=== PATIENT | female | born 1965 | race African-American/Black ===

== ENCOUNTER 2016-07-13 19:09 | Emergency (ER) | payer MEDICAID ==
[~2016-07-13 19:09] MED LIST: ARIP10TA14 PO; BENADRYL; DILANTIN; PHEN100C4 PO; PREVACID; QUET100T PO; SOMA; TYLENOL #3; VICODIN
== END 2016-07-14 02:16 | disposition left against medical advice (07) ==
LOC: ER 07-14 01:10
DX: R45.851 Suicidal ideations (principal); Z53.21 Procedure and treatment not carried out due to patient leaving prior to being seen by health care provider

== ENCOUNTER 2016-07-14 01:54 | Emergency (ER) | payer MEDICAID ==
[~2016-07-14] VITALS: Ht 162.6 cm; Wt 62.0 kg
[2016-07-14 06:30] LABS: BASOPHILS % 0.6 % (0.0-2.0); DIFFERENTIAL COMMENT 0; EOSINOPHILS % 2.8 % (0.0-5.0); HEMATOCRIT. 33.3 % (36.0-48.0); HEMOGLOBIN. 10.6 g/dL (12.0-16.0); LYMPHOCYTES % 45.4 % (20.0-50.0); MEAN CORPUSCULAR HEMOGLOBIN 25.6 pg (28.0-32.0); MEAN CORPUSCULAR VOLUME 79.9 fL (81.0-99.0); MEAN PLATELET VOLUME 7.3 fl (7.4-10.4); MONOCYTES % 8.1 % (2.0-8.0); NEUTROPHILS % 43.1 % (40.0-76.0); PLATELET 264 x1000/uL (130-400); RED BLOOD CELL COUNT 4.16 mill/uL (4.2-5.4); RED CELL DISTRIBUTION WIDTH 20.4 % (11.6-14.6); WHITE BLOOD COUNT 4.3 x1000/uL (4.5-11.0)
[2016-07-14] MEDS ORDERED: OLANZAPINE 5MG TABLET ODT PO ONE (06:30)
[2016-07-14 06:36] LABS: CHLORIDE 102 mEq/L (98-107)
[2016-07-14 06:44] LABS: ACETAMINOPHEN < 2 ug/mL (10-30); ALANINE AMINOTRANSFERASE 28 IU/L (13-61); ALBUMIN 4.2 g/dL (3.4-5.0); ANION GAP 10; CALCIUM 9.5 mg/dL (8.5-10.1); CARBON DIOXIDE 34 mEq/L (21-32); ETHANOL BLOOD < 10 mg/dL; INDEX HEMOLYSI 1 (1-3); INDEX ICTERIC 1 (1-4); INDEX LIPEMIC 1 (1-3); UREA NITROGEN BLOOD 10 mg/dL (7-21); eGFR > 60 mL/min (>60)
[2016-07-14 06:47] LABS: CLARITY URINE CLEAR (CLEAR); COLOR URINE YELLOW (YELLOW); GLUCOSE URINE NEGATIVE (NEGATIVE); KETONES URINE NEGATIVE (NEGATIVE); LEUKOCYTE ESTERASE URINE 3+ (NEGATIVE); NITRITE URINE NEGATIVE (NEGATIVE); OCCULT BLOOD URINE TRACE (NEGATIVE); PH URINE 6.5 (4.5-8.0); PROTEIN URINE NEGATIVE (NEGATIVE); SPECIFIC GRAVITY URINE 1.015 (1.005-1.030); UROBILINOGEN URINE 0.2 E.U./dL (0.2-1.0)
[2016-07-14] MEDS ORDERED: IBUPROFEN 600MG TABLET PO ONE (07:00)
[2016-07-14] MEDS ORDERED: PHENYTOIN SODIUM EXTENDED 100MG CAPSULE PO ONE (07:00)
[2016-07-14 07:09] LABS: SQUAMOUS EPITHELIAL CELL URINE FEW /lpf (RARE/1+)
[2016-07-14 07:11] LABS: BACTERIA URINE NONE SEEN
[2016-07-14 07:13] LABS: *AMPHETAMINES SCREEN URINE NEGATIVE (NEGATIVE); *BARBITURATES SCREEN URINE NEGATIVE (NEGATIVE); *BENZODIAZEPINES SCREEN URINE NEGATIVE (NEGATIVE); *COCAINE SCREEN URINE NEGATIVE (NEGATIVE); CANNABINOID URINE SCREEN NEGATIVE (NEGATIVE); ECSTASY MDMA SCREEN URINE NEGATIVE (NEGATIVE); METHADONE URINE SCREEN NEGATIVE (NEGATIVE); OPIATES URINE SCREEN PRESUMTIVE POSITIVE (NEGATIVE); PHENCYCLIDINE URINE SCREEN NEGATIVE (NEGATIVE)
[2016-07-15] MEDS ORDERED: PHENYTOIN SODIUM EXTENDED 100MG CAPSULE PO ONE (08:15)
[2016-07-15] MEDS ORDERED: LORAZEPAM 1MG TABLET PO ONE (13:30)
[2016-07-15] MEDS: LORAZEPAM 0.5MG TABLET PO PRN ×2 (22:00→22:01)
[2016-07-16 09:30] VITALS: BP 114/92
[2016-07-16] MEDS ORDERED: ACETAMINOPHEN 325MG TABLET PO ONE (10:30)
[2016-07-16] MEDS ORDERED: PHENYTOIN SODIUM EXTENDED 100MG CAPSULE PO ONE (11:15)
== END 2016-07-16 12:34 | disposition home or self-care (01) ==
LOC: ER 02:40
DX: F25.9 Schizoaffective disorder, unspecified (principal); R45.851 Suicidal ideations; K85.90 Acute pancreatitis without necrosis or infection, unspecified; K21.9 Gastro-esophageal reflux disease without esophagitis; F31.9 Bipolar disorder, unspecified; F17.200 Nicotine dependence, unspecified, uncomplicated; M79.89 Other specified soft tissue disorders; R56.9 Unspecified convulsions; I25.2 Old myocardial infarction; F14.10 Cocaine abuse, uncomplicated; I10 Essential (primary) hypertension; Z85.42 Personal history of malignant neoplasm of other parts of uterus; Z86.73 Personal history of transient ischemic attack (TIA), and cerebral infarction without residual deficits; Z98.890 Other specified postprocedural states; Z98.51 Tubal ligation status; Z86.718 Personal history of other venous thrombosis and embolism
CPT/HCPCS: 36415; 73630; 80053; 80185; 80305; 80307; 80329; 81001; 85025; 99285; G0482; Z7610

== ENCOUNTER 2016-08-30 19:28 | Inpatient (IN) | payer MEDICAID ==
[~2016-08-30] VITALS: Ht 162.6 cm; Wt 66.2 kg
[2016-08-31] MEDS ORDERED: MORPHINE SULFATE 4 MG/ML CPJ (NOT FOR IM USE) IV STA (02:32)
[2016-08-31] MEDS ORDERED: ONDANSETRON HCL 4MG/2ML VIAL IV STA (02:32)
[2016-08-31 02:58] LABS: BASOPHILS % 0.5 % (0.0-2.0); EOSINOPHILS % 2.7 % (0.0-5.0); HEMATOCRIT. 31.3 % (36.0-48.0); HEMOGLOBIN. 10.1 g/dL (12.0-16.0); LYMPHOCYTES % 42.4 % (20.0-50.0); MEAN CORPUSCULAR HEMOGLOBIN 26.1 pg (28.0-32.0); MEAN CORPUSCULAR HGB CONC 32.2 g/dL (31.0-37.0); MEAN CORPUSCULAR VOLUME 81.1 fL (81.0-99.0); MEAN PLATELET VOLUME 7.7 fl (7.4-10.4); MONOCYTES % 12.7 % (2.0-8.0); NEUTROPHILS % 41.7 % (40.0-76.0); PLATELET 219 x1000/uL (130-400); RED BLOOD CELL COUNT 3.86 mill/uL (4.2-5.4); RED CELL DISTRIBUTION WIDTH 20.9 % (11.6-14.6); WHITE BLOOD COUNT 4.9 x1000/uL (4.5-11.0)
[2016-08-31 03:06] LABS: HCG SCREEN NEGATIVE; INR 1.1; PROTHROMBIN TIME 11.6 sec
[2016-08-31 03:12] LABS: ALANINE AMINOTRANSFERASE 21 IU/L (13-61); ALBUMIN 3.4 g/dL (3.4-5.0); CALCIUM 8.6 mg/dL (8.5-10.1); CARBON DIOXIDE 28 mEq/L (21-32); INDEX HEMOLYSI 1 (1-3); INDEX ICTERIC 1 (1-4); INDEX LIPEMIC 1 (1-3); LIPASE 278 IU/L (73-393); UREA NITROGEN BLOOD 13 mg/dL (7-21); eGFR > 60 mL/min (>60)
[2016-08-31 03:32] LABS: ANION GAP 14; CHLORIDE 105 mEq/L (98-107)
[2016-08-31 08:54] LABS: CLARITY URINE CLEAR (CLEAR); COLOR URINE DARK YELLOW (YELLOW); GLUCOSE URINE 1+ (NEGATIVE); KETONES URINE TRACE (NEGATIVE); LEUKOCYTE ESTERASE URINE NEGATIVE (NEGATIVE); NITRITE URINE NEGATIVE (NEGATIVE); OCCULT BLOOD URINE NEGATIVE (NEGATIVE); PROTEIN URINE NEGATIVE (NEGATIVE); SPECIFIC GRAVITY URINE 1.033 (1.005-1.030)
[2016-08-31] MEDS ORDERED: ASPIRIN 81MG TABLET PO STA (09:09)
[2016-08-31 09:11] LABS: BACTERIA URINE TRACE; MUCUS URINE 2+ /lpf (< = 2+); RBC URINE NONE SEEN /hpf (0-2); SQUAMOUS EPITHELIAL CELL URINE FEW /lpf (RARE/1+); WBC URINE 0-2 /hpf (0-2)
[2016-08-31] MEDS ORDERED: NITROGLYCERIN 0.4MG TABLET SL SL PRN (09:15)
[2016-08-31 09:44] LABS: D-DIMER 0.27 mg/L FEU (<0.50); INR 1.1; PROTHROMBIN TIME 11.5 sec
[2016-08-31] MEDS ORDERED: IOHEXOL-350 100 ML BOTTLE ONE (12:34)
[2016-08-31] MEDS ORDERED: SODIUM CHLORIDE 0.9% 10ML VIAL ONE (12:34)
[2016-08-31] MEDS ORDERED: MORPHINE SULFATE 2 MG/ML CPJ (NOT FOR IM USE) IV SCH (17:15)
[2016-08-31] MEDS ORDERED: ACETAMINOPHEN 650MG/20.3ML UDC GT PRN (18:15)
[2016-08-31] MEDS ORDERED: LORAZEPAM 2MG/ML CPJ IV PRN (18:15)
[2016-08-31] MEDS ORDERED: ONDANSETRON HCL 4MG/2ML VIAL IV PRN (18:15)
[2016-08-31] MEDS ORDERED: HYDROMORPHONE HCL/PF 2MG/ML CPJ IV PRN (18:15)
[2016-08-31] MEDS ORDERED: ENOXAPARIN 40MG/0.4ML SYR SUBCUT SCH (18:15)
[2016-08-31 19:38] LABS: NT PRO B-TYPE NATRIURETIC PEP 91 pg/mL (5-125); TROPONIN I < 0.02 ng/mL (0.00-0.04)
[2016-08-31 19:39] LABS: CREATINE KINASE MB FRACTION 2.3 ng/mL (0.5-3.6)
[2016-08-31] MEDS: MORPHINE SULFATE 2 MG/ML CPJ (NOT FOR IM USE) IV PRN (20:01)
[2016-08-31 23:42] LABS: *AMPHETAMINES SCREEN URINE NEGATIVE (NEGATIVE); *BARBITURATES SCREEN URINE NEGATIVE (NEGATIVE); *BENZODIAZEPINES SCREEN URINE NEGATIVE (NEGATIVE); *COCAINE SCREEN URINE PRESUMTIVE POSITIVE (NEGATIVE); CANNABINOID URINE SCREEN NEGATIVE (NEGATIVE); ECSTASY MDMA SCREEN URINE NEGATIVE (NEGATIVE); METHADONE URINE SCREEN NEGATIVE (NEGATIVE); OPIATES URINE SCREEN PRESUMTIVE POSITIVE (NEGATIVE); PHENCYCLIDINE URINE SCREEN NEGATIVE (NEGATIVE)
[2016-09-01] MEDS: MORPHINE SULFATE 2 MG/ML CPJ (NOT FOR IM USE) IV PRN ×4 (01:30→14:46)
[2016-09-01 06:51] LABS: BASOPHILS % 0.5 % (0.0-2.0); EOSINOPHILS % 2.2 % (0.0-5.0); HEMATOCRIT. 33.1 % (36.0-48.0); HEMOGLOBIN. 10.7 g/dL (12.0-16.0); LYMPHOCYTES % 59.6 % (20.0-50.0); MEAN CORPUSCULAR HEMOGLOBIN 25.8 pg (28.0-32.0); MEAN CORPUSCULAR HGB CONC 32.2 g/dL (31.0-37.0); MEAN CORPUSCULAR VOLUME 80.2 fL (81.0-99.0); MEAN PLATELET VOLUME 7.9 fl (7.4-10.4); MONOCYTES % 9.3 % (2.0-8.0); NEUTROPHILS % 28.4 % (40.0-76.0); PLATELET 237 x1000/uL (130-400); RED BLOOD CELL COUNT 4.13 mill/uL (4.2-5.4); WHITE BLOOD COUNT 4.2 x1000/uL (4.5-11.0)
[2016-09-01 07:48] LABS: ANION GAP 11; CALCIUM 8.6 mg/dL (8.5-10.1); CARBON DIOXIDE 31 mEq/L (21-32); CHLORIDE 103 mEq/L (98-107); CREATINE KINASE MB FRACTION 1.8 ng/mL (0.5-3.6); INDEX HEMOLYSI 1 (1-3); INDEX ICTERIC 1 (1-4); INDEX LIPEMIC 1 (1-3); UREA NITROGEN BLOOD 12 mg/dL (7-21); eGFR > 60 mL/min (>60)
[2016-09-01] MEDS: PHENYTOIN SODIUM EXTENDED 100MG CAPSULE PO SCH (12:52)
[2016-09-01] MEDS: ARIPIPRAZOLE 10MG TABLET PO SCH (12:52)
[2016-09-01] MEDS ORDERED: QUETIAPINE FUMARATE 100MG TABLET PO SCH (17:00)
[2016-09-01] MEDS: ENOXAPARIN 40MG/0.4ML SYR SUBCUT SCH ×2 (17:29→17:33)
[2016-09-02] MEDS: PHENYTOIN SODIUM EXTENDED 100MG CAPSULE PO SCH ×2 (00:19→06:06)
[2016-09-02] MEDS: MORPHINE SULFATE 2 MG/ML CPJ (NOT FOR IM USE) IV PRN ×2 (03:18→08:57)
[2016-09-02] MEDS: ARIPIPRAZOLE 10MG TABLET PO SCH (08:56)
[2016-09-02 10:08] VITALS: BP 141/80
== END 2016-09-02 12:00 | disposition home or self-care (01) | DRG 198 ==
LOC: ER 19:28 → 8WST 08-31 10:58
PROVIDERS: ADMIT Internal Medicine Nephrology; ATTEND Internal Medicine Nephrology
DX: R07.89 Other chest pain (principal); I25.2 Old myocardial infarction; I27.2 Other secondary pulmonary hypertension; I11.9 Hypertensive heart disease without heart failure; J44.9 Chronic obstructive pulmonary disease, unspecified; K21.9 Gastro-esophageal reflux disease without esophagitis; F19.10 Other psychoactive substance abuse, uncomplicated; F17.200 Nicotine dependence, unspecified, uncomplicated; Z59.0 Homelessness; Z79.01 Long term (current) use of anticoagulants; Z86.73 Personal history of transient ischemic attack (TIA), and cerebral infarction without residual deficits; Z86.718 Personal history of other venous thrombosis and embolism; Z91.19 Patient's noncompliance with other medical treatment and regimen; Z87.11 Personal history of peptic ulcer disease
CPT/HCPCS: 36415; 71010; 71275; 76705; 80048; 80053; 80305; 81001; 82553; 83690; 83880; 84484; 84703; 85025; 85379; 85610; 85730; 93005; 93970; 99285; A4216; J1650; J2270; Q9967

== ENCOUNTER 2016-10-02 16:43 | Emergency (ER) | payer MEDICAID ==
[~2016-10-02] VITALS: Ht 162.6 cm; Wt 66.0 kg
[~2016-10-02 16:43] MED LIST changes: +ABIL10 PO; -ARIP10TA14 PO
[2016-10-02] MEDS ORDERED: FAMOTIDINE 20MG/2ML VIAL IV STA (18:33)
[2016-10-02] MEDS ORDERED: SODIUM CHLORIDE 0.9% 500 ML IV ONE (18:33)
[2016-10-02] MEDS ORDERED: MORPHINE SULFATE 4 MG/ML CPJ (NOT FOR IM USE) IV STA (18:33)
[2016-10-02] MEDS ORDERED: ONDANSETRON HCL 4MG/2ML VIAL IV STA (18:33)
[2016-10-02 19:02] LABS: BASOPHILS % 0.6 % (0.0-2.0); EOSINOPHILS % 2.4 % (0.0-5.0); HEMATOCRIT. 33.3 % (36.0-48.0); HEMOGLOBIN. 10.9 g/dL (12.0-16.0); LYMPHOCYTES % 58.3 % (20.0-50.0); MEAN CORPUSCULAR HEMOGLOBIN 26.9 pg (28.0-32.0); MEAN CORPUSCULAR VOLUME 82.3 fL (81.0-99.0); MEAN PLATELET VOLUME 7.4 fl (7.4-10.4); MONOCYTES % 9.8 % (2.0-8.0); NEUTROPHILS % 28.9 % (40.0-76.0); PLATELET 201 x1000/uL (130-400); RED BLOOD CELL COUNT 4.04 mill/uL (4.2-5.4); RED CELL DISTRIBUTION WIDTH 20.4 % (11.6-14.6)
[2016-10-02 19:08] LABS: PARTIAL THROMBOPLASTIN TIME 24.3 sec (24.0-34.0); PROTHROMBIN TIME 10.7 sec
[2016-10-02 19:15] LABS: CARBON DIOXIDE 30 mEq/L (21-32); CHLORIDE 106 mEq/L (98-107); CREATINE KINASE 204 IU/L (26-192); CREATINE KINASE MB FRACTION 2.8 ng/mL (0.5-3.6); PHENYTOIN 5.2 ug/mL (10-20); TROPONIN I < 0.02 ng/mL (0.00-0.04)
[2016-10-02] MEDS ORDERED: PHENYTOIN SODIUM 500 MG in SODIUM CHLORIDE 0.9% 50 ML IV ONE (20:00)
[2016-10-02 21:13] LABS: GLUCOSE URINE NEGATIVE (NEGATIVE); KETONES URINE TRACE (NEGATIVE); LEUKOCYTE ESTERASE URINE NEGATIVE (NEGATIVE); NITRITE URINE NEGATIVE (NEGATIVE); OCCULT BLOOD URINE NEGATIVE (NEGATIVE); PROTEIN URINE 1+ (NEGATIVE); SPECIFIC GRAVITY URINE 1.042 (1.005-1.030)
[2016-10-02 21:14] LABS: CLARITY URINE CLEAR (CLEAR); COLOR URINE YELLOW (YELLOW)
[2016-10-02 21:27] LABS: *AMPHETAMINES SCREEN URINE PRESUMTIVE POSITIVE (NEGATIVE); *BARBITURATES SCREEN URINE NEGATIVE (NEGATIVE); *BENZODIAZEPINES SCREEN URINE NEGATIVE (NEGATIVE); *COCAINE SCREEN URINE PRESUMTIVE POSITIVE (NEGATIVE); CANNABINOID URINE SCREEN NEGATIVE (NEGATIVE); METHADONE URINE SCREEN NEGATIVE (NEGATIVE); OPIATES URINE SCREEN NEGATIVE (NEGATIVE); PHENCYCLIDINE URINE SCREEN NEGATIVE (NEGATIVE)
[2016-10-03 00:15] VITALS: BP 132/72
== END 2016-10-03 00:46 | disposition home or self-care (01) ==
LOC: ER 22:19
DX: R10.13 Epigastric pain (principal); F14.129 Cocaine abuse with intoxication, unspecified; F15.129 Other stimulant abuse with intoxication, unspecified; M19.90 Unspecified osteoarthritis, unspecified site; I25.10 Atherosclerotic heart disease of native coronary artery without angina pectoris
CPT/HCPCS: 36415; 74022; 80053; 80185; 80305; 81001; 82550; 82553; 83690; 84484; 85025; 85610; 85730; 93005; 96361; 96365; 99285; J1165; J7040

== ENCOUNTER 2016-10-04 22:15 | Emergency (ER) | payer MEDICAID ==
[~2016-10-04] VITALS: Ht 162.6 cm; Wt 63.0 kg
[2016-10-05 05:25] VITALS: BP 150/90
[2016-10-05 06:43] LABS: BASOPHILS % 0.9 % (0.0-2.0); EOSINOPHILS % 2.6 % (0.0-5.0); HEMATOCRIT. 35.8 % (36.0-48.0); HEMOGLOBIN. 11.7 g/dL (12.0-16.0); LYMPHOCYTES % 52.1 % (20.0-50.0); MEAN CORPUSCULAR HEMOGLOBIN 26.7 pg (28.0-32.0); MEAN CORPUSCULAR VOLUME 81.8 fL (81.0-99.0); MEAN PLATELET VOLUME 7.3 fl (7.4-10.4); MONOCYTES % 7.9 % (2.0-8.0); NEUTROPHILS % 36.5 % (40.0-76.0); PLATELET 170 x1000/uL (130-400); RED BLOOD CELL COUNT 4.38 mill/uL (4.2-5.4); RED CELL DISTRIBUTION WIDTH 20.2 % (11.6-14.6)
[2016-10-05 06:47] LABS: CHLORIDE 103 mEq/L (98-107)
[2016-10-05 06:55] LABS: CARBON DIOXIDE 30 mEq/L (21-32)
== END 2016-10-05 07:15 | disposition home or self-care (01) ==
LOC: ER 10-05 05:43
DX: R10.13 Epigastric pain (principal); F14.10 Cocaine abuse, uncomplicated; Z98.51 Tubal ligation status
CPT/HCPCS: 36415; 80053; 83690; 85025; 99284

== ENCOUNTER 2016-12-02 16:35 | Emergency (ER) | payer MEDICAID ==
[~2016-12-02] VITALS: Ht 162.6 cm; Wt 62.5 kg
[2016-12-02] MEDS ORDERED: NITROGLYCERIN (16:38)
[2016-12-02] MEDS ORDERED: ASPIRIN (16:38)
[2016-12-02 18:41] LABS: CHLORIDE 106 mEq/L (98-107)
[2016-12-02 18:42] LABS: PROTHROMBIN TIME 10.7 sec
[2016-12-02 18:48] LABS: CARBON DIOXIDE 27 mEq/L (21-32)
[2016-12-02 18:49] LABS: BASOPHILS % 0.9 % (0.0-2.0); EOSINOPHILS % 4.2 % (0.0-5.0); HEMATOCRIT. 33.9 % (36.0-48.0); HEMOGLOBIN. 11.2 g/dL (12.0-16.0); LYMPHOCYTES % 54.4 % (20.0-50.0); MEAN CORPUSCULAR HEMOGLOBIN 27.5 pg (28.0-32.0); MEAN CORPUSCULAR VOLUME 83.6 fL (81.0-99.0); MEAN PLATELET VOLUME 7.8 fl (7.4-10.4); MONOCYTES % 8.5 % (2.0-8.0); PLATELET 216 x1000/uL (130-400); RED BLOOD CELL COUNT 4.05 mill/uL (4.2-5.4); RED CELL DISTRIBUTION WIDTH 19.1 % (11.6-14.6)
[2016-12-02 19:30] VITALS: BP 104/60
== END 2016-12-02 19:58 | disposition home or self-care (01) ==
LOC: ER 16:35
DX: R10.84 Generalized abdominal pain (principal); F17.200 Nicotine dependence, unspecified, uncomplicated; F11.10 Opioid abuse, uncomplicated; J45.909 Unspecified asthma, uncomplicated; E11.9 Type 2 diabetes mellitus without complications; I11.9 Hypertensive heart disease without heart failure; I51.9 Heart disease, unspecified; Z86.73 Personal history of transient ischemic attack (TIA), and cerebral infarction without residual deficits; Z59.0 Homelessness
CPT/HCPCS: 36415; 80048; 85025; 85610; 99284; Z7610

== ENCOUNTER 2016-12-18 23:52 | Emergency (ER) | payer MEDICAID ==
[~2016-12-18] VITALS: Ht 167.6 cm; Wt 73.0 kg
[~2016-12-18 23:52] MED LIST changes: +ASPIRIN; +NITROGLYCERIN
[2016-12-19 03:29] LABS: BASOPHILS % 0.6 % (0.0-2.0); EOSINOPHILS % 2.7 % (0.0-5.0); HEMATOCRIT. 30.6 % (36.0-48.0); HEMOGLOBIN. 10.2 g/dL (12.0-16.0); LYMPHOCYTES % 52.8 % (20.0-50.0); MEAN CORPUSCULAR HEMOGLOBIN 27.7 pg (28.0-32.0); MEAN CORPUSCULAR VOLUME 83.4 fL (81.0-99.0); MEAN PLATELET VOLUME 7.6 fl (7.4-10.4); NEUTROPHILS % 31.9 % (40.0-76.0); PLATELET 200 x1000/uL (130-400); RED BLOOD CELL COUNT 3.67 mill/uL (4.2-5.4)
[2016-12-19 03:43] LABS: CARBON DIOXIDE 30 mEq/L (21-32); CHLORIDE 107 mEq/L (98-107)
[2016-12-19 05:00] VITALS: BP 110/63
== END 2016-12-19 05:45 | disposition home or self-care (01) ==
LOC: ER 23:52
DX: R07.89 Other chest pain (principal); R10.84 Generalized abdominal pain; Z87.19 Personal history of other diseases of the digestive system; Z90.710 Acquired absence of both cervix and uterus; Z79.899 Other long term (current) drug therapy
CPT/HCPCS: 36415; 71010; 80053; 85025; 93005; 99285

== ENCOUNTER 2017-01-06 09:51 | Emergency (ER) | payer MEDICAID ==
[~2017-01-06] VITALS: Ht 157.5 cm; Wt 67.0 kg
[2017-01-06 11:16] LABS: BASOPHILS % 0.5 % (0.0-2.0); EOSINOPHILS % 2.6 % (0.0-5.0); HEMATOCRIT. 35.3 % (36.0-48.0); HEMOGLOBIN. 11.6 g/dL (12.0-16.0); LYMPHOCYTES % 32.5 % (20.0-50.0); MEAN CORPUSCULAR HEMOGLOBIN 27.5 pg (28.0-32.0); MEAN CORPUSCULAR VOLUME 84.1 fL (81.0-99.0); MEAN PLATELET VOLUME 7.6 fl (7.4-10.4); NEUTROPHILS % 55.4 % (40.0-76.0); PLATELET 215 x1000/uL (130-400); RED CELL DISTRIBUTION WIDTH 18.5 % (11.6-14.6)
[2017-01-06 11:24] LABS: PROTHROMBIN TIME 10.8 sec (9.4-11.6)
[2017-01-06 11:28] LABS: CARBON DIOXIDE 31 mEq/L (21-32); CHLORIDE 102 mEq/L (98-107)
[2017-01-06 11:34] LABS: TROPONIN I < 0.02 ng/mL (0.00-0.04)
[2017-01-06] MEDS ORDERED: KETOROLAC 30MG/ML VIAL IV ONE (13:00)
[2017-01-06 13:36] VITALS: BP 126/71
[2017-03-10] MEDS ORDERED: PHEN100C4 PO (02:46)
[2017-03-10] MEDS ORDERED: CARI350T27 PO (02:46)
[2017-03-10] MEDS ORDERED: HYDR-519 PO (02:46)
[2017-03-10] MEDS ORDERED: IBUP-2030 PO (02:46)
== END 2017-01-06 13:36 | disposition home or self-care (01) ==
LOC: ER 11:01
DX: S09.8XXA Other specified injuries of head, initial encounter (principal); M54.9 Dorsalgia, unspecified; F17.200 Nicotine dependence, unspecified, uncomplicated; F14.10 Cocaine abuse, uncomplicated; W22.8XXA Striking against or struck by other objects, initial encounter; Y93.89 Activity, other specified; Y92.89 Other specified places as the place of occurrence of the external cause; Y99.8 Other external cause status
CPT/HCPCS: 36415; 70450; 71010; 80053; 83880; 84484; 85025; 85610; 93005; 96374; 99285; J1885; Z7610

== ENCOUNTER 2017-02-08 16:52 | Emergency (ER) | payer MEDICAID ==
[~2017-02-08] VITALS: Ht 162.6 cm; Wt 67.0 kg
[2017-02-09 07:14] LABS: HEMATOCRIT. 32.5 % (36.0-48.0); HEMOGLOBIN. 10.7 g/dL (12.0-16.0); MEAN CORPUSCULAR HEMOGLOBIN 27.9 pg (28.0-32.0); MEAN CORPUSCULAR VOLUME 84.7 fL (81.0-99.0); MEAN PLATELET VOLUME 7.7 fl (7.4-10.4); PLATELET 184 x1000/uL (130-400); RED BLOOD CELL COUNT 3.84 mill/uL (4.2-5.4)
[2017-02-09 07:26] LABS: CARBON DIOXIDE 26 mEq/L (21-32); CHLORIDE 109 mEq/L (98-107); ETHANOL BLOOD < 10 mg/dL
[2017-02-09 07:53] LABS: *AMPHETAMINES SCREEN URINE NEGATIVE (NEGATIVE); *BARBITURATES SCREEN URINE NEGATIVE (NEGATIVE); *BENZODIAZEPINES SCREEN URINE NEGATIVE (NEGATIVE); *COCAINE SCREEN URINE PRESUMTIVE POSITIVE (NEGATIVE); CANNABINOID URINE SCREEN NEGATIVE (NEGATIVE); METHADONE URINE SCREEN NEGATIVE (NEGATIVE); OPIATES URINE SCREEN NEGATIVE (NEGATIVE); PHENCYCLIDINE URINE SCREEN NEGATIVE (NEGATIVE)
[2017-02-09 09:26] LABS: PLATELET ESTIMATE NORMAL
[2017-02-09] MEDS ORDERED: TRAMADOL 50MG TABLET PO ONE (10:00)
[2017-02-09] MEDS ORDERED: IBUPROFEN 600MG TABLET PO ONE (10:00)
[2017-02-09 10:12] VITALS: BP 127/69
[2017-03-10] MEDS ORDERED: IBUP-2030 PO (02:46)
[2017-03-10] MEDS ORDERED: PHEN100C4 PO (02:46)
[2017-03-10] MEDS ORDERED: CARI350T27 PO (02:46)
[2017-03-10] MEDS ORDERED: HYDR-519 PO (02:46)
== END 2017-02-09 10:23 | disposition home or self-care (01) ==
LOC: ER 16:52
DX: K02.9 Dental caries, unspecified (principal); F32.9 Major depressive disorder, single episode, unspecified; R51 Headache; H92.02 Otalgia, left ear; M79.604 Pain in right leg; M79.605 Pain in left leg; F14.10 Cocaine abuse, uncomplicated; F17.200 Nicotine dependence, unspecified, uncomplicated; I25.2 Old myocardial infarction; Z86.73 Personal history of transient ischemic attack (TIA), and cerebral infarction without residual deficits; Z86.718 Personal history of other venous thrombosis and embolism; Z90.710 Acquired absence of both cervix and uterus
CPT/HCPCS: 36415; 80048; 80305; 80307; 80329; 85025; 99284; G0482

== ENCOUNTER 2017-05-03 06:33 | Emergency (ER) | payer MEDICAID ==
[~2017-05-03] VITALS: Ht 170.2 cm; Wt 59.0 kg
[~2017-05-03 06:33] MED LIST changes: +CARI350T27 PO; +HYDR-519 PO; +IBUP-2030 PO
[2017-05-03 06:43] VITALS: BP 122/80
== END 2017-05-03 16:52 | disposition left against medical advice (07) ==
LOC: ER 07:14
DX: R51 Headache (principal); Z53.21 Procedure and treatment not carried out due to patient leaving prior to being seen by health care provider

== ENCOUNTER 2017-05-03 17:18 | Emergency (ER) | payer MEDICAID ==
[~2017-05-03] VITALS: Ht 162.6 cm; Wt 67.0 kg
[2017-05-04 03:30] LABS: BASOPHILS % 0.4 % (0.0-2.0); EOSINOPHILS % 2.7 % (0.0-5.0); HEMATOCRIT. 35.3 % (36.0-48.0); HEMOGLOBIN. 11.5 g/dL (12.0-16.0); LYMPHOCYTES % 49.1 % (20.0-50.0); MEAN CORPUSCULAR HEMOGLOBIN 27.6 pg (28.0-32.0); MEAN CORPUSCULAR VOLUME 84.4 fL (81.0-99.0); MEAN PLATELET VOLUME 7.5 fl (7.4-10.4); MONOCYTES % 13.9 % (2.0-8.0); NEUTROPHILS % 33.9 % (40.0-76.0); PLATELET 199 x1000/uL (130-400); RED BLOOD CELL COUNT 4.18 mill/uL (4.2-5.4)
[2017-05-04 03:43] LABS: CARBON DIOXIDE 29 mEq/L (21-32); CHLORIDE 107 mEq/L (98-107); TROPONIN I < 0.02 ng/mL (0.00-0.04)
[2017-05-04 06:11] VITALS: BP 96/60
[2017-05-04] MEDS ORDERED: PHENYTOIN SODIUM EXTENDED 100MG CAPSULE PO SCH (06:15)
== END 2017-05-04 06:40 | disposition home or self-care (01) ==
LOC: ER 18:32
DX: R07.89 Other chest pain (principal); I50.9 Heart failure, unspecified; J45.909 Unspecified asthma, uncomplicated; F12.10 Cannabis abuse, uncomplicated; D64.9 Anemia, unspecified; F17.200 Nicotine dependence, unspecified, uncomplicated; Z98.51 Tubal ligation status; Z79.82 Long term (current) use of aspirin; Z98.890 Other specified postprocedural states
CPT/HCPCS: 36415; 71045; 80053; 80185; 84484; 85025; 93005; 99285; Z7610

== ENCOUNTER 2017-06-03 13:25 | Emergency (ER) | payer MEDICAID ==
[~2017-06-03] VITALS: Ht 162.6 cm; Wt 67.0 kg
[2017-06-03] MEDS ORDERED: PHENYTOIN SODIUM EXTENDED 100MG CAPSULE PO ONE (17:45)
[2017-06-03 17:57] LABS: BASOPHILS % 0.5 % (0.0-2.0); EOSINOPHILS % 2.4 % (0.0-5.0); HEMATOCRIT. 32.1 % (36.0-48.0); HEMOGLOBIN. 10.9 g/dL (12.0-16.0); LYMPHOCYTES % 52.2 % (20.0-50.0); MEAN CORPUSCULAR HEMOGLOBIN 28.5 pg (28.0-32.0); MEAN CORPUSCULAR VOLUME 83.8 fL (81.0-99.0); MEAN PLATELET VOLUME 7.3 fl (7.4-10.4); MONOCYTES % 8.6 % (2.0-8.0); NEUTROPHILS % 36.3 % (40.0-76.0); PLATELET 252 x1000/uL (130-400); RED BLOOD CELL COUNT 3.83 mill/uL (4.2-5.4); RED CELL DISTRIBUTION WIDTH 17.9 % (11.6-14.6)
[2017-06-03 18:09] LABS: CHLORIDE 104 mEq/L (98-107)
[2017-06-03 18:10] LABS: PARTIAL THROMBOPLASTIN TIME 25.3 sec (23.4-31.0); PROTHROMBIN TIME 10.9 sec (9.4-11.6)
[2017-06-03 18:16] LABS: TROPONIN I < 0.02 ng/mL (0.00-0.04)
[2017-06-03 20:38] LABS: CLARITY URINE CLEAR (CLEAR); COLOR URINE YELLOW (YELLOW); KETONES URINE NEGATIVE (NEGATIVE); LEUKOCYTE ESTERASE URINE NEGATIVE (NEGATIVE); NITRITE URINE NEGATIVE (NEGATIVE); OCCULT BLOOD URINE NEGATIVE (NEGATIVE); PH URINE 6.5 (4.5-8.0); PROTEIN URINE NEGATIVE (NEGATIVE); SPECIFIC GRAVITY URINE 1.011 (1.005-1.030); UROBILINOGEN URINE 0.2 E.U./dL (0.2-1.0)
[2017-06-03 21:14] LABS: *AMPHETAMINES SCREEN URINE NEGATIVE (NEGATIVE); *BARBITURATES SCREEN URINE NEGATIVE (NEGATIVE); *BENZODIAZEPINES SCREEN URINE NEGATIVE (NEGATIVE); *COCAINE SCREEN URINE PRESUMTIVE POSITIVE (NEGATIVE); CANNABINOID URINE SCREEN NEGATIVE (NEGATIVE); METHADONE URINE SCREEN NEGATIVE (NEGATIVE); OPIATES URINE SCREEN NEGATIVE (NEGATIVE); PHENCYCLIDINE URINE SCREEN NEGATIVE (NEGATIVE)
[2017-06-03 22:27] VITALS: BP 110/64
== END 2017-06-03 22:27 | disposition home or self-care (01) ==
LOC: ER 14:56
DX: T40.5X1A Poisoning by cocaine, accidental (unintentional), initial encounter (principal); R07.89 Other chest pain; F14.188 Cocaine abuse with other cocaine-induced disorder; Y92.89 Other specified places as the place of occurrence of the external cause; G40.909 Epilepsy, unspecified, not intractable, without status epilepticus; I51.7 Cardiomegaly
CPT/HCPCS: 36415; 71045; 80053; 80305; 81003; 83690; 83880; 84484; 85025; 85610; 85730; 93005; 99285

== ENCOUNTER 2017-06-14 00:56 | Emergency (ER) | payer MEDICAID ==
[~2017-06-14] VITALS: Ht 160 cm; Wt 72.0 kg
[2017-06-14] MEDS ORDERED: ACETAMINOPHEN 325MG TABLET PO STA (05:30)
[2017-06-14 05:56] LABS: BASOPHILS % 0.6 % (0.0-2.0); EOSINOPHILS % 3.1 % (0.0-5.0); HEMATOCRIT. 39.4 % (36.0-48.0); HEMOGLOBIN. 12.8 g/dL (12.0-16.0); MEAN CORPUSCULAR HEMOGLOBIN 27.7 pg (28.0-32.0); MEAN CORPUSCULAR VOLUME 84.8 fL (81.0-99.0); MONOCYTES % 12.4 % (2.0-8.0); NEUTROPHILS % 43.9 % (40.0-76.0); PLATELET 222 x1000/uL (130-400); RED BLOOD CELL COUNT 4.64 mill/uL (4.2-5.4); RED CELL DISTRIBUTION WIDTH 18.1 % (11.6-14.6)
[2017-06-14 05:59] LABS: CHLORIDE 101 mEq/L (98-107)
[2017-06-14 06:07] LABS: ETHANOL BLOOD < 10 mg/dL
[2017-06-14 06:30] LABS: PROTHROMBIN TIME 10.8 sec (9.4-11.6)
[2017-06-14] MEDS ORDERED: ACETAMINOPHEN WITH CODEINE 300/30MG TABLET PO NR (09:30)
[2017-06-14 09:57] LABS: CLARITY URINE CLEAR (CLEAR); COLOR URINE YELLOW (YELLOW); KETONES URINE NEGATIVE (NEGATIVE); LEUKOCYTE ESTERASE URINE NEGATIVE (NEGATIVE); NITRITE URINE NEGATIVE (NEGATIVE); OCCULT BLOOD URINE NEGATIVE (NEGATIVE); PH URINE 5.5 (4.5-8.0); PROTEIN URINE NEGATIVE (NEGATIVE); SPECIFIC GRAVITY URINE 1.029 (1.005-1.030); UROBILINOGEN URINE 0.2 E.U./dL (0.2-1.0)
[2017-06-14 10:11] LABS: *AMPHETAMINES SCREEN URINE NEGATIVE (NEGATIVE); *BARBITURATES SCREEN URINE NEGATIVE (NEGATIVE); *BENZODIAZEPINES SCREEN URINE NEGATIVE (NEGATIVE); *COCAINE SCREEN URINE PRESUMTIVE POSITIVE (NEGATIVE); CANNABINOID URINE SCREEN NEGATIVE (NEGATIVE); METHADONE URINE SCREEN NEGATIVE (NEGATIVE); OPIATES URINE SCREEN NEGATIVE (NEGATIVE); PHENCYCLIDINE URINE SCREEN NEGATIVE (NEGATIVE)
[2017-06-14 10:24] VITALS: BP 122/78
== END 2017-06-14 10:50 | disposition home or self-care (01) ==
LOC: ER 00:56
DX: R07.89 Other chest pain (principal); R10.30 Lower abdominal pain, unspecified; R11.0 Nausea; F19.10 Other psychoactive substance abuse, uncomplicated; E11.9 Type 2 diabetes mellitus without complications; I10 Essential (primary) hypertension; Z79.82 Long term (current) use of aspirin
CPT/HCPCS: 36415; 71045; 80053; 80305; 81003; 83690; 83880; 85025; 85610; 93005; 99285; G0482

== ENCOUNTER 2017-08-27 19:59 | Emergency (ER) | payer MEDICAID ==
[~2017-08-27] VITALS: Ht 154.9 cm; Wt 69.0 kg
[~2017-08-27 19:59] MED LIST changes: -ABIL10 PO; +ASPI-1159 PO; -ASPIRIN; -BENADRYL; -CARI350T27 PO; -DILANTIN; -IBUP-2030 PO; +NITR0.4T49 SL; -NITROGLYCERIN; -PREVACID; -SOMA; -TYLENOL #3; -VICODIN
[2017-08-27 20:29] LABS: EOSINOPHILS % 3.5 % (0.0-5.0); HEMATOCRIT. 34.5 % (36.0-48.0); HEMOGLOBIN. 11.8 g/dL (12.0-16.0); LYMPHOCYTES % 61.9 % (20.0-50.0); MEAN CORPUSCULAR HEMOGLOBIN 28.5 pg (28.0-32.0); MEAN CORPUSCULAR VOLUME 83.8 fL (81.0-99.0); MEAN PLATELET VOLUME 7.5 fl (7.4-10.4); MONOCYTES % 10.9 % (2.0-8.0); NEUTROPHILS % 22.7 % (40.0-76.0); PLATELET 250 x1000/uL (130-400); RED BLOOD CELL COUNT 4.12 mill/uL (4.2-5.4); RED CELL DISTRIBUTION WIDTH 18.2 % (11.6-14.6)
[2017-08-27 20:32] LABS: CHLORIDE 103 mEq/L (98-107)
[2017-08-27 20:34] LABS: INR 1.1; PARTIAL THROMBOPLASTIN TIME 25.2 sec (23.4-31.0)
[2017-08-27] MEDS ORDERED: PHENYTOIN SODIUM 100MG/2ML VIAL IV ONE (21:30)
[2017-08-27] MEDS ORDERED: PHENYTOIN SODIUM 1000MG in SODIUM CHLORIDE 0.9% 100ML IV NR (22:00)
[2017-08-27] MEDS ORDERED: PHENYTOIN SODIUM EXTENDED 100MG CAPSULE PO ONE (22:15)
[2017-08-28 00:57] VITALS: BP 114/70
== END 2017-08-28 01:02 | disposition home or self-care (01) ==
LOC: ER 21:51
DX: G40.909 Epilepsy, unspecified, not intractable, without status epilepticus (principal); J45.909 Unspecified asthma, uncomplicated; I50.9 Heart failure, unspecified; F17.200 Nicotine dependence, unspecified, uncomplicated; Z79.82 Long term (current) use of aspirin; Z85.42 Personal history of malignant neoplasm of other parts of uterus; Z86.73 Personal history of transient ischemic attack (TIA), and cerebral infarction without residual deficits; Z98.51 Tubal ligation status; Z91.19 Patient's noncompliance with other medical treatment and regimen; Z86.718 Personal history of other venous thrombosis and embolism
CPT/HCPCS: 36415; 71045; 80053; 80185; 83690; 83880; 84484; 85025; 85610; 85730; 93005; 99285; G0482; J1165; J7030; J7050

== ENCOUNTER 2017-08-30 00:20 | Emergency (ER) | payer MEDICAID ==
[~2017-08-30] VITALS: Ht 167.6 cm; Wt 73.0 kg
[2017-08-30 00:29] VITALS: BP 138/68
== END 2017-08-30 02:02 | disposition left against medical advice (07) ==
LOC: ER 00:20
DX: R53.1 Weakness (principal); Z53.21 Procedure and treatment not carried out due to patient leaving prior to being seen by health care provider

== ENCOUNTER 2017-08-30 05:35 | Emergency (ER) | payer MEDICAID ==
[~2017-08-30] VITALS: Ht 162.6 cm; Wt 69.0 kg
[2017-08-30] MEDS ORDERED: SODIUM CHLORIDE 0.9% 1,000 ML IV ONE (08:19)
[2017-08-30] MEDS ORDERED: LORAZEPAM 2MG/ML CPJ IV STA (08:19)
[2017-08-30 08:52] LABS: EOSINOPHILS % 3.2 % (0.0-5.0); HEMATOCRIT. 31.8 % (36.0-48.0); HEMOGLOBIN. 10.7 g/dL (12.0-16.0); LYMPHOCYTES % 37.4 % (20.0-50.0); MEAN CORPUSCULAR HEMOGLOBIN 28.1 pg (28.0-32.0); MEAN CORPUSCULAR VOLUME 83.8 fL (81.0-99.0); MEAN PLATELET VOLUME 7.8 fl (7.4-10.4); MONOCYTES % 10.7 % (2.0-8.0); NEUTROPHILS % 47.7 % (40.0-76.0); PLATELET 189 x1000/uL (130-400); RED CELL DISTRIBUTION WIDTH 18.1 % (11.6-14.6)
[2017-08-30 08:56] LABS: CLARITY URINE CLEAR (CLEAR); COLOR URINE YELLOW (YELLOW); KETONES URINE NEGATIVE (NEGATIVE); LEUKOCYTE ESTERASE URINE NEGATIVE (NEGATIVE); NITRITE URINE NEGATIVE (NEGATIVE); OCCULT BLOOD URINE NEGATIVE (NEGATIVE); PROTEIN URINE NEGATIVE (NEGATIVE); SPECIFIC GRAVITY URINE 1.013 (1.005-1.030); UROBILINOGEN URINE 0.2 E.U./dL (0.2-1.0)
[2017-08-30 08:57] LABS: CHLORIDE 108 mEq/L (98-107)
[2017-08-30 09:01] LABS: ETHANOL BLOOD < 10 mg/dL
[2017-08-30 09:20] LABS: *BARBITURATES SCREEN URINE NEGATIVE (NEGATIVE)
[2017-08-30 09:21] LABS: *AMPHETAMINES SCREEN URINE NEGATIVE (NEGATIVE); *BENZODIAZEPINES SCREEN URINE NEGATIVE (NEGATIVE); *COCAINE SCREEN URINE NEGATIVE (NEGATIVE); METHADONE URINE SCREEN NEGATIVE (NEGATIVE); OPIATES URINE SCREEN NEGATIVE (NEGATIVE); PHENCYCLIDINE URINE SCREEN NEGATIVE (NEGATIVE)
[2017-08-30 09:22] LABS: CANNABINOID URINE SCREEN NEGATIVE (NEGATIVE)
[2017-08-30] MEDS ORDERED: PHENYTOIN SODIUM EXTENDED 100MG CAPSULE PO ONE (09:45)
[2017-08-30] MEDS ORDERED: LORAZEPAM 1MG TABLET PO ONE (10:45)
[2017-08-30] MEDS ORDERED: IBUPROFEN 600MG TABLET PO ONE (11:00)
[2017-08-30 15:08] VITALS: BP 18/87
== END 2017-08-30 15:17 | disposition home or self-care (01) ==
LOC: ER 06:13
DX: R56.9 Unspecified convulsions (principal); R45.851 Suicidal ideations; F20.9 Schizophrenia, unspecified; K21.9 Gastro-esophageal reflux disease without esophagitis; F14.10 Cocaine abuse, uncomplicated; Z79.82 Long term (current) use of aspirin; Z85.42 Personal history of malignant neoplasm of other parts of uterus; Z98.890 Other specified postprocedural states
CPT/HCPCS: 36415; 80053; 80185; 80305; 80307; 80329; 81003; 81025; 85025; 99284; G0482; J7030; Z7610

== ENCOUNTER 2017-10-15 21:28 | Emergency (ER) | payer MEDICAID ==
[~2017-10-15] VITALS: Ht 170.2 cm; Wt 61.0 kg
[~2017-10-15 21:28] MED LIST changes: -HYDR-519 PO; +LACT10SO7 PO; -NITR0.4T49 SL
[2017-10-15 22:45] VITALS: BP 128/80
[2017-10-15 23:08] LABS: BASOPHILS % 0.9 % (0.0-2.0); EOSINOPHILS % 3.1 % (0.0-5.0); HEMATOCRIT. 31.5 % (36.0-48.0); HEMOGLOBIN. 10.5 g/dL (12.0-16.0); LYMPHOCYTES % 55.9 % (20.0-50.0); MEAN CORPUSCULAR HEMOGLOBIN 27.6 pg (28.0-32.0); MEAN CORPUSCULAR VOLUME 83.1 fL (81.0-99.0); MEAN PLATELET VOLUME 7.5 fl (7.4-10.4); NEUTROPHILS % 31.1 % (40.0-76.0); PLATELET 229 x1000/uL (130-400); RED BLOOD CELL COUNT 3.79 mill/uL (4.2-5.4)
[2017-10-15 23:13] LABS: CHLORIDE 104 mEq/L (98-107)
[2017-10-15 23:17] LABS: ETHANOL BLOOD < 10 mg/dL
[2017-10-15 23:18] LABS: INR 1.1; PARTIAL THROMBOPLASTIN TIME 25.1 sec (23.4-31.0); PROTHROMBIN TIME 11.2 sec (9.4-11.6)
== END 2017-10-16 05:27 | disposition home or self-care (01) ==
LOC: ER 21:28
DX: R07.9 Chest pain, unspecified (principal); D64.9 Anemia, unspecified; I50.9 Heart failure, unspecified; I10 Essential (primary) hypertension; R56.9 Unspecified convulsions; E11.8 Type 2 diabetes mellitus with unspecified complications; Z98.51 Tubal ligation status
CPT/HCPCS: 36415; 71045; 80053; 83690; 84484; 85025; 85610; 85730; 93005; 99285; G0482; Z7610

== ENCOUNTER 2018-04-07 06:03 | Inpatient (IN) | payer MEDICAID ==
[~2018-04-07] VITALS: Ht 160 cm; Wt 79.0 kg
[2018-04-07] MEDS ORDERED: ONDANSETRON HCL 4MG/2ML INJ IV STA (06:46)
[2018-04-07] MEDS ORDERED: MORPHINE SULFATE 4 MG/ML CPJ (NOT FOR IM USE) IV STA (06:46)
[2018-04-07] MEDS ORDERED: ASPIRIN 81MG TABLET PO ONE (07:00)
[2018-04-07 09:41] LABS: BASOPHILS % 0.6 % (0.0-2.0); EOSINOPHILS % 1.7 % (0.0-5.0); HEMATOCRIT. 40.5 % (36.0-48.0); HEMOGLOBIN. 13.3 g/dL (12.0-16.0); LYMPHOCYTES % 48.9 % (20.0-50.0); MEAN CORPUSCULAR VOLUME 85.1 fL (81.0-99.0); MEAN PLATELET VOLUME 7.8 fl (7.4-10.4); MONOCYTES % 8.3 % (2.0-8.0); NEUTROPHILS % 40.5 % (40.0-76.0); PLATELET 242 x1000/uL (130-400); RED BLOOD CELL COUNT 4.75 mill/uL (4.2-5.4); RED CELL DISTRIBUTION WIDTH 18.8 % (11.6-14.6)
[2018-04-07 09:45] LABS: CHLORIDE 102 mEq/L (98-107)
[2018-04-07] MEDS ORDERED: ONDANSETRON HCL 4MG/2ML INJ IV PRN (14:45)
[2018-04-07] MEDS ORDERED: LORAZEPAM 2MG/ML CPJ IV PRN (14:45)
[2018-04-07] MEDS ORDERED: DIPHENHYDRAMINE 50MG/ML VIAL IV PRN (14:45)
[2018-04-07] MEDS ORDERED: ACETAMINOPHEN 325MG TABLET PO PRN (14:45)
[2018-04-07] MEDS: PHENYTOIN SODIUM EXTENDED 100MG CAPSULE PO SCH (17:00)
[2018-04-07] MEDS ORDERED: QUETIAPINE FUMARATE 100MG TABLET PO SCH (17:00)
[2018-04-07 18:10] VITALS: BP 133/84
[2018-04-07] MEDS ORDERED: DEXT 5%/0.45% NACL 1000ML 1,000 ML IV SCH (18:30)
[2018-04-07] MEDS ORDERED: LORA-250 PO (18:52)
[2018-04-07] MEDS ORDERED: HYDR-4001 PO (18:54)
[2018-04-07] MEDS ORDERED: INFLUENZA VIRUS VACCINE(AFLURIA) 0.5ML SYR IM ONE (19:45)
[2018-04-07 20:00] VITALS: BP 120/78
[2018-04-07] MEDS ORDERED: ENOXAPARIN 40MG/0.4ML SYR SUBCUT SCH (20:00)
[2018-04-07 23:53] LABS: CREATINE KINASE MB FRACTION 7.1 ng/mL (0.5-3.6)
[2018-04-07 23:58] LABS: CREATINE KINASE 824 IU/L (26-192)
[2018-04-08] VITALS: BP 93/46
[2018-04-08] MEDS: IPRATROPIUM/ALBUTEROL 0.5-3(2.5)MG/3ML NEB HHN SCH ×4 (01:47→12:30)
[2018-04-08 04:00] VITALS: BP 114/54
[2018-04-08 07:42] LABS: COLOR URINE YELLOW (YELLOW); KETONES URINE NEGATIVE (NEGATIVE); LEUKOCYTE ESTERASE URINE TRACE (NEGATIVE); NITRITE URINE NEGATIVE (NEGATIVE); OCCULT BLOOD URINE NEGATIVE (NEGATIVE); PH URINE 6.5 (4.5-8.0); PROTEIN URINE NEGATIVE (NEGATIVE); SPECIFIC GRAVITY URINE 1.008 (1.005-1.030)
[2018-04-08 08:00] VITALS: BP 122/50
[2018-04-08 08:39] LABS: CLARITY URINE CLEAR (CLEAR)
[2018-04-08 09:29] LABS: *AMPHETAMINES SCREEN URINE NEGATIVE (NEGATIVE); *BARBITURATES SCREEN URINE NEGATIVE (NEGATIVE); *BENZODIAZEPINES SCREEN URINE NEGATIVE (NEGATIVE); *COCAINE SCREEN URINE PRESUMTIVE POSITIVE (NEGATIVE); METHADONE URINE SCREEN NEGATIVE (NEGATIVE); OPIATES URINE SCREEN NEGATIVE (NEGATIVE)
[2018-04-08 09:30] LABS: CANNABINOID URINE SCREEN NEGATIVE (NEGATIVE); PHENCYCLIDINE URINE SCREEN NEGATIVE (NEGATIVE)
[2018-04-08] MEDS: PHENYTOIN SODIUM EXTENDED 100MG CAPSULE PO SCH ×2 (09:48→13:09)
[2018-04-08 12:30] VITALS: BP 135/69
== END 2018-04-08 13:50 | disposition home or self-care (01) | DRG 203 ==
LOC: ER 06:03 → 8WST 13:04 → ENRESERV 16:59
PROVIDERS: ADMIT Internal Medicine Nephrology; ATTEND Internal Medicine Nephrology
DX: M94.0 Chondrocostal junction syndrome [Tietze] (principal); I11.0 Hypertensive heart disease with heart failure; I50.9 Heart failure, unspecified; I25.2 Old myocardial infarction; R10.9 Unspecified abdominal pain; E11.9 Type 2 diabetes mellitus without complications; J45.909 Unspecified asthma, uncomplicated; F14.10 Cocaine abuse, uncomplicated; F17.200 Nicotine dependence, unspecified, uncomplicated; Z91.19 Patient's noncompliance with other medical treatment and regimen; Z98.891 History of uterine scar from previous surgery; Z79.82 Long term (current) use of aspirin; Z79.899 Other long term (current) drug therapy; K29.70 Gastritis, unspecified, without bleeding
CPT/HCPCS: 36415; 71045; 80185; 80305; 82550; 82553; 83880; 84484; 85379; 90686; 93005; 94640; 99285; C1893; J1650; J7620

== ENCOUNTER 2018-05-10 14:09 | Inpatient (IN) | payer MEDICAID ==
[~2018-05-10] VITALS: Ht 162.6 cm; Wt 69.9 kg
[~2018-05-10 14:09] MED LIST changes: +HYDR-4001 PO; +LORA-250 PO
[2018-05-10] MEDS ORDERED: COUMADIN (14:32)
[2018-05-10] MEDS ORDERED: XARELTO (14:32)
[2018-05-10 17:23] LABS: BASOPHILS % 0.8 % (0.0-2.0); EOSINOPHILS % 2.2 % (0.0-5.0); HEMATOCRIT. 38.5 % (36.0-48.0); HEMOGLOBIN. 12.3 g/dL (12.0-16.0); LYMPHOCYTES % 46.2 % (20.0-50.0); MEAN CORPUSCULAR HEMOGLOBIN 27.1 pg (28.0-32.0); MEAN CORPUSCULAR VOLUME 84.6 fL (81.0-99.0); MEAN PLATELET VOLUME 8.1 fl (7.4-10.4); MONOCYTES % 8.2 % (2.0-8.0); NEUTROPHILS % 42.6 % (40.0-76.0); PLATELET 290 x1000/uL (130-400); RED BLOOD CELL COUNT 4.55 mill/uL (4.2-5.4)
[2018-05-10 17:29] LABS: CHLORIDE 102 mEq/L (98-107)
[2018-05-10 17:36] LABS: ETHANOL BLOOD < 10 mg/dL; INR 1.1; PARTIAL THROMBOPLASTIN TIME 21.5 sec (23.4-31.0)
[2018-05-10 17:56] LABS: CLARITY URINE CLEAR (CLEAR); COLOR URINE DARK YELLOW (YELLOW); KETONES URINE 1+ (NEGATIVE); LEUKOCYTE ESTERASE URINE NEGATIVE (NEGATIVE); NITRITE URINE NEGATIVE (NEGATIVE); OCCULT BLOOD URINE NEGATIVE (NEGATIVE); PH URINE 5.5 (4.5-8.0); PROTEIN URINE 1+ (NEGATIVE); SPECIFIC GRAVITY URINE 1.043 (1.005-1.030)
[2018-05-10 18:13] LABS: OPIATES URINE SCREEN NEGATIVE (NEGATIVE)
[2018-05-10 18:14] LABS: *AMPHETAMINES SCREEN URINE PRESUMTIVE POSITIVE (NEGATIVE); *BARBITURATES SCREEN URINE NEGATIVE (NEGATIVE); *BENZODIAZEPINES SCREEN URINE NEGATIVE (NEGATIVE); *COCAINE SCREEN URINE PRESUMTIVE POSITIVE (NEGATIVE); CANNABINOID URINE SCREEN NEGATIVE (NEGATIVE); METHADONE URINE SCREEN NEGATIVE (NEGATIVE); PHENCYCLIDINE URINE SCREEN NEGATIVE (NEGATIVE)
[2018-05-10] MEDS ORDERED: ASPIRIN 325MG TABLET PO ONE (19:30)
[2018-05-10] MEDS ORDERED: PHENYTOIN SODIUM EXTENDED 100MG CAPSULE PO NR (20:15)
[2018-05-10 22:05] VITALS: BP 105/79
[2018-05-10 22:30] VITALS: BP 105/79
[2018-05-10] MEDS ORDERED: DIPHENHYDRAMINE 50MG/ML VIAL IV PRN (23:15)
[2018-05-10] MEDS ORDERED: DEXTROSE 50% WATER 50ML SYRINGE IV PRN (23:15)
[2018-05-10] MEDS ORDERED: CLONIDINE 0.1MG TABLET PO PRN (23:15)
[2018-05-10] MEDS ORDERED: ACETAMINOPHEN 325MG TABLET PO PRN (23:15)
[2018-05-11] VITALS: BP 108/75
[2018-05-11 04:00] VITALS: BP 133/64
[2018-05-11] MEDS: KETOROLAC 15MG/ML VIAL IV PRN ×2 (05:29→16:56)
[2018-05-11] MEDS: BLOOD SUGAR DIAGNOSTIC STRIP TEST SCH ×4 (06:27→21:27)
[2018-05-11] MEDS: PHENYTOIN SODIUM EXTENDED 100MG CAPSULE PO SCH ×3 (06:33→21:28)
[2018-05-11] MEDS: SODIUM CHLORIDE 0.9% INJ 3ML FLUSH IVF SCH ×3 (06:34→21:28)
[2018-05-11] MEDS: INSULIN LISPRO 100 UNITS/ML SUBCUT SCH ×4 (07:15→21:00)
[2018-05-11 08:00] VITALS: BP 113/73
[2018-05-11] MEDS: ONDANSETRON HCL 4MG/2ML INJ IV PRN ×2 (10:02→17:53)
[2018-05-11] MEDS: QUETIAPINE FUMARATE 100MG TABLET PO SCH (10:02)
[2018-05-11 12:00] VITALS: BP 102/67
[2018-05-11] MEDS: IPRATROPIUM/ALBUTEROL 0.5-3(2.5)MG/3ML NEB HHN PRN ×2 (13:12→17:19)
[2018-05-11] MEDS ORDERED: POTASSIUM CHLORIDE 20MEQ TABLET SR PO SCH (15:30)
[2018-05-11 16:00] VITALS: BP 102/61
[2018-05-11] MEDS ORDERED: MAGNESIUM 1 G PREMIX 100 ML IV NR (16:30)
[2018-05-11 20:00] VITALS: BP 115/69
[2018-05-11] MEDS ORDERED: POTASSIUM CHLORIDE 20MEQ TABLET SR PO NR ×2 (20:30)
[2018-05-12] VITALS: BP 112/65
[2018-05-12] MEDS: KETOROLAC 15MG/ML VIAL IV PRN ×2 (00:03→08:42)
[2018-05-12] MEDS: ONDANSETRON HCL 4MG/2ML INJ IV PRN ×2 (00:03→04:58)
[2018-05-12] MEDS: IPRATROPIUM/ALBUTEROL 0.5-3(2.5)MG/3ML NEB HHN PRN ×3 (01:05→15:05)
[2018-05-12 04:00] VITALS: BP 112/81
[2018-05-12] MEDS: SODIUM CHLORIDE 0.9% INJ 3ML FLUSH IVF SCH ×2 (06:16→13:25)
[2018-05-12] MEDS: BLOOD SUGAR DIAGNOSTIC STRIP TEST SCH ×2 (06:16→11:59)
[2018-05-12] MEDS: PHENYTOIN SODIUM EXTENDED 100MG CAPSULE PO SCH ×2 (06:16→13:24)
[2018-05-12] MEDS: INSULIN LISPRO 100 UNITS/ML SUBCUT SCH ×2 (06:21→12:28)
[2018-05-12 07:26] LABS: CHLORIDE 104 mEq/L (98-107)
[2018-05-12 07:34] LABS: PHOSPHORUS 3.6 mg/dL (2.5-4.9)
[2018-05-12 08:00] VITALS: BP 142/77
[2018-05-12] MEDS: QUETIAPINE FUMARATE 100MG TABLET PO SCH (08:41)
[2018-05-12 12:00] VITALS: BP 118/75
[2018-05-12] MEDS ORDERED: MAGNESIUM 2 G PREMIX 50 ML IV SCH (13:00)
[2018-05-12 16:04] VITALS: BP 118/75
== END 2018-05-12 16:30 | disposition home or self-care (01) | DRG 53 ==
LOC: ER 14:09 → 5WST 20:14 → EDBEDREQTM 20:36 → EDBEDREQ 20:36 → ENRESERV 21:19
PROVIDERS: ADMIT Internal Medicine; ATTEND Internal Medicine
DX: G40.909 Epilepsy, unspecified, not intractable, without status epilepticus (principal); G92 Toxic encephalopathy; E11.9 Type 2 diabetes mellitus without complications; E87.6 Hypokalemia; F14.10 Cocaine abuse, uncomplicated; F17.200 Nicotine dependence, unspecified, uncomplicated; I11.0 Hypertensive heart disease with heart failure; F15.10 Other stimulant abuse, uncomplicated; I50.9 Heart failure, unspecified; J44.9 Chronic obstructive pulmonary disease, unspecified; F32.9 Major depressive disorder, single episode, unspecified; Z79.1 Long term (current) use of non-steroidal anti-inflammatories (NSAID); Z79.899 Other long term (current) drug therapy; Z91.19 Patient's noncompliance with other medical treatment and regimen; Z79.82 Long term (current) use of aspirin; Z71.6 Tobacco abuse counseling; Z98.891 History of uterine scar from previous surgery; Z98.51 Tubal ligation status
CPT/HCPCS: 36415; 71045; 80048; 80185; 80305; 82962; 83036; 83735; 83880; 84100; 84484; 93005; 93970; 94640; 99285; G0482; J1815; J1885; J2405; J3475; J7050; J7620

== ENCOUNTER 2018-05-30 16:20 | Emergency (ER) | payer MEDICAID ==
[~2018-05-30] VITALS: Ht 165.1 cm; Wt 70.0 kg
[~2018-05-30 16:20] MED LIST changes: +COUMADIN; +XARELTO
[2018-05-30] MEDS ORDERED: QUETIAPINE FUMARATE 100MG TABLET PO STA (18:23)
[2018-05-30 19:24] LABS: BASOPHILS % 0.5 % (0.0-2.0); EOSINOPHILS % 2.6 % (0.0-5.0); HEMATOCRIT. 36.1 % (36.0-48.0); HEMOGLOBIN. 11.7 g/dL (12.0-16.0); LYMPHOCYTES % 44.7 % (20.0-50.0); MEAN CORPUSCULAR HEMOGLOBIN 27.7 pg (28.0-32.0); MEAN CORPUSCULAR VOLUME 85.4 fL (81.0-99.0); MEAN PLATELET VOLUME 7.9 fl (7.4-10.4); MONOCYTES % 8.8 % (2.0-8.0); NEUTROPHILS % 43.4 % (40.0-76.0); PLATELET 236 x1000/uL (130-400); RED BLOOD CELL COUNT 4.23 mill/uL (4.2-5.4); RED CELL DISTRIBUTION WIDTH 18.6 % (11.6-14.6)
[2018-05-30 19:27] LABS: CHLORIDE 104 mEq/L (98-107)
[2018-05-30 19:33] LABS: ETHANOL BLOOD < 10 mg/dL
[2018-05-30 20:46] LABS: CLARITY URINE CLEAR (CLEAR); COLOR URINE YELLOW (YELLOW); KETONES URINE TRACE (NEGATIVE); LEUKOCYTE ESTERASE URINE NEGATIVE (NEGATIVE); NITRITE URINE NEGATIVE (NEGATIVE); OCCULT BLOOD URINE NEGATIVE (NEGATIVE); PH URINE 5.5 (4.5-8.0); PROTEIN URINE NEGATIVE (NEGATIVE); SPECIFIC GRAVITY URINE 1.045 (1.005-1.030)
[2018-05-30 20:56] LABS: *AMPHETAMINES SCREEN URINE NEGATIVE (NEGATIVE); *BARBITURATES SCREEN URINE NEGATIVE (NEGATIVE); CANNABINOID URINE SCREEN NEGATIVE (NEGATIVE); METHADONE URINE SCREEN NEGATIVE (NEGATIVE); OPIATES URINE SCREEN NEGATIVE (NEGATIVE); PHENCYCLIDINE URINE SCREEN NEGATIVE (NEGATIVE)
[2018-05-30 20:57] LABS: *BENZODIAZEPINES SCREEN URINE NEGATIVE (NEGATIVE); *COCAINE SCREEN URINE PRESUMTIVE POSITIVE (NEGATIVE)
[2018-05-31 11:52] VITALS: BP 129/68
== END 2018-05-31 11:57 | disposition home or self-care (01) ==
LOC: ER 16:20
DX: R45.851 Suicidal ideations (principal); I11.0 Hypertensive heart disease with heart failure; I50.9 Heart failure, unspecified; F31.9 Bipolar disorder, unspecified; E11.9 Type 2 diabetes mellitus without complications; F20.9 Schizophrenia, unspecified; F14.10 Cocaine abuse, uncomplicated; Z98.890 Other specified postprocedural states; Z79.82 Long term (current) use of aspirin; Z79.899 Other long term (current) drug therapy
CPT/HCPCS: 36415; 80053; 80185; 80305; 80307; 80329; 81003; 85025; 99284; G0482; Z7610

== ENCOUNTER 2018-06-11 18:11 | Emergency (ER) | payer MEDICAID | END 2018-06-11 18:39 | disposition left against medical advice (07) | LOC: ER 18:11 | DX: R07.9 Chest pain, unspecified (principal); Z53.21 Procedure and treatment not carried out due to patient leaving prior to being seen by health care provider ==

== ENCOUNTER 2018-06-12 03:18 | Emergency (ER) | payer MEDICAID ==
[~2018-06-12] VITALS: Ht 162.6 cm; Wt 65.0 kg
== END 2018-06-12 11:25 | disposition left against medical advice (07) ==
LOC: ER 03:18
DX: Z53.21 Procedure and treatment not carried out due to patient leaving prior to being seen by health care provider (principal); R07.89 Other chest pain
CPT/HCPCS: 93005

== ENCOUNTER 2018-08-07 19:12 | Inpatient (IN) | payer MEDICAID ==
[~2018-08-07] VITALS: Ht 162.6 cm; Wt 74.0 kg
[2018-08-07] MEDS ORDERED: NITROGLYCERIN 0.4MG TABLET SL SL PRN (20:45)
[2018-08-07] MEDS ORDERED: SODIUM CHLORIDE 0.9% 1,000 ML IV ONE (20:45)
[2018-08-07] MEDS ORDERED: ASPIRIN 81MG TABLET PO ONE (20:45)
[2018-08-07 21:10] LABS: BASOPHILS % 1.2 % (0.0-2.0); EOSINOPHILS % 1.6 % (0.0-5.0); HEMATOCRIT. 37.3 % (36.0-48.0); HEMOGLOBIN. 12.4 g/dL (12.0-16.0); LYMPHOCYTES % 33.6 % (20.0-50.0); MEAN CORPUSCULAR HEMOGLOBIN 27.9 pg (28.0-32.0); MEAN CORPUSCULAR VOLUME 84.1 fL (81.0-99.0); MEAN PLATELET VOLUME 7.8 fl (7.4-10.4); MONOCYTES % 6.7 % (2.0-8.0); NEUTROPHILS % 56.9 % (40.0-76.0); PLATELET 296 x1000/uL (130-400); RED BLOOD CELL COUNT 4.44 mill/uL (4.2-5.4); RED CELL DISTRIBUTION WIDTH 18.4 % (11.6-14.6)
[2018-08-07 21:11] LABS: *AMPHETAMINES SCREEN URINE NEGATIVE (NEGATIVE); *BARBITURATES SCREEN URINE NEGATIVE (NEGATIVE); *BENZODIAZEPINES SCREEN URINE NEGATIVE (NEGATIVE); *COCAINE SCREEN URINE NEGATIVE (NEGATIVE); METHADONE URINE SCREEN NEGATIVE (NEGATIVE); OPIATES URINE SCREEN NEGATIVE (NEGATIVE); PHENCYCLIDINE URINE SCREEN NEGATIVE (NEGATIVE)
[2018-08-07 21:12] LABS: CANNABINOID URINE SCREEN NEGATIVE (NEGATIVE)
[2018-08-07 21:14] LABS: CHLORIDE 100 mEq/L (98-107)
[2018-08-07 21:18] LABS: ETHANOL BLOOD < 10 mg/dL
[2018-08-07 21:20] LABS: D-DIMER 0.48 mg/L FEU (<0.50); PARTIAL THROMBOPLASTIN TIME 21.3 sec (23.4-31.0); PROTHROMBIN TIME 9.8 sec (9.6-11.0)
[2018-08-08 03:03] VITALS: BP 136/80
[2018-08-08] MEDS ORDERED: FAMO-135 MT (04:25)
[2018-08-08] MEDS ORDERED: DIPHENHYDRAMINE 50MG/ML VIAL IV PRN (05:15)
[2018-08-08] MEDS ORDERED: MAGNESIUM/ALUMINUM HYDROXIDE/SIMETHICONE 30ML UDC PO PRN (05:15)
[2018-08-08] MEDS ORDERED: DOCUSATE SODIUM 100MG CAPSULE PO PRN (05:15)
[2018-08-08] MEDS ORDERED: MORPHINE SULFATE 4 MG/ML CPJ (NOT FOR IM USE) IV PRN (05:15)
[2018-08-08] MEDS ORDERED: ONDANSETRON HCL 4MG/2ML INJ IV PRN (05:15)
[2018-08-08] MEDS ORDERED: LORAZEPAM 2MG/ML CPJ IV PRN (05:15)
[2018-08-08] MEDS ORDERED: IPRATROPIUM/ALBUTEROL 0.5-3(2.5)MG/3ML NEB INH PRN (05:15)
[2018-08-08] MEDS ORDERED: CLONIDINE 0.1MG TABLET PO PRN (05:15)
[2018-08-08] MEDS ORDERED: NA PHOS,M-B/NA PHOS,DI-BA ENEMA 118ML PR PRN (05:15)
[2018-08-08] MEDS ORDERED: ACETAMINOPHEN 325MG TABLET PO PRN (05:15)
[2018-08-08] MEDS: PHENYTOIN SODIUM EXTENDED 100MG CAPSULE PO SCH ×3 (06:08→20:11)
[2018-08-08 07:30] LABS: CHLORIDE 103 mEq/L (98-107)
[2018-08-08 08:00] VITALS: BP 137/77
[2018-08-08] MEDS ORDERED: ENOXAPARIN 40MG/0.4ML SYR SUBCUT SCH (09:00)
[2018-08-08] MEDS: NICOTINE 14MG PATCH TD SCH (10:28)
[2018-08-08] MEDS: ASPIRIN 81MG EC TABLET PO SCH (10:28)
[2018-08-08 12:00] VITALS: BP 126/67
[2018-08-08] MEDS: IPRATROPIUM/ALBUTEROL 0.5-3(2.5)MG/3ML NEB HHN SCH ×2 (12:00→21:28)
[2018-08-08] MEDS: GUAIFENESIN 200MG/10ML SUGAR FREE UDC PO PRN ×2 (12:26→22:31)
[2018-08-08] MEDS: HYDROCODONE/ACETAMINOPHEN 5/325MG TABLET PO PRN ×2 (12:28→17:33)
[2018-08-08 15:32] LABS: CREATINE KINASE 163 IU/L (26-192)
[2018-08-08 15:35] LABS: CREATINE KINASE MB FRACTION 2.3 ng/mL (0.5-3.6)
[2018-08-08 16:08] VITALS: BP 127/79
[2018-08-08] MEDS ORDERED: QUETIAPINE FUMARATE 100MG TABLET PO SCH (17:00)
[2018-08-08] MEDS ORDERED: RIVAROXABAN 20 MG TABLET PO SCH (17:00)
[2018-08-08 20:00] VITALS: BP 115/64
[2018-08-08] MEDS: GUAIFENESIN 600MG ER TABLET PO SCH (20:11)
[2018-08-08] MEDS: FLUTICASONE PROPIONATE 50MCG/SPRAY BOTTLE BOTHNSTRLS SCH (20:11)
[2018-08-08 23:49] LABS: CREATINE KINASE MB FRACTION 1.8 ng/mL (0.5-3.6)
[2018-08-09] VITALS: BP 116/65
[2018-08-09] MEDS: HYDROCODONE/ACETAMINOPHEN 5/325MG TABLET PO PRN ×3 (00:19→10:33)
[2018-08-09 00:33] VITALS: BP 116/65
[2018-08-09] MEDS: IPRATROPIUM/ALBUTEROL 0.5-3(2.5)MG/3ML NEB HHN SCH ×4 (01:17→14:40)
[2018-08-09 04:00] VITALS: BP 112/69
[2018-08-09] MEDS: PHENYTOIN SODIUM EXTENDED 100MG CAPSULE PO SCH ×2 (04:21→13:43)
[2018-08-09 06:41] LABS: BASOPHILS % 0.7 % (0.0-2.0); EOSINOPHILS % 1.6 % (0.0-5.0); HEMATOCRIT. 36.2 % (36.0-48.0); HEMOGLOBIN. 12.2 g/dL (12.0-16.0); MEAN CORPUSCULAR VOLUME 83.1 fL (81.0-99.0); MEAN PLATELET VOLUME 7.8 fl (7.4-10.4); NEUTROPHILS % 42.7 % (40.0-76.0); PLATELET 253 x1000/uL (130-400); RED BLOOD CELL COUNT 4.36 mill/uL (4.2-5.4); RED CELL DISTRIBUTION WIDTH 18.4 % (11.6-14.6)
[2018-08-09] MEDS ORDERED: REGADENOSON 0.4 MG/5 ML IV ONE ×2 (06:45→08:27)
[2018-08-09 08:00] VITALS: BP 109/68
[2018-08-09 08:08] LABS: CHLORIDE 98 mEq/L (98-107)
[2018-08-09 08:21] LABS: CREATINE KINASE 112 IU/L (26-192); LDL CHOLESTEROL 64 mg/dL (5-100)
[2018-08-09 08:22] LABS: HDL CHOLESTEROL 61 mg/dL (40-59)
[2018-08-09 08:24] LABS: CREATINE KINASE MB FRACTION 1.5 ng/mL (0.5-3.6); T4 FREE 0.85 ng/dL (0.76-1.46)
[2018-08-09] MEDS ORDERED: SODIUM CHLORIDE 0.45% 1,000 ML IV SCH (08:45)
[2018-08-09] MEDS: ASPIRIN 81MG EC TABLET PO SCH (10:04)
[2018-08-09] MEDS: GUAIFENESIN 600MG ER TABLET PO SCH (10:04)
[2018-08-09] MEDS: NICOTINE 14MG PATCH TD SCH (10:05)
[2018-08-09] MEDS: FLUTICASONE PROPIONATE 50MCG/SPRAY BOTTLE BOTHNSTRLS SCH (10:10)
[2018-08-09] MEDS: GUAIFENESIN 200MG/10ML SUGAR FREE UDC PO PRN ×2 (10:29→15:13)
[2018-08-09 12:00] VITALS: BP 139/77
[2018-08-09 14:35] VITALS: BP 139/77
== END 2018-08-09 15:40 | disposition home or self-care (01) | DRG 133 ==
LOC: ER 19:12 → 8WST 08-08 00:24 → EDBEDREQTM 08-08 00:26 → EDBEDREQ 08-08 00:26 → EDBEDREQDT 08-08 00:26 → ENRESERV 08-08 02:24
PROVIDERS: ADMIT Internal Medicine; ATTEND Internal Medicine
DX: J96.00 Acute respiratory failure, unspecified whether with hypoxia or hypercapnia (principal); J18.9 Pneumonia, unspecified organism; I11.0 Hypertensive heart disease with heart failure; I50.32 Chronic diastolic (congestive) heart failure; J44.0 Chronic obstructive pulmonary disease with (acute) lower respiratory infection; M94.0 Chondrocostal junction syndrome [Tietze]; E11.9 Type 2 diabetes mellitus without complications; E78.5 Hyperlipidemia, unspecified; F14.10 Cocaine abuse, uncomplicated; F99 Mental disorder, not otherwise specified; F17.210 Nicotine dependence, cigarettes, uncomplicated; G40.909 Epilepsy, unspecified, not intractable, without status epilepticus; G89.29 Other chronic pain; I25.10 Atherosclerotic heart disease of native coronary artery without angina pectoris; K21.9 Gastro-esophageal reflux disease without esophagitis; M48.00 Spinal stenosis, site unspecified; Z86.718 Personal history of other venous thrombosis and embolism; Z86.73 Personal history of transient ischemic attack (TIA), and cerebral infarction without residual deficits; Z98.891 History of uterine scar from previous surgery; Z79.82 Long term (current) use of aspirin; Z79.899 Other long term (current) drug therapy; Z79.1 Long term (current) use of non-steroidal anti-inflammatories (NSAID)
CPT/HCPCS: 36415; 71045; 71275; 78452; 80048; 80061; 80185; 80305; 80320; 82550; 82553; 83036; 83880; 84439; 84443; 84484; 85379; 93005; 93017; 93306; 93970; 99285; A9500; J2785; J7030; J7620; G0480

== ENCOUNTER 2018-09-13 17:14 | Emergency (ER) | payer MEDICAID ==
[~2018-09-13] VITALS: Ht 160 cm; Wt 74.0 kg
[~2018-09-13 17:14] MED LIST changes: -COUMADIN; +FAMO-135 MT; -XARELTO
[2018-09-13] MEDS ORDERED: ASPIRIN 81MG TABLET PO ONE (18:15)
[2018-09-13] MEDS ORDERED: HYDROCODONE/ACETAMINOPHEN 10/325MG TABLET PO ONE (18:15)
[2018-09-13 20:29] LABS: CHLORIDE 108 mEq/L (98-107)
[2018-09-13 20:32] LABS: BASOPHILS % 0.6 % (0.0-2.0); EOSINOPHILS % 1.8 % (0.0-5.0); HEMATOCRIT. 36.4 % (36.0-48.0); HEMOGLOBIN. 11.8 g/dL (12.0-16.0); LYMPHOCYTES % 51.1 % (20.0-50.0); MEAN CORPUSCULAR HEMOGLOBIN 27.1 pg (28.0-32.0); MEAN CORPUSCULAR VOLUME 83.7 fL (81.0-99.0); MEAN PLATELET VOLUME 7.6 fl (7.4-10.4); MONOCYTES % 10.3 % (2.0-8.0); NEUTROPHILS % 36.2 % (40.0-76.0); PLATELET 212 x1000/uL (130-400); PROTHROMBIN TIME 10.1 sec (9.6-11.0); RED BLOOD CELL COUNT 4.35 mill/uL (4.2-5.4); RED CELL DISTRIBUTION WIDTH 18.2 % (11.6-14.6)
[2018-09-13] MEDS ORDERED: IOHEXOL-350 100 ML BOTTLE ONE (22:27)
[2018-09-14 12:00] VITALS: BP 124/84
== END 2018-09-14 13:00 | disposition home or self-care (01) ==
LOC: ER 17:14
DX: R07.89 Other chest pain (principal); M54.2 Cervicalgia; R03.0 Elevated blood-pressure reading, without diagnosis of hypertension; F17.210 Nicotine dependence, cigarettes, uncomplicated; Z71.6 Tobacco abuse counseling; I25.2 Old myocardial infarction; Z59.0 Homelessness
CPT/HCPCS: 36415; 70498; 71045; 71275; 80053; 83880; 84484; 85025; 85610; 93005; 99284; 99406; Q9967

== ENCOUNTER 2018-10-23 01:30 | Emergency (ER) | payer MEDICAID ==
[~2018-10-23] VITALS: Ht 162.6 cm; Wt 64.0 kg
[~2018-10-23 01:30] MED LIST changes: -ASPI-1159 PO; +ASPI-1393 PO
[2018-10-23] MEDS ORDERED: ASPIRIN 81MG TABLET PO ONE (03:45)
[2018-10-23 04:08] LABS: BASOPHILS % 1.1 % (0.0-2.0); EOSINOPHILS % 2.8 % (0.0-5.0); HEMATOCRIT. 34.8 % (36.0-48.0); HEMOGLOBIN. 11.4 g/dL (12.0-16.0); LYMPHOCYTES % 44.3 % (20.0-50.0); MEAN PLATELET VOLUME 8.1 fl (7.4-10.4); MONOCYTES % 13.1 % (2.0-8.0); NEUTROPHILS % 38.7 % (40.0-76.0); PLATELET 190 x1000/uL (130-400); RED BLOOD CELL COUNT 4.09 mill/uL (4.2-5.4); RED CELL DISTRIBUTION WIDTH 19.5 % (11.6-14.6)
[2018-10-23 04:09] LABS: *AMPHETAMINES SCREEN URINE NEGATIVE (NEGATIVE); *BARBITURATES SCREEN URINE NEGATIVE (NEGATIVE); *BENZODIAZEPINES SCREEN URINE NEGATIVE (NEGATIVE); *COCAINE SCREEN URINE PRESUMTIVE POSITIVE (NEGATIVE); METHADONE URINE SCREEN NEGATIVE (NEGATIVE)
[2018-10-23 04:10] LABS: CANNABINOID URINE SCREEN NEGATIVE (NEGATIVE); OPIATES URINE SCREEN NEGATIVE (NEGATIVE); PHENCYCLIDINE URINE SCREEN NEGATIVE (NEGATIVE)
[2018-10-23 04:12] LABS: CHLORIDE 108 mEq/L (98-107)
[2018-10-23] MEDS ORDERED: SODIUM CHLORIDE 0.9% 250 ML IV ONE (04:19)
[2018-10-23] MEDS ORDERED: PHENYTOIN SODIUM 1,000 MG in SODIUM CHLORIDE 0.9% 100 ML IV ONE (05:00)
[2018-10-23 06:00] VITALS: BP 146/92
== END 2018-10-23 06:57 | disposition home or self-care (01) ==
LOC: ER 01:30
DX: R07.89 Other chest pain (principal); R89.2 Abnormal level of other drugs, medicaments and biological substances in specimens from other organs, systems and tissues; F14.10 Cocaine abuse, uncomplicated; I11.0 Hypertensive heart disease with heart failure; I50.9 Heart failure, unspecified; M79.605 Pain in left leg; M79.604 Pain in right leg
CPT/HCPCS: 36415; 71045; 80053; 80185; 80305; 83880; 84484; 85025; 93005; 93970; 96365; 99284; J1165; J7030; J7050

== ENCOUNTER 2018-10-23 08:59 | Emergency (ER) | payer MEDICAID ==
[~2018-10-23] VITALS: Ht 170.2 cm; Wt 71.0 kg
[2018-10-23 11:22] VITALS: BP 149/88
[2018-10-23] MEDS ORDERED: ALBUTEROL (0.5%) 2.5MG/0.5ML NEB HHN ONE (11:45)
[2018-10-23] MEDS ORDERED: PHENYTOIN SODIUM EXTENDED 100MG CAPSULE PO ONE (12:15)
== END 2018-10-23 12:31 | disposition left against medical advice (07) ==
LOC: ER 08:59
DX: J98.01 Acute bronchospasm (principal); J02.9 Acute pharyngitis, unspecified; G40.909 Epilepsy, unspecified, not intractable, without status epilepticus; Z86.718 Personal history of other venous thrombosis and embolism; Z79.01 Long term (current) use of anticoagulants
CPT/HCPCS: 36415; 83690; 84484; 87070; 87430; 93005; 94640; 99284; J7611

== ENCOUNTER 2018-10-28 06:02 | Emergency (ER) | payer MEDICAID ==
[~2018-10-28] VITALS: Ht 162.6 cm; Wt 70.0 kg
[2018-10-28] MEDS ORDERED: IBUPROFEN 600MG TABLET PO STA (06:53)
[2018-10-28] MEDS ORDERED: ONDANSETRON 4MG ODT PO STA (06:53)
[2018-10-28 07:22] LABS: CLARITY URINE CLOUDY (CLEAR); COLOR URINE YELLOW (YELLOW); KETONES URINE TRACE (NEGATIVE); LEUKOCYTE ESTERASE URINE NEGATIVE (NEGATIVE); NITRITE URINE NEGATIVE (NEGATIVE); OCCULT BLOOD URINE NEGATIVE (NEGATIVE); PH URINE 5.5 (4.5-8.0); PROTEIN URINE TRACE (NEGATIVE); SPECIFIC GRAVITY URINE 1.037 (1.005-1.030)
[2018-10-28] MEDS ORDERED: ALBUTEROL (0.083%) 2.5MG/3ML NEB HHN STA (07:26)
[2018-10-28] MEDS ORDERED: ACETAMINOPHEN 325MG TABLET PO ONE (07:30)
[2018-10-28 07:33] LABS: BASOPHILS % 0.8 % (0.0-2.0); EOSINOPHILS % 3.9 % (0.0-5.0); HEMATOCRIT. 36.5 % (36.0-48.0); LYMPHOCYTES % 47.6 % (20.0-50.0); MEAN CORPUSCULAR HEMOGLOBIN 28.3 pg (28.0-32.0); MEAN CORPUSCULAR VOLUME 85.9 fL (81.0-99.0); MEAN PLATELET VOLUME 8.6 fl (7.4-10.4); MONOCYTES % 9.9 % (2.0-8.0); NEUTROPHILS % 37.8 % (40.0-76.0); PLATELET 157 x1000/uL (130-400); RED BLOOD CELL COUNT 4.25 mill/uL (4.2-5.4); RED CELL DISTRIBUTION WIDTH 19.2 % (11.6-14.6)
[2018-10-28 07:37] LABS: CHLORIDE 110 mEq/L (98-107); PROTHROMBIN TIME 10.2 sec (9.6-11.0)
[2018-10-28] MEDS ORDERED: KETOROLAC 60MG/2ML VIAL IM ONE (07:45)
[2018-10-28] MEDS ORDERED: PHENYTOIN SODIUM EXTENDED 100MG CAPSULE PO ONE ×2 (08:30→08:45)
[2018-10-28 09:04] VITALS: BP 125/85
== END 2018-10-28 09:10 | disposition home or self-care (01) ==
LOC: ER 06:02
DX: R10.84 Generalized abdominal pain (principal); G89.29 Other chronic pain; M54.89 Other dorsalgia; F17.210 Nicotine dependence, cigarettes, uncomplicated; Z71.6 Tobacco abuse counseling
CPT/HCPCS: 36415; 80053; 80185; 81003; 83690; 85025; 85610; 94640; 96372; 99284; 99406; J1885; J7611; Q0162; Z7610

== ENCOUNTER 2018-11-07 04:41 | Emergency (ER) | payer MEDICAID ==
[~2018-11-07] VITALS: Ht 167.6 cm; Wt 63.0 kg
[2018-11-07 09:25] VITALS: BP 160/89
== END 2018-11-07 09:35 | disposition home or self-care (01) ==
LOC: ER 04:56
DX: R07.89 Other chest pain (principal); J45.909 Unspecified asthma, uncomplicated; I50.9 Heart failure, unspecified; Z87.19 Personal history of other diseases of the digestive system; Z98.890 Other specified postprocedural states; Z13.89 Encounter for screening for other disorder; Z98.51 Tubal ligation status; Z79.899 Other long term (current) drug therapy
CPT/HCPCS: 99283

== ENCOUNTER 2018-11-23 12:13 | Emergency (ER) | payer MEDICAID ==
[~2018-11-23] VITALS: Ht 162.6 cm; Wt 71.0 kg
[2018-11-23] MEDS ORDERED: SODIUM CHLORIDE 0.9% 1,000 ML IV ONE (15:47)
[2018-11-23 15:56] LABS: CLARITY URINE CLEAR (CLEAR); COLOR URINE YELLOW (YELLOW); KETONES URINE NEGATIVE (NEGATIVE); LEUKOCYTE ESTERASE URINE 2+ (NEGATIVE); NITRITE URINE NEGATIVE (NEGATIVE); OCCULT BLOOD URINE NEGATIVE (NEGATIVE); PH URINE 7.5 (4.5-8.0); PROTEIN URINE NEGATIVE (NEGATIVE); SPECIFIC GRAVITY URINE 1.013 (1.005-1.030)
[2018-11-23 16:33] LABS: *AMPHETAMINES SCREEN URINE NEGATIVE (NEGATIVE); *BARBITURATES SCREEN URINE NEGATIVE (NEGATIVE); *BENZODIAZEPINES SCREEN URINE NEGATIVE (NEGATIVE)
[2018-11-23 16:34] LABS: *COCAINE SCREEN URINE PRESUMTIVE POSITIVE (NEGATIVE); CANNABINOID URINE SCREEN NEGATIVE (NEGATIVE); METHADONE URINE SCREEN NEGATIVE (NEGATIVE); OPIATES URINE SCREEN NEGATIVE (NEGATIVE); PHENCYCLIDINE URINE SCREEN NEGATIVE (NEGATIVE)
[2018-11-23 17:51] LABS: BASOPHILS % 0.7 % (0.0-2.0); EOSINOPHILS % 2.5 % (0.0-5.0); HEMATOCRIT. 34.1 % (36.0-48.0); HEMOGLOBIN. 11.3 g/dL (12.0-16.0); MEAN CORPUSCULAR HEMOGLOBIN 28.6 pg (28.0-32.0); MEAN CORPUSCULAR VOLUME 85.8 fL (81.0-99.0); MEAN PLATELET VOLUME 8.1 fl (7.4-10.4); MONOCYTES % 8.9 % (2.0-8.0); NEUTROPHILS % 43.9 % (40.0-76.0); PLATELET 190 x1000/uL (130-400); RED BLOOD CELL COUNT 3.97 mill/uL (4.2-5.4); RED CELL DISTRIBUTION WIDTH 18.3 % (11.6-14.6)
[2018-11-23 17:56] LABS: CHLORIDE 106 mEq/L (98-107)
[2018-11-23 18:00] LABS: ETHANOL BLOOD < 10 mg/dL
[2018-11-23 18:04] LABS: CREATINE KINASE 387 IU/L (26-192)
[2018-11-23] MEDS ORDERED: PHENYTOIN SODIUM EXTENDED 100MG CAPSULE PO ONE (18:30)
[2018-11-23 21:37] VITALS: BP 121/75
== END 2018-11-23 21:40 | disposition home or self-care (01) ==
LOC: ER 12:13
DX: G40.909 Epilepsy, unspecified, not intractable, without status epilepticus (principal); F14.129 Cocaine abuse with intoxication, unspecified; N39.0 Urinary tract infection, site not specified; E87.8 Other disorders of electrolyte and fluid balance, not elsewhere classified; R73.9 Hyperglycemia, unspecified; D64.9 Anemia, unspecified; R03.0 Elevated blood-pressure reading, without diagnosis of hypertension; F17.210 Nicotine dependence, cigarettes, uncomplicated
CPT/HCPCS: 36415; 70450; 80053; 80185; 80305; 80320; 81003; 82550; 82962; 85025; 99284; J7030; G0480

== ENCOUNTER 2019-03-10 12:03 | Emergency (ER) | payer MEDICAID ==
[~2019-03-10] VITALS: Ht 162.6 cm; Wt 70.0 kg
[2019-03-10] MEDS ORDERED: FAMOTIDINE 20MG/2ML VIAL IV STA (13:23)
[2019-03-10] MEDS ORDERED: ONDANSETRON HCL 4MG/2ML INJ IV STA (13:23)
[2019-03-10 14:02] LABS: BASOPHILS % 0.5 % (0.0-2.0); EOSINOPHILS % 2.7 % (0.0-5.0); HEMATOCRIT. 36.6 % (36.0-48.0); HEMOGLOBIN. 12.1 g/dL (12.0-16.0); LYMPHOCYTES % 31.9 % (20.0-50.0); MEAN CORPUSCULAR HEMOGLOBIN 28.2 pg (28.0-32.0); MEAN CORPUSCULAR VOLUME 85.4 fL (81.0-99.0); MEAN PLATELET VOLUME 7.8 fl (7.4-10.4); MONOCYTES % 9.9 % (2.0-8.0); PLATELET 215 x1000/uL (130-400); RED BLOOD CELL COUNT 4.28 mill/uL (4.2-5.4); RED CELL DISTRIBUTION WIDTH 17.9 % (11.6-14.6)
[2019-03-10 14:10] LABS: CHLORIDE 104 mEq/L (98-107); PROTHROMBIN TIME 10.2 sec (9.6-11.0)
[2019-03-10 14:16] LABS: ETHANOL BLOOD < 10 mg/dL
[2019-03-10 16:32] VITALS: BP 112/70
== END 2019-03-10 17:06 | disposition home or self-care (01) ==
LOC: ER 12:03
DX: R10.13 Epigastric pain (principal); R11.10 Vomiting, unspecified; R19.7 Diarrhea, unspecified; F14.10 Cocaine abuse, uncomplicated; I10 Essential (primary) hypertension; F17.210 Nicotine dependence, cigarettes, uncomplicated; Z71.6 Tobacco abuse counseling
CPT/HCPCS: 36415; 71045; 80053; 80320; 83690; 83880; 85025; 85610; 93005; 96374; 96375; 99284; 99406; J2405; J3490; G0480

== ENCOUNTER 2019-03-10 19:09 | Emergency (ER) | payer MEDICAID ==
[~2019-03-10] VITALS: Ht 162.6 cm; Wt 65.0 kg
[2019-03-11 02:08] LABS: BASOPHILS % 0.6 % (0.0-2.0); EOSINOPHILS % 2.4 % (0.0-5.0); HEMATOCRIT. 37.7 % (36.0-48.0); HEMOGLOBIN. 12.1 g/dL (12.0-16.0); LYMPHOCYTES % 52.5 % (20.0-50.0); MEAN CORPUSCULAR HEMOGLOBIN 28.1 pg (28.0-32.0); MEAN CORPUSCULAR VOLUME 87.5 fL (81.0-99.0); MEAN PLATELET VOLUME 8.1 fl (7.4-10.4); MONOCYTES % 13.1 % (2.0-8.0); NEUTROPHILS % 31.4 % (40.0-76.0); PLATELET 180 x1000/uL (130-400); RED BLOOD CELL COUNT 4.31 mill/uL (4.2-5.4); RED CELL DISTRIBUTION WIDTH 18.2 % (11.6-14.6)
[2019-03-11 02:13] LABS: CHLORIDE 105 mEq/L (98-107)
[2019-03-11 02:19] LABS: ETHANOL BLOOD < 10 mg/dL
[2019-03-11 08:03] LABS: CLARITY URINE CLEAR (CLEAR); COLOR URINE YELLOW (YELLOW); KETONES URINE NEGATIVE (NEGATIVE); LEUKOCYTE ESTERASE URINE NEGATIVE (NEGATIVE); NITRITE URINE NEGATIVE (NEGATIVE); OCCULT BLOOD URINE NEGATIVE (NEGATIVE); PROTEIN URINE NEGATIVE (NEGATIVE); SPECIFIC GRAVITY URINE 1.015 (1.005-1.030); UROBILINOGEN URINE 0.2 E.U./dL (0.2-1.0)
[2019-03-11 08:07] LABS: *AMPHETAMINES SCREEN URINE NEGATIVE (NEGATIVE); *BARBITURATES SCREEN URINE NEGATIVE (NEGATIVE)
[2019-03-11 08:08] LABS: *BENZODIAZEPINES SCREEN URINE NEGATIVE (NEGATIVE); *COCAINE SCREEN URINE PRESUMTIVE POSITIVE (NEGATIVE); CANNABINOID URINE SCREEN NEGATIVE (NEGATIVE); METHADONE URINE SCREEN NEGATIVE (NEGATIVE); OPIATES URINE SCREEN NEGATIVE (NEGATIVE); PHENCYCLIDINE URINE SCREEN NEGATIVE (NEGATIVE)
[2019-03-11] MEDS ORDERED: PHENYTOIN SODIUM EXTENDED 100MG CAPSULE PO ONE (10:15)
[2019-03-11 11:21] VITALS: BP 114/68
== END 2019-03-11 11:20 | disposition home or self-care (01) ==
LOC: ER 19:09
DX: R45.851 Suicidal ideations (principal); I50.9 Heart failure, unspecified; F14.10 Cocaine abuse, uncomplicated; Z86.73 Personal history of transient ischemic attack (TIA), and cerebral infarction without residual deficits; Z98.890 Other specified postprocedural states; Z79.899 Other long term (current) drug therapy
CPT/HCPCS: 36415; 80305; 80307; 80320; 80329; 81003; 93005; 99284; G0480

== ENCOUNTER 2019-03-26 23:29 | Emergency (ER) | payer MEDICAID ==
[~2019-03-26] VITALS: Ht 162.6 cm; Wt 71.0 kg
[2019-03-26 23:38] VITALS: BP 114/74
== END 2019-03-27 00:30 | disposition left against medical advice (07) ==
LOC: ER 23:29
DX: Z53.21 Procedure and treatment not carried out due to patient leaving prior to being seen by health care provider (principal)

== ENCOUNTER 2019-03-27 08:42 | Emergency (ER) | payer MEDICAID ==
[~2019-03-27] VITALS: Ht 162.6 cm; Wt 70.0 kg
[2019-03-27] MEDS ORDERED: KETOROLAC 30MG/ML VIAL IV STA (09:27)
[2019-03-27 10:03] LABS: CHLORIDE 109 mEq/L (98-107)
[2019-03-27 10:04] LABS: PROTHROMBIN TIME 10.5 sec (9.6-11.0)
[2019-03-27 10:06] LABS: BASOPHILS % 0.5 % (0.0-2.0); EOSINOPHILS % 3.1 % (0.0-5.0); HEMATOCRIT. 32.7 % (36.0-48.0); HEMOGLOBIN. 10.9 g/dL (12.0-16.0); LYMPHOCYTES % 32.3 % (20.0-50.0); MEAN CORPUSCULAR HEMOGLOBIN 28.6 pg (28.0-32.0); MEAN CORPUSCULAR VOLUME 85.9 fL (81.0-99.0); MEAN PLATELET VOLUME 8.1 fl (7.4-10.4); MONOCYTES % 9.7 % (2.0-8.0); NEUTROPHILS % 54.4 % (40.0-76.0); PLATELET 210 x1000/uL (130-400); RED BLOOD CELL COUNT 3.81 mill/uL (4.2-5.4); RED CELL DISTRIBUTION WIDTH 17.9 % (11.6-14.6)
[2019-03-27 10:39] LABS: CLARITY URINE CLEAR (CLEAR); COLOR URINE YELLOW (YELLOW); KETONES URINE TRACE (NEGATIVE); LEUKOCYTE ESTERASE URINE NEGATIVE (NEGATIVE); NITRITE URINE NEGATIVE (NEGATIVE); OCCULT BLOOD URINE NEGATIVE (NEGATIVE); PROTEIN URINE NEGATIVE (NEGATIVE); SPECIFIC GRAVITY URINE 1.041 (1.005-1.030)
[2019-03-27] MEDS ORDERED: PHENYTOIN SODIUM EXTENDED 100MG CAPSULE PO ONE (10:45)
[2019-03-27 12:52] VITALS: BP 148/73
== END 2019-03-27 12:52 | disposition home or self-care (01) ==
LOC: ER 08:42
DX: R07.2 Precordial pain (principal); R50.9 Fever, unspecified; R05 Cough; R09.89 Other specified symptoms and signs involving the circulatory and respiratory systems; D64.9 Anemia, unspecified; M79.605 Pain in left leg; M79.604 Pain in right leg; Z87.828 Personal history of other (healed) physical injury and trauma
CPT/HCPCS: 36415; 71045; 80053; 80185; 81003; 81025; 83690; 83880; 84484; 85025; 85610; 93005; 96374; 99284; J1885; Z7610

== ENCOUNTER 2019-04-02 11:38 | Emergency (ER) | payer MEDICAID ==
[~2019-04-02] VITALS: Ht 165.1 cm; Wt 65.0 kg
[2019-04-02 13:18] LABS: BASOPHILS % 0.9 % (0.0-2.0); EOSINOPHILS % 3.6 % (0.0-5.0); HEMATOCRIT. 39.8 % (36.0-48.0); HEMOGLOBIN. 13.1 g/dL (12.0-16.0); MEAN CORPUSCULAR HEMOGLOBIN 28.3 pg (28.0-32.0); MEAN CORPUSCULAR VOLUME 86.4 fL (81.0-99.0); MEAN PLATELET VOLUME 8.1 fl (7.4-10.4); MONOCYTES % 9.8 % (2.0-8.0); NEUTROPHILS % 36.7 % (40.0-76.0); PLATELET 216 x1000/uL (130-400); RED BLOOD CELL COUNT 4.61 mill/uL (4.2-5.4)
[2019-04-02 13:25] LABS: CHLORIDE 104 mEq/L (98-107)
[2019-04-02 13:29] LABS: ETHANOL BLOOD < 10 mg/dL
[2019-04-02 13:57] LABS: CLARITY URINE CLEAR (CLEAR); COLOR URINE YELLOW (YELLOW); KETONES URINE NEGATIVE (NEGATIVE); LEUKOCYTE ESTERASE URINE NEGATIVE (NEGATIVE); NITRITE URINE NEGATIVE (NEGATIVE); OCCULT BLOOD URINE NEGATIVE (NEGATIVE); PROTEIN URINE NEGATIVE (NEGATIVE); SPECIFIC GRAVITY URINE 1.026 (1.005-1.030)
[2019-04-02 14:16] LABS: *BARBITURATES SCREEN URINE NEGATIVE (NEGATIVE); CANNABINOID URINE SCREEN NEGATIVE (NEGATIVE); OPIATES URINE SCREEN NEGATIVE (NEGATIVE); PHENCYCLIDINE URINE SCREEN NEGATIVE (NEGATIVE)
[2019-04-02 14:17] LABS: *AMPHETAMINES SCREEN URINE NEGATIVE (NEGATIVE); *BENZODIAZEPINES SCREEN URINE PRESUMTIVE POSITIVE (NEGATIVE); *COCAINE SCREEN URINE PRESUMTIVE POSITIVE (NEGATIVE); METHADONE URINE SCREEN NEGATIVE (NEGATIVE)
[2019-04-03] MEDS ORDERED: ONDANSETRON HCL 4MG/2ML INJ IV ONE (02:00)
[2019-04-03] MEDS ORDERED: PHENYTOIN SODIUM EXTENDED 100MG CAPSULE PO NR (08:00)
[2019-04-03 10:13] VITALS: BP 114/75
[2019-04-08] MEDS ORDERED: HYDR-4001 MT (13:38)
== END 2019-04-03 10:31 | disposition home or self-care (01) ==
LOC: ER 11:38
DX: T42.4X1A Poisoning by benzodiazepines, accidental (unintentional), initial encounter (principal); R53.83 Other fatigue; F14.10 Cocaine abuse, uncomplicated; Y92.89 Other specified places as the place of occurrence of the external cause
CPT/HCPCS: 36415; 80053; 80305; 80307; 80320; 80329; 81003; 85025; 96374; 99283; J2405; Z7610; G0480

== ENCOUNTER 2019-04-11 20:25 | Emergency (ER) | payer MEDICAID ==
[~2019-04-11] VITALS: Ht 165.1 cm; Wt 64.0 kg
[~2019-04-11 20:25] MED LIST changes: +HYDR-4001 MT
[2019-04-12] MEDS ORDERED: TETRACAINE 0.5% OPHTH DROPS 4ML LEFTEYE ONE (00:15)
[2019-04-12 00:43] LABS: BASOPHILS % 0.4 % (0.0-2.0); HEMATOCRIT. 37.9 % (36.0-48.0); HEMOGLOBIN. 12.6 g/dL (12.0-16.0); MEAN CORPUSCULAR HEMOGLOBIN 28.5 pg (28.0-32.0); MEAN CORPUSCULAR VOLUME 85.9 fL (81.0-99.0); MEAN PLATELET VOLUME 7.8 fl (7.4-10.4); NEUTROPHILS % 39.6 % (40.0-76.0); PLATELET 235 x1000/uL (130-400); RED BLOOD CELL COUNT 4.41 mill/uL (4.2-5.4); RED CELL DISTRIBUTION WIDTH 18.2 % (11.6-14.6)
[2019-04-12 00:48] LABS: CHLORIDE 101 mEq/L (98-107)
[2019-04-12 00:49] LABS: PROTHROMBIN TIME 10.7 sec (9.6-11.0)
[2019-04-12 00:52] LABS: ETHANOL BLOOD < 10 mg/dL
[2019-04-12] MEDS ORDERED: FLUORESCEIN SODIUM 1MG/STRIP LEFTEYE ONE (01:00)
[2019-04-12 01:25] VITALS: BP 129/74
== END 2019-04-12 01:45 | disposition home or self-care (01) ==
LOC: ER 20:43 → CANBEDREQ 04-12 05:47
DX: H10.32 Unspecified acute conjunctivitis, left eye (principal); F15.10 Other stimulant abuse, uncomplicated; H40.9 Unspecified glaucoma
CPT/HCPCS: 36415; 71045; 80320; 82140; 83880; 84484; 93005; 99284; G0480

== ENCOUNTER 2019-04-12 09:12 | Emergency (ER) | payer MEDICAID ==
[~2019-04-12] VITALS: Ht 162.6 cm; Wt 69.0 kg
[2019-04-12 11:10] LABS: BASOPHILS % 1.2 % (0.0-2.0); EOSINOPHILS % 2.9 % (0.0-5.0); HEMATOCRIT. 38.8 % (36.0-48.0); HEMOGLOBIN. 12.7 g/dL (12.0-16.0); MEAN CORPUSCULAR HEMOGLOBIN 28.4 pg (28.0-32.0); MEAN CORPUSCULAR VOLUME 86.7 fL (81.0-99.0); MEAN PLATELET VOLUME 8.2 fl (7.4-10.4); MONOCYTES % 14.3 % (2.0-8.0); NEUTROPHILS % 41.6 % (40.0-76.0); PLATELET 228 x1000/uL (130-400); RED BLOOD CELL COUNT 4.47 mill/uL (4.2-5.4)
[2019-04-12 11:16] LABS: CHLORIDE 103 mEq/L (98-107)
[2019-04-12] MEDS ORDERED: PHENYTOIN SODIUM EXTENDED 100MG CAPSULE PO ONE (11:45)
[2019-04-12 13:54] VITALS: BP 100/55
== END 2019-04-12 14:11 | disposition home or self-care (01) ==
LOC: ER 09:12
DX: R51 Headache (principal); R07.89 Other chest pain; F14.10 Cocaine abuse, uncomplicated; G40.909 Epilepsy, unspecified, not intractable, without status epilepticus
CPT/HCPCS: 36415; 71045; 80185; 84484; 93005; 99284

== ENCOUNTER 2019-06-05 07:00 | Emergency (ER) | payer MEDICAID ==
[~2019-06-05] VITALS: Ht 167.6 cm; Wt 75.0 kg
[~2019-06-05 07:00] MED LIST changes: -ASPI-1393 PO; +ASPI-1497 PO
[2019-06-05] MEDS ORDERED: KETOROLAC 60MG/2ML VIAL IM ONE (08:45)
[2019-06-05 08:46] VITALS: BP 119/86
== END 2019-06-05 08:47 | disposition home or self-care (01) ==
LOC: ER 07:00
DX: R52 Pain, unspecified (principal); J02.9 Acute pharyngitis, unspecified; F16.10 Hallucinogen abuse, uncomplicated; F15.10 Other stimulant abuse, uncomplicated
CPT/HCPCS: 96372; 99283; J1885

== ENCOUNTER 2019-06-13 22:58 | Emergency (ER) | payer MEDICAID ==
[~2019-06-13] VITALS: Ht 154.9 cm; Wt 71.0 kg
[2019-06-14 08:56] LABS: *BARBITURATES SCREEN URINE NEGATIVE (NEGATIVE); *BENZODIAZEPINES SCREEN URINE NEGATIVE (NEGATIVE); *COCAINE SCREEN URINE PRESUMTIVE POSITIVE (NEGATIVE); METHADONE URINE SCREEN NEGATIVE (NEGATIVE); OPIATES URINE SCREEN PRESUMTIVE POSITIVE (NEGATIVE)
[2019-06-14 08:57] LABS: *AMPHETAMINES SCREEN URINE NEGATIVE (NEGATIVE); CANNABINOID URINE SCREEN NEGATIVE (NEGATIVE); PHENCYCLIDINE URINE SCREEN NEGATIVE (NEGATIVE)
[2019-06-14 09:47] LABS: BASOPHILS % 0.7 % (0.0-2.0); EOSINOPHILS % 2.6 % (0.0-5.0); HEMATOCRIT. 37.9 % (36.0-48.0); HEMOGLOBIN. 12.6 g/dL (12.0-16.0); LYMPHOCYTES % 38.1 % (20.0-50.0); MEAN CORPUSCULAR HEMOGLOBIN 28.9 pg (28.0-32.0); MEAN CORPUSCULAR VOLUME 86.6 fL (81.0-99.0); MEAN PLATELET VOLUME 8.1 fl (7.4-10.4); MONOCYTES % 8.4 % (2.0-8.0); NEUTROPHILS % 50.2 % (40.0-76.0); PLATELET 220 x1000/uL (130-400); RED BLOOD CELL COUNT 4.38 mill/uL (4.2-5.4)
[2019-06-14 09:54] LABS: CHLORIDE 101 mEq/L (98-107)
[2019-06-14 09:58] LABS: ETHANOL BLOOD < 10 mg/dL
[2019-06-14] MEDS: NITROFURANTOIN 100MG M/M CAPSULE PO SCH ×2 (10:01→17:08)
[2019-06-14] MEDS ORDERED: SODIUM CHLORIDE 0.9% 1,000 ML IV ONE (10:14)
[2019-06-14] MEDS ORDERED: ACETAMINOPHEN 325MG TABLET PO ONE (16:45)
[2019-06-14 17:23] VITALS: BP 133/85
== END 2019-06-14 17:39 | disposition home or self-care (01) ==
LOC: ER 22:58 → CANBEDREQ 06-14 19:42
DX: R45.851 Suicidal ideations (principal); F14.10 Cocaine abuse, uncomplicated; T42.0X5A Adverse effect of hydantoin derivatives, initial encounter; Y92.89 Other specified places as the place of occurrence of the external cause; N39.0 Urinary tract infection, site not specified; Z98.51 Tubal ligation status; F31.9 Bipolar disorder, unspecified; F20.9 Schizophrenia, unspecified; F15.10 Other stimulant abuse, uncomplicated; Z79.82 Long term (current) use of aspirin; Z79.899 Other long term (current) drug therapy
CPT/HCPCS: 36415; 80053; 80185; 80305; 80307; 80320; 80329; 85025; 99284; J7030; G0480

== ENCOUNTER 2019-07-08 20:38 | Emergency (ER) | payer MEDICAID | END 2019-07-08 21:02 | disposition left against medical advice (07) | LOC: ER 20:38 | DX: R07.9 Chest pain, unspecified (principal); R11.10 Vomiting, unspecified; Z53.21 Procedure and treatment not carried out due to patient leaving prior to being seen by health care provider ==

== ENCOUNTER 2019-07-09 01:59 | Emergency (ER) | payer MEDICAID ==
[~2019-07-09] VITALS: Ht 160 cm; Wt 75.0 kg
[2019-07-09] MEDS ORDERED: METOCLOPRAMIDE HCL 10MG TABLET PO ONE (06:45)
[2019-07-09] MEDS ORDERED: ACETAMINOPHEN 325MG TABLET PO ONE (06:45)
[2019-07-09 07:09] VITALS: BP 132/67
== END 2019-07-09 07:09 | disposition home or self-care (01) ==
LOC: ER 01:59
DX: R51 Headache (principal); R07.89 Other chest pain; I10 Essential (primary) hypertension; F15.10 Other stimulant abuse, uncomplicated
CPT/HCPCS: 93005; 99283; J8597

== ENCOUNTER 2019-07-15 22:55 | Emergency (ER) | payer MEDICAID ==
[~2019-07-15] VITALS: Ht 162.6 cm; Wt 85.0 kg
[2019-07-16 03:00] VITALS: BP 110/87
== END 2019-07-16 03:56 | disposition home or self-care (01) ==
LOC: ER 22:55
DX: R07.89 Other chest pain (principal)
CPT/HCPCS: 71045; 93005; 99283

== ENCOUNTER 2019-07-16 07:29 | Emergency (ER) | payer MEDICAID ==
[~2019-07-16] VITALS: Ht 162.6 cm; Wt 72.0 kg
[2019-07-16] MEDS ORDERED: SODIUM CHLORIDE 0.9% 1,000 ML IV ONE (08:05)
[2019-07-16 08:30] LABS: BASOPHILS % 0.7 % (0.0-2.0); EOSINOPHILS % 2.2 % (0.0-5.0); HEMATOCRIT. 32.2 % (36.0-48.0); HEMOGLOBIN. 10.6 g/dL (12.0-16.0); LYMPHOCYTES % 46.9 % (20.0-50.0); MEAN CORPUSCULAR HEMOGLOBIN 27.7 pg (28.0-32.0); MEAN CORPUSCULAR VOLUME 84.3 fL (81.0-99.0); MEAN PLATELET VOLUME 7.5 fl (7.4-10.4); MONOCYTES % 14.2 % (2.0-8.0); PLATELET 214 x1000/uL (130-400); RED BLOOD CELL COUNT 3.81 mill/uL (4.2-5.4)
[2019-07-16 08:35] LABS: CHLORIDE 105 mEq/L (98-107)
[2019-07-16 08:39] LABS: ETHANOL BLOOD < 10 mg/dL
[2019-07-16] MEDS ORDERED: PHENYTOIN SODIUM 1,000 MG in SODIUM CHLORIDE 0.9% 100 ML IV ONE (09:00)
[2019-07-16 11:26] LABS: CLARITY URINE CLEAR (CLEAR); COLOR URINE YELLOW (YELLOW); KETONES URINE NEGATIVE (NEGATIVE); LEUKOCYTE ESTERASE URINE NEGATIVE (NEGATIVE); NITRITE URINE NEGATIVE (NEGATIVE); OCCULT BLOOD URINE NEGATIVE (NEGATIVE); PH URINE 6.5 (4.5-8.0); PROTEIN URINE NEGATIVE (NEGATIVE); SPECIFIC GRAVITY URINE 1.019 (1.005-1.030)
[2019-07-16 11:44] LABS: *AMPHETAMINES SCREEN URINE PRESUMTIVE POSITIVE (NEGATIVE); *BARBITURATES SCREEN URINE NEGATIVE (NEGATIVE); *BENZODIAZEPINES SCREEN URINE NEGATIVE (NEGATIVE); *COCAINE SCREEN URINE PRESUMTIVE POSITIVE (NEGATIVE)
[2019-07-16 11:45] LABS: CANNABINOID URINE SCREEN NEGATIVE (NEGATIVE); METHADONE URINE SCREEN NEGATIVE (NEGATIVE); OPIATES URINE SCREEN NEGATIVE (NEGATIVE); PHENCYCLIDINE URINE SCREEN NEGATIVE (NEGATIVE)
[2019-07-16] MEDS ORDERED: PHENYTOIN SODIUM EXTENDED 100MG CAPSULE PO ONE (11:45)
[2019-07-16 12:00] VITALS: BP 135/70
== END 2019-07-16 12:09 | disposition home or self-care (01) ==
LOC: ER 07:29
DX: G40.909 Epilepsy, unspecified, not intractable, without status epilepticus (principal); R51 Headache; N39.0 Urinary tract infection, site not specified; I11.0 Hypertensive heart disease with heart failure; I50.9 Heart failure, unspecified; Z87.19 Personal history of other diseases of the digestive system; Z91.14 Patient's other noncompliance with medication regimen; Z85.9 Personal history of malignant neoplasm, unspecified; Z79.899 Other long term (current) drug therapy
CPT/HCPCS: 36415; 71045; 80053; 80185; 80305; 80320; 81003; 85025; 87086; 96365; 96366; 99291; J1165; J7030; J7050; 99284; G0480

== ENCOUNTER 2019-08-05 03:49 | Emergency (ER) | payer MEDICAID ==
[~2019-08-05] VITALS: Ht 162.6 cm; Wt 70.0 kg
[2019-08-05] MEDS ORDERED: ASPIRIN 325MG EC TABLET PO ONE (04:45)
[2019-08-05 05:15] LABS: CHLORIDE 105 mEq/L (98-107)
[2019-08-05 05:19] LABS: ETHANOL BLOOD < 10 mg/dL
[2019-08-05 05:31] LABS: BASOPHILS % 0.7 % (0.0-2.0); EOSINOPHILS % 2.4 % (0.0-5.0); HEMATOCRIT. 33.6 % (36.0-48.0); HEMOGLOBIN. 11.1 g/dL (12.0-16.0); LYMPHOCYTES % 44.6 % (20.0-50.0); MEAN CORPUSCULAR HEMOGLOBIN 28.1 pg (28.0-32.0); MEAN CORPUSCULAR VOLUME 84.8 fL (81.0-99.0); MEAN PLATELET VOLUME 7.9 fl (7.4-10.4); MONOCYTES % 9.3 % (2.0-8.0); PLATELET 242 x1000/uL (130-400); RED BLOOD CELL COUNT 3.96 mill/uL (4.2-5.4); RED CELL DISTRIBUTION WIDTH 17.9 % (11.6-14.6)
[2019-08-05 20:57] VITALS: BP 140/78
== END 2019-08-05 20:58 | disposition home or self-care (01) ==
LOC: ER 03:49
DX: R07.89 Other chest pain (principal); R45.851 Suicidal ideations; J44.9 Chronic obstructive pulmonary disease, unspecified; I50.9 Heart failure, unspecified; I25.2 Old myocardial infarction; F15.10 Other stimulant abuse, uncomplicated; Z79.899 Other long term (current) drug therapy; Z79.82 Long term (current) use of aspirin
CPT/HCPCS: 36415; 71045; 80053; 80307; 80320; 80329; 84484; 85025; 93005; 99285; G0480

== ENCOUNTER 2019-08-31 13:30 | Emergency (ER) | payer MEDICAID ==
[~2019-08-31] VITALS: Ht 165.1 cm; Wt 79.0 kg
[2019-08-31] MEDS ORDERED: HYDROCODONE/ACETAMINOPHEN 5/325MG TABLET PO ONE (15:15)
[2019-08-31] MEDS ORDERED: ONDANSETRON 4MG ODT PO ONE (15:15)
[2019-08-31 15:55] LABS: CHLORIDE 107 mEq/L (98-107)
[2019-08-31 15:59] LABS: BASOPHILS % 0.5 % (0.0-2.0); EOSINOPHILS % 2.1 % (0.0-5.0); ETHANOL BLOOD < 10 mg/dL; HEMATOCRIT. 37.5 % (36.0-48.0); HEMOGLOBIN. 12.2 g/dL (12.0-16.0); LYMPHOCYTES % 41.7 % (20.0-50.0); MEAN CORPUSCULAR HEMOGLOBIN 27.9 pg (28.0-32.0); MEAN CORPUSCULAR VOLUME 85.5 fL (81.0-99.0); MONOCYTES % 7.1 % (2.0-8.0); NEUTROPHILS % 48.6 % (40.0-76.0); RED BLOOD CELL COUNT 4.38 mill/uL (4.2-5.4); RED CELL DISTRIBUTION WIDTH 18.7 % (11.6-14.6)
[2019-08-31 16:39] LABS: MEAN PLATELET VOLUME 8.4 fl (7.4-10.4); PLATELET 211 x1000/uL (130-400)
[2019-08-31 16:40] LABS: PLATELET ESTIMATE NORMAL
[2019-08-31 19:07] VITALS: BP 120/65
== END 2019-08-31 19:14 | disposition home or self-care (01) ==
LOC: ER 13:30
DX: R07.89 Other chest pain (principal); R10.9 Unspecified abdominal pain; J45.909 Unspecified asthma, uncomplicated; I50.9 Heart failure, unspecified; J44.9 Chronic obstructive pulmonary disease, unspecified; I25.2 Old myocardial infarction; F20.9 Schizophrenia, unspecified; Z86.73 Personal history of transient ischemic attack (TIA), and cerebral infarction without residual deficits; Z98.51 Tubal ligation status; F15.10 Other stimulant abuse, uncomplicated; Z79.899 Other long term (current) drug therapy
CPT/HCPCS: 36415; 71045; 80053; 80307; 80320; 80329; 84484; 85025; 93005; 99285; Q0162; G0480

== ENCOUNTER 2019-09-08 16:24 | Emergency (ER) | payer MEDICAID ==
[~2019-09-08] VITALS: Ht 170.2 cm; Wt 64.0 kg
[2019-09-08] MEDS ORDERED: IBUPROFEN 600MG TABLET PO STA (16:37)
[2019-09-08 17:51] LABS: BASOPHILS % 0.7 % (0.0-2.0); EOSINOPHILS % 4.4 % (0.0-5.0); HEMATOCRIT. 37.4 % (36.0-48.0); HEMOGLOBIN. 12.3 g/dL (12.0-16.0); LYMPHOCYTES % 47.3 % (20.0-50.0); MEAN CORPUSCULAR HEMOGLOBIN 27.8 pg (28.0-32.0); MEAN CORPUSCULAR VOLUME 84.6 fL (81.0-99.0); MEAN PLATELET VOLUME 8.1 fl (7.4-10.4); MONOCYTES % 14.6 % (2.0-8.0); PLATELET 180 x1000/uL (130-400); RED BLOOD CELL COUNT 4.42 mill/uL (4.2-5.4); RED CELL DISTRIBUTION WIDTH 19.1 % (11.6-14.6)
[2019-09-08 17:58] LABS: CHLORIDE 107 mEq/L (98-107)
[2019-09-08 18:03] LABS: ETHANOL BLOOD < 10 mg/dL
[2019-09-08 18:05] LABS: INR 1.1; PROTHROMBIN TIME 11.5 sec (9.6-11.0)
[2019-09-08 20:18] LABS: CLARITY URINE CLEAR (CLEAR); COLOR URINE DARK YELLOW (YELLOW); KETONES URINE TRACE (NEGATIVE); LEUKOCYTE ESTERASE URINE 1+ (NEGATIVE); NITRITE URINE NEGATIVE (NEGATIVE); OCCULT BLOOD URINE NEGATIVE (NEGATIVE); PROTEIN URINE 1+ (NEGATIVE); SPECIFIC GRAVITY URINE 1.033 (1.005-1.030)
[2019-09-08] MEDS ORDERED: NITROFURANTOIN 100MG M/M CAPSULE PO ONE (20:30)
[2019-09-08 20:39] LABS: *AMPHETAMINES SCREEN URINE NEGATIVE (NEGATIVE); *BARBITURATES SCREEN URINE NEGATIVE (NEGATIVE); *BENZODIAZEPINES SCREEN URINE NEGATIVE (NEGATIVE)
[2019-09-08 20:40] LABS: *COCAINE SCREEN URINE PRESUMTIVE POSITIVE (NEGATIVE); METHADONE URINE SCREEN NEGATIVE (NEGATIVE); OPIATES URINE SCREEN NEGATIVE (NEGATIVE); PHENCYCLIDINE URINE SCREEN NEGATIVE (NEGATIVE)
[2019-09-08 20:41] LABS: CANNABINOID URINE SCREEN NEGATIVE (NEGATIVE)
[2019-09-09 10:15] VITALS: BP 112/64
== END 2019-09-09 12:13 | disposition home or self-care (01) ==
LOC: ER 16:24
DX: R53.1 Weakness (principal); T40.5X1A Poisoning by cocaine, accidental (unintentional), initial encounter; Y92.89 Other specified places as the place of occurrence of the external cause; Z59.0 Homelessness; I11.0 Hypertensive heart disease with heart failure; I50.9 Heart failure, unspecified; I25.2 Old myocardial infarction; F20.9 Schizophrenia, unspecified; J45.909 Unspecified asthma, uncomplicated; J44.9 Chronic obstructive pulmonary disease, unspecified; Z86.73 Personal history of transient ischemic attack (TIA), and cerebral infarction without residual deficits; Z98.51 Tubal ligation status; F15.10 Other stimulant abuse, uncomplicated; Z79.899 Other long term (current) drug therapy
CPT/HCPCS: 36415; 71045; 80053; 80305; 80320; 81003; 84484; 85025; 93005; 99285; G0480

== ENCOUNTER 2019-09-24 18:31 | Emergency (ER) | payer MEDICAID ==
[~2019-09-24] VITALS: Ht 165.1 cm; Wt 64.0 kg
[2019-09-24] MEDS ORDERED: KETOROLAC 30MG/ML VIAL IV STA (18:45)
[2019-09-24] MEDS ORDERED: SODIUM CHLORIDE 0.9% 1,000 ML IV ONE (18:45)
[2019-09-24 19:31] LABS: BASOPHILS % 0.3 % (0.0-2.0); EOSINOPHILS % 1.6 % (0.0-5.0); HEMATOCRIT. 36.8 % (36.0-48.0); HEMOGLOBIN. 12.1 g/dL (12.0-16.0); LYMPHOCYTES % 26.9 % (20.0-50.0); MEAN CORPUSCULAR HEMOGLOBIN 27.6 pg (28.0-32.0); MEAN CORPUSCULAR VOLUME 83.8 fL (81.0-99.0); MEAN PLATELET VOLUME 7.9 fl (7.4-10.4); MONOCYTES % 8.2 % (2.0-8.0); PLATELET 244 x1000/uL (130-400); RED BLOOD CELL COUNT 4.39 mill/uL (4.2-5.4); RED CELL DISTRIBUTION WIDTH 19.1 % (11.6-14.6)
[2019-09-24 19:36] VITALS: BP 183/91
[2019-09-24 19:37] LABS: CHLORIDE 100 mEq/L (98-107)
[2019-09-24 19:41] LABS: ETHANOL BLOOD < 10 mg/dL
[2019-09-24 19:45] LABS: *AMPHETAMINES SCREEN URINE NEGATIVE (NEGATIVE); *BARBITURATES SCREEN URINE NEGATIVE (NEGATIVE); *BENZODIAZEPINES SCREEN URINE NEGATIVE (NEGATIVE); *COCAINE SCREEN URINE PRESUMTIVE POSITIVE (NEGATIVE); METHADONE URINE SCREEN NEGATIVE (NEGATIVE); OPIATES URINE SCREEN NEGATIVE (NEGATIVE)
[2019-09-24 19:46] LABS: CANNABINOID URINE SCREEN NEGATIVE (NEGATIVE); PHENCYCLIDINE URINE SCREEN NEGATIVE (NEGATIVE)
== END 2019-09-24 21:41 | disposition home or self-care (01) ==
LOC: ER 18:31
DX: T40.5X1A Poisoning by cocaine, accidental (unintentional), initial encounter (principal); R07.89 Other chest pain; F14.129 Cocaine abuse with intoxication, unspecified; Z71.51 Drug abuse counseling and surveillance of drug abuser; I10 Essential (primary) hypertension; Y92.89 Other specified places as the place of occurrence of the external cause
CPT/HCPCS: 36415; 71045; 80053; 80305; 80320; 83880; 84484; 85025; 93005; 96374; 99285; J1885; J7030; G0480

== ENCOUNTER 2019-12-08 22:55 | Emergency (ER) | payer MEDICAID ==
[~2019-12-08] VITALS: Ht 162.6 cm; Wt 67.0 kg
[2019-12-09 02:24] LABS: EOSINOPHILS % 3.1 % (0.0-5.0); HEMATOCRIT. 34.7 % (36.0-48.0); HEMOGLOBIN. 11.1 g/dL (12.0-16.0); MEAN CORPUSCULAR HEMOGLOBIN 27.1 pg (28.0-32.0); MEAN CORPUSCULAR VOLUME 84.5 fL (81.0-99.0); MEAN PLATELET VOLUME 7.7 fl (7.4-10.4); MONOCYTES % 9.4 % (2.0-8.0); NEUTROPHILS % 34.5 % (40.0-76.0); PLATELET 219 x1000/uL (130-400); RED BLOOD CELL COUNT 4.11 mill/uL (4.2-5.4); RED CELL DISTRIBUTION WIDTH 18.8 % (11.6-14.6)
[2019-12-09 02:44] LABS: CHLORIDE 105 mEq/L (98-107)
[2019-12-09 02:48] LABS: ETHANOL BLOOD < 10 mg/dL
[2019-12-09 03:16] LABS: CLARITY URINE CLOUDY (CLEAR); COLOR URINE DARK YELLOW (YELLOW); KETONES URINE TRACE (NEGATIVE); LEUKOCYTE ESTERASE URINE 2+ (NEGATIVE); NITRITE URINE NEGATIVE (NEGATIVE); OCCULT BLOOD URINE NEGATIVE (NEGATIVE); PROTEIN URINE 1+ (NEGATIVE); SPECIFIC GRAVITY URINE 1.036 (1.005-1.030)
[2019-12-09 03:26] LABS: *AMPHETAMINES SCREEN URINE NEGATIVE (NEGATIVE); *BARBITURATES SCREEN URINE NEGATIVE (NEGATIVE); *COCAINE SCREEN URINE PRESUMTIVE POSITIVE (NEGATIVE); METHADONE URINE SCREEN NEGATIVE (NEGATIVE); OPIATES URINE SCREEN NEGATIVE (NEGATIVE); PHENCYCLIDINE URINE SCREEN NEGATIVE (NEGATIVE)
[2019-12-09 03:27] LABS: *BENZODIAZEPINES SCREEN URINE NEGATIVE (NEGATIVE); CANNABINOID URINE SCREEN NEGATIVE (NEGATIVE)
[2019-12-09 10:05] VITALS: BP 144/90
== END 2019-12-09 10:54 | disposition home or self-care (01) ==
LOC: ER 22:55
DX: R45.851 Suicidal ideations (principal); I10 Essential (primary) hypertension; F15.10 Other stimulant abuse, uncomplicated; F31.9 Bipolar disorder, unspecified; F20.9 Schizophrenia, unspecified; F14.10 Cocaine abuse, uncomplicated; Z79.82 Long term (current) use of aspirin; Z79.899 Other long term (current) drug therapy
CPT/HCPCS: 36415; 71045; 80053; 80305; 80307; 80320; 80329; 81003; 84484; 85025; 93005; 99285; G0480

== ENCOUNTER 2020-01-27 15:22 | Emergency (ER) | payer MEDICAID, OTHER ==
[~2020-01-27] VITALS: Ht 162.6 cm; Wt 64.0 kg
[2020-01-27] MEDS ORDERED: SODIUM CHLORIDE 0.9% 1,000 ML IV ONE (18:13)
[2020-01-27] MEDS ORDERED: NITROGLYCERIN 0.4MG TABLET SL SL PRN (18:15)
[2020-01-27] MEDS ORDERED: ASPIRIN 81MG TABLET PO ONE (18:15)
[2020-01-27 19:22] LABS: BASOPHILS % 0.3 % (0.0-2.0); EOSINOPHILS % 3.8 % (0.0-5.0); HEMATOCRIT. 28.9 % (36.0-48.0); HEMOGLOBIN. 9.5 g/dL (12.0-16.0); MEAN CORPUSCULAR HEMOGLOBIN 27.3 pg (28.0-32.0); MEAN CORPUSCULAR VOLUME 82.8 fL (81.0-99.0); MEAN PLATELET VOLUME 7.8 fl (7.4-10.4); MONOCYTES % 10.5 % (2.0-8.0); NEUTROPHILS % 33.4 % (40.0-76.0); PLATELET 222 x1000/uL (130-400); RED BLOOD CELL COUNT 3.49 mill/uL (4.2-5.4); RED CELL DISTRIBUTION WIDTH 17.9 % (11.6-14.6)
[2020-01-27 19:28] LABS: CHLORIDE 106 mEq/L (98-107)
[2020-01-27 19:30] LABS: D-DIMER 0.34 mg/L FEU (<0.50); INR 1.3; PARTIAL THROMBOPLASTIN TIME 21.9 sec (23.4-31.0); PROTHROMBIN TIME 13.3 sec (9.6-11.0)
[2020-01-27 19:35] LABS: ETHANOL BLOOD < 10 mg/dL
[2020-01-27 22:54] LABS: CLARITY URINE CLEAR (CLEAR); COLOR URINE YELLOW (YELLOW); KETONES URINE NEGATIVE (NEGATIVE); LEUKOCYTE ESTERASE URINE NEGATIVE (NEGATIVE); NITRITE URINE NEGATIVE (NEGATIVE); OCCULT BLOOD URINE NEGATIVE (NEGATIVE); PH URINE 7.5 (4.5-8.0); PROTEIN URINE NEGATIVE (NEGATIVE); SPECIFIC GRAVITY URINE 1.023 (1.005-1.030)
[2020-01-27 23:03] LABS: *AMPHETAMINES SCREEN URINE NEGATIVE (NEGATIVE); *BARBITURATES SCREEN URINE NEGATIVE (NEGATIVE); *BENZODIAZEPINES SCREEN URINE NEGATIVE (NEGATIVE)
[2020-01-27 23:04] LABS: *COCAINE SCREEN URINE PRESUMTIVE POSITIVE (NEGATIVE); CANNABINOID URINE SCREEN NEGATIVE (NEGATIVE); METHADONE URINE SCREEN NEGATIVE (NEGATIVE); OPIATES URINE SCREEN NEGATIVE (NEGATIVE); PHENCYCLIDINE URINE SCREEN NEGATIVE (NEGATIVE)
[2020-01-28 08:00] VITALS: BP 148/101
[2020-01-28] MEDS ORDERED: PHENYTOIN SODIUM EXTENDED 100MG CAPSULE PO ONE (11:30)
== END 2020-01-28 11:33 | disposition home or self-care (01) ==
LOC: ER 15:22
DX: F32.3 Major depressive disorder, single episode, severe with psychotic features (principal); R45.851 Suicidal ideations; R07.89 Other chest pain; F14.10 Cocaine abuse, uncomplicated; I50.9 Heart failure, unspecified; J45.909 Unspecified asthma, uncomplicated; Z76.5 Malingerer [conscious simulation]; F17.210 Nicotine dependence, cigarettes, uncomplicated; Z71.6 Tobacco abuse counseling; Z86.718 Personal history of other venous thrombosis and embolism; Z79.82 Long term (current) use of aspirin; Z79.899 Other long term (current) drug therapy
CPT/HCPCS: 36415; 71045; 80053; 80305; 80307; 80320; 80329; 81003; 83690; 83880; 84484; 85025; 85379; 85610; 85730; 93005; 93970; 99285; 99406; J7030; G0480

== ENCOUNTER 2020-02-18 21:23 | Emergency (ER) | payer OTHER ==
[~2020-02-18] VITALS: Ht 162.6 cm; Wt 65.0 kg
[2020-02-18 21:25] VITALS: BP 116/71
[2020-02-18] MEDS ORDERED: PHENYTOIN SODIUM EXTENDED 100MG CAPSULE PO ONE (23:30)
[2020-02-19 01:26] LABS: CHLORIDE 106 mEq/L (98-107)
[2020-02-19 01:28] LABS: BASOPHILS % 0.4 % (0.0-2.0); EOSINOPHILS % 3.1 % (0.0-5.0); HEMATOCRIT. 30.7 % (36.0-48.0); HEMOGLOBIN. 10.3 g/dL (12.0-16.0); LYMPHOCYTES % 47.2 % (20.0-50.0); MEAN CORPUSCULAR HEMOGLOBIN 28.1 pg (28.0-32.0); MEAN CORPUSCULAR VOLUME 83.7 fL (81.0-99.0); MONOCYTES % 10.6 % (2.0-8.0); NEUTROPHILS % 38.7 % (40.0-76.0); PLATELET 216 x1000/uL (130-400); RED BLOOD CELL COUNT 3.67 mill/uL (4.2-5.4); RED CELL DISTRIBUTION WIDTH 19.2 % (11.6-14.6)
[2020-02-19 01:30] LABS: ETHANOL BLOOD < 10 mg/dL
== END 2020-02-19 04:20 | disposition home or self-care (01) ==
LOC: ER 21:23
DX: R07.89 Other chest pain (principal); G40.909 Epilepsy, unspecified, not intractable, without status epilepticus; J45.909 Unspecified asthma, uncomplicated; E11.9 Type 2 diabetes mellitus without complications; I50.9 Heart failure, unspecified
CPT/HCPCS: 36415; 71045; 80053; 80307; 80320; 80329; 83880; 84484; 85025; 93005; 99285; G0480

== ENCOUNTER 2020-04-11 15:23 | Emergency (ER) | payer OTHER ==
[~2020-04-11] VITALS: Ht 160 cm; Wt 73.0 kg
[2020-04-11 23:19] LABS: BASOPHILS % 0.7 % (0.0-2.0); HEMATOCRIT. 32.3 % (36.0-48.0); HEMOGLOBIN. 10.9 g/dL (12.0-16.0); LYMPHOCYTES % 52.6 % (20.0-50.0); MEAN CORPUSCULAR HEMOGLOBIN 28.1 pg (28.0-32.0); MEAN CORPUSCULAR VOLUME 83.1 fL (81.0-99.0); MONOCYTES % 12.4 % (2.0-8.0); NEUTROPHILS % 32.3 % (40.0-76.0); PLATELET 202 x1000/uL (130-400); RED BLOOD CELL COUNT 3.89 mill/uL (4.2-5.4); RED CELL DISTRIBUTION WIDTH 18.1 % (11.6-14.6)
[2020-04-11 23:25] LABS: CHLORIDE 109 mEq/L (98-107)
[2020-04-12 01:44] VITALS: BP 122/80
== END 2020-04-12 01:47 | disposition left against medical advice (07) ==
LOC: ER 15:23
DX: R07.89 Other chest pain (principal); R19.7 Diarrhea, unspecified; R03.0 Elevated blood-pressure reading, without diagnosis of hypertension; E11.9 Type 2 diabetes mellitus without complications; I50.9 Heart failure, unspecified; G40.909 Epilepsy, unspecified, not intractable, without status epilepticus
CPT/HCPCS: 36415; 71045; 80053; 84484; 85025; 93005; 99284

== ENCOUNTER 2020-09-02 00:15 | Emergency (ER) | payer OTHER ==
[~2020-09-02] VITALS: Ht 162.6 cm; Wt 72.0 kg
[~2020-09-02 00:15] MED LIST changes: -FAMO-135 MT; -HYDR-4001 MT; -HYDR-4001 PO; -LACT10SO7 PO; -LORA-250 PO; -PHEN100C4 PO; -QUET100T PO
[2020-09-02 00:30] VITALS: BP 100/62
== END 2020-09-02 01:15 | disposition left against medical advice (07) ==
LOC: ER 00:15
DX: Z53.21 Procedure and treatment not carried out due to patient leaving prior to being seen by health care provider (principal)

== ENCOUNTER 2020-09-02 06:31 | Emergency (ER) | payer OTHER ==
[~2020-09-02] VITALS: Ht 162.6 cm; Wt 70.0 kg
[2020-09-02 06:39] VITALS: BP 104/69
== END 2020-09-02 08:41 | disposition left against medical advice (07) ==
LOC: ER 06:31
DX: Z53.21 Procedure and treatment not carried out due to patient leaving prior to being seen by health care provider (principal)

== ENCOUNTER 2020-10-31 00:39 | Emergency (ER) | payer MEDICAID, OTHER ==
[~2020-10-31] VITALS: Ht 165.1 cm; Wt 60.0 kg
[2020-10-31 02:45] LABS: BASOPHILS % 0.3 % (0.0-2.0); EOSINOPHILS % 3.4 % (0.0-5.0); HEMATOCRIT. 31.6 % (36.0-48.0); HEMOGLOBIN. 10.4 g/dL (12.0-16.0); LYMPHOCYTES % 54.9 % (20.0-50.0); MEAN CORPUSCULAR HEMOGLOBIN 27.8 pg (28.0-32.0); MEAN CORPUSCULAR VOLUME 84.6 fL (81.0-99.0); MEAN PLATELET VOLUME 7.7 fl (7.4-10.4); MONOCYTES % 12.3 % (2.0-8.0); NEUTROPHILS % 29.1 % (40.0-76.0); PLATELET 176 x1000/uL (130-400); RED BLOOD CELL COUNT 3.73 mill/uL (4.2-5.4); RED CELL DISTRIBUTION WIDTH 19.3 % (11.6-14.6)
[2020-10-31 02:53] LABS: CHLORIDE 104 mEq/L (98-107)
[2020-10-31 02:57] LABS: ETHANOL BLOOD < 10 mg/dL
[2020-10-31 07:53] VITALS: BP 141/82
[2020-11-08] MEDS ORDERED: TOPUD MT (02:59)
== END 2020-10-31 08:45 | disposition left against medical advice (07) ==
LOC: ER 00:39
DX: R45.851 Suicidal ideations (principal); I50.9 Heart failure, unspecified; K21.9 Gastro-esophageal reflux disease without esophagitis; Z86.73 Personal history of transient ischemic attack (TIA), and cerebral infarction without residual deficits; Z98.890 Other specified postprocedural states; F17.290 Nicotine dependence, other tobacco product, uncomplicated; Z20.822 Contact with and (suspected) exposure to COVID-19
CPT/HCPCS: 36415; 71045; 80053; 80307; 80320; 80329; 85025; 87426; 99285; G0480

== ENCOUNTER 2021-02-26 07:36 | Emergency (ER) | payer MEDICAID, OTHER ==
[~2021-02-26] VITALS: Ht 165.1 cm; Wt 75.0 kg
[~2021-02-26 07:36] MED LIST changes: +ABIL5 PO; +GABA-529 PO; +PHEN100C4 PO; +RIVA20TA PO; +TOPUD MT
[2021-02-26] MEDS ORDERED: KETOROLAC 15MG/ML VIAL IM ONE (08:00)
[2021-02-26] MEDS ORDERED: RIVA10TA MT (08:24)
[2021-02-26 08:30] VITALS: BP 122/80
== END 2021-02-26 09:43 | disposition home or self-care (01) ==
LOC: ER 07:53
DX: R51.9 Headache, unspecified (principal); I11.0 Hypertensive heart disease with heart failure; I50.9 Heart failure, unspecified; E11.9 Type 2 diabetes mellitus without complications; Z86.718 Personal history of other venous thrombosis and embolism; Z79.01 Long term (current) use of anticoagulants; Z86.73 Personal history of transient ischemic attack (TIA), and cerebral infarction without residual deficits; I25.2 Old myocardial infarction
CPT/HCPCS: 82962; 96372; 99283; J1885

== ENCOUNTER 2021-03-11 13:06 | Inpatient (IN) | payer MEDICAID, OTHER ==
[~2021-03-11] VITALS: Ht 162.6 cm; Wt 71.2 kg
[~2021-03-11 13:06] MED LIST changes: +RIVA10TA MT
[2021-03-11] MEDS ORDERED: ASPIRIN 81MG TABLET PO ONE (14:45)
[2021-03-11 14:57] LABS: BG BASE EXCESS -1.8 mmol/L (-2.0-2.0); BG CARBOXYHEMOGLOBIN 1.4 % (0.5-1.5); BG DEOXYHEMOGLOBIN 3.5 % (0.0-5.0); BG FRACTION INSPIRED OXYGEN 21; BG HCO3 ACT 22.8 mmol/L (22.0-26.0); BG METHEMOGLOBIN 0.2 % (0.0-1.5); BG OXYGEN SATURATION 96.4 % (92.0-98.5); BG OXYHEMOGLOBIN 94.9 % (94.0-97.0); BG PCO2 37.9 mmHg (35.0-45.0); BG PH 7.397 (7.350-7.450); BG PO2 89.3 mmHg (75.0-100.0); BG TOTAL HEMOGLOBIN 10.6 g/dL (12.0-18.0); BG VENT MODE ROOM AIR
[2021-03-11 15:23] LABS: BASOPHILS % 0.7 % (0.0-2.0); EOSINOPHILS % 2.4 % (0.0-5.0); HEMATOCRIT. 34.5 % (36.0-48.0); LYMPHOCYTES % 38.1 % (20.0-50.0); MEAN CORPUSCULAR HEMOGLOBIN 28.1 pg (28.0-32.0); MEAN CORPUSCULAR VOLUME 88.2 fL (81.0-99.0); MEAN PLATELET VOLUME 8.1 fl (7.4-10.4); MONOCYTES % 9.8 % (2.0-8.0); PLATELET 220 x1000/uL (130-400); RED BLOOD CELL COUNT 3.91 mill/uL (4.2-5.4); RED CELL DISTRIBUTION WIDTH 17.7 % (11.6-14.6)
[2021-03-11 15:29] LABS: CHLORIDE 109 mEq/L (98-107)
[2021-03-12 02:50] VITALS: BP 159/101
[2021-03-12] MEDS ORDERED: AMOX-424 MT (03:42)
[2021-03-12] MEDS ORDERED: GABA-532 MT (03:42)
[2021-03-12] MEDS ORDERED: ESCI5TAB16 PO (03:42)
[2021-03-12] MEDS ORDERED: ATOR40TA70 MT (03:42)
[2021-03-12] MEDS ORDERED: METF-414 MT (03:42)
[2021-03-12] MEDS ORDERED: RIVA10TA PO (03:42)
[2021-03-12] MEDS ORDERED: LISI2.5T47 MT (03:42)
[2021-03-12] MEDS ORDERED: DEXTROSE 50% WATER 50ML SYRINGE IV PRN (04:15)
[2021-03-12] MEDS: NITROGLYCERIN 0.4MG TABLET SL SL PRN ×2 (04:35→15:14)
[2021-03-12] MEDS ORDERED: NALOXONE HCL 0.4MG/ML VIAL IV PRN (04:45)
[2021-03-12] MEDS ORDERED: *PATIENT'S OWN MEDICATION STORAGE XX SCH (04:45)
[2021-03-12] MEDS: MORPHINE SULFATE 2 MG/ML CPJ (NOT FOR IM USE) IV PRN ×4 (05:29→18:48)
[2021-03-12] MEDS: INSULIN LISPRO 100 UNITS/ML SUBCUT SCH ×4 (07:53→21:35)
[2021-03-12] MEDS: BLOOD SUGAR DIAGNOSTIC STRIP TEST SCH ×4 (07:53→20:59)
[2021-03-12 08:00] VITALS: BP 159/91
[2021-03-12 08:37] LABS: HEMATOCRIT 31.8 % (36.0-48.0); HEMOGLOBIN 10.4 g/dL (12.0-16.0); MEAN CORPUSCULAR HEMOGLOBIN 27.7 pg (28.0-32.0); PLATELET 212 x1000/uL (130-400); RED BLOOD CELL COUNT 3.75 mill/uL (4.2-5.4); RED CELL DISTRIBUTION WIDTH 17.5 % (11.6-14.6)
[2021-03-12 08:52] LABS: CHLORIDE 109 mEq/L (98-107)
[2021-03-12] MEDS ORDERED: PNEUMOCOCCAL 23-VAL P-SAC VAC 0.5 ML IM ONE (09:00)
[2021-03-12] MEDS: ASPIRIN 81MG TABLET PO SCH (09:09)
[2021-03-12] MEDS ORDERED: INFLUENZA VACCINE 05/PF 0.5 ML SYRINGE IM ONE (10:00)
[2021-03-12] MEDS: AMLODIPINE 5MG TABLET PO SCH (10:46)
[2021-03-12] MEDS ORDERED: CALCIUM CARBONATE 500MG TABLET CHEW PO PRN (11:15)
[2021-03-12] MEDS ORDERED: RIVAROXABAN 10 MG TABLET PO SCH (11:30)
[2021-03-12] MEDS: CITALOPRAM HYDROBROMIDE 10MG TABLET PO SCH (11:32)
[2021-03-12] MEDS: NICOTINE 7MG PATCH TD SCH (11:32)
[2021-03-12] MEDS: ARIPIPRAZOLE 5MG TABLET PO SCH (11:32)
[2021-03-12] MEDS: PHENYTOIN SODIUM EXTENDED 100MG CAPSULE PO SCH ×3 (11:32→16:08)
[2021-03-12] MEDS: FAMOTIDINE 20MG/2ML VIAL IV SCH ×2 (11:32→20:59)
[2021-03-12 12:00] VITALS: BP 124/86
[2021-03-12] MEDS: GABAPENTIN 100MG CAPSULE PO SCH ×2 (13:08→16:08)
[2021-03-12 16:00] VITALS: BP 120/88
[2021-03-12] MEDS ORDERED: RIVAROXABAN 10 MG TABLET PO NR (16:00)
[2021-03-12] MEDS: METFORMIN HCL 500MG TABLET PO SCH (17:12)
[2021-03-12 20:00] VITALS: BP 125/74
[2021-03-12] MEDS: ATORVASTATIN CALCIUM 40MG TABLET PO SCH (20:59)
[2021-03-12] MEDS: HYDROCODONE/ACETAMINOPHEN 5/325MG TABLET PO PRN (21:34)
[2021-03-13] VITALS: BP 135/68
[2021-03-13 04:00] VITALS: BP 130/75
[2021-03-13] MEDS: MORPHINE SULFATE 2 MG/ML CPJ (NOT FOR IM USE) IV PRN ×4 (04:23→23:38)
[2021-03-13 05:57] LABS: BASOPHILS % 0.5 % (0.0-2.0); EOSINOPHILS % 2.5 % (0.0-5.0); HEMATOCRIT. 32.9 % (36.0-48.0); LYMPHOCYTES % 37.1 % (20.0-50.0); MEAN CORPUSCULAR HEMOGLOBIN 28.1 pg (28.0-32.0); MEAN CORPUSCULAR VOLUME 84.1 fL (81.0-99.0); MONOCYTES % 9.1 % (2.0-8.0); NEUTROPHILS % 50.8 % (40.0-76.0); PLATELET 216 x1000/uL (130-400); RED BLOOD CELL COUNT 3.91 mill/uL (4.2-5.4); RED CELL DISTRIBUTION WIDTH 17.3 % (11.6-14.6)
[2021-03-13 06:10] LABS: CHLORIDE 103 mEq/L (98-107)
[2021-03-13] MEDS: INSULIN LISPRO 100 UNITS/ML SUBCUT SCH ×4 (07:55→20:23)
[2021-03-13] MEDS: BLOOD SUGAR DIAGNOSTIC STRIP TEST SCH ×4 (07:55→21:40)
[2021-03-13] MEDS: METFORMIN HCL 500MG TABLET PO SCH ×2 (07:57→17:20)
[2021-03-13] MEDS: HYDROCODONE/ACETAMINOPHEN 5/325MG TABLET PO PRN ×2 (07:57→20:21)
[2021-03-13 08:00] VITALS: BP 159/95
[2021-03-13] MEDS: NICOTINE 7MG PATCH TD SCH (09:01)
[2021-03-13] MEDS: FAMOTIDINE 20MG/2ML VIAL IV SCH (09:01)
[2021-03-13] MEDS: ASPIRIN 81MG TABLET PO SCH (09:02)
[2021-03-13] MEDS: PHENYTOIN SODIUM EXTENDED 100MG CAPSULE PO SCH ×3 (09:02→17:21)
[2021-03-13] MEDS: ARIPIPRAZOLE 5MG TABLET PO SCH (09:02)
[2021-03-13] MEDS: AMLODIPINE 5MG TABLET PO SCH (09:02)
[2021-03-13] MEDS: GABAPENTIN 100MG CAPSULE PO SCH ×3 (09:02→17:20)
[2021-03-13] MEDS: CITALOPRAM HYDROBROMIDE 10MG TABLET PO SCH (09:02)
[2021-03-13] MEDS ORDERED: REGADENOSON 0.4 MG/5 ML IV ONE (11:00)
[2021-03-13] MEDS ORDERED: SODIUM CHLORIDE 0.9% 1,000 ML IV SCH (11:00)
[2021-03-13] MEDS ORDERED: PRAMOXINE HCL 1% FOAM TP PRN (11:00)
[2021-03-13 12:00] VITALS: BP 150/89
[2021-03-13] MEDS ORDERED: IOHEXOL-300 100 ML BOTTLE ONE (13:41)
[2021-03-13 16:00] VITALS: BP 136/80
[2021-03-13] MEDS: RIVAROXABAN 20 MG TABLET PO SCH (17:21)
[2021-03-13 19:20] LABS: *AMPHETAMINES SCREEN URINE NEGATIVE (NEGATIVE); *BENZODIAZEPINES SCREEN URINE NEGATIVE (NEGATIVE); *COCAINE SCREEN URINE PRESUMTIVE POSITIVE (NEGATIVE)
[2021-03-13 19:22] LABS: *BARBITURATES SCREEN URINE NEGATIVE (NEGATIVE); CANNABINOID URINE SCREEN NEGATIVE (NEGATIVE); METHADONE URINE SCREEN NEGATIVE (NEGATIVE); OPIATES URINE SCREEN PRESUMTIVE POSITIVE (NEGATIVE); PHENCYCLIDINE URINE SCREEN NEGATIVE (NEGATIVE)
[2021-03-13 20:00] VITALS: BP 151/86
[2021-03-13] MEDS: FAMOTIDINE 20MG TABLET PO SCH (20:20)
[2021-03-13] MEDS: ATORVASTATIN CALCIUM 40MG TABLET PO SCH (21:40)
[2021-03-14] VITALS: BP 138/80
[2021-03-14] MEDS: HYDROCODONE/ACETAMINOPHEN 5/325MG TABLET PO PRN ×3 (02:26→16:43)
[2021-03-14 04:00] VITALS: BP 159/84
[2021-03-14] MEDS: MORPHINE SULFATE 2 MG/ML CPJ (NOT FOR IM USE) IV PRN ×2 (05:43→13:09)
[2021-03-14 06:33] LABS: CHLORIDE 101 mEq/L (98-107)
[2021-03-14 08:00] VITALS: BP 135/89
[2021-03-14] MEDS: INSULIN LISPRO 100 UNITS/ML SUBCUT SCH ×3 (08:00→18:00)
[2021-03-14] MEDS: BLOOD SUGAR DIAGNOSTIC STRIP TEST SCH ×3 (08:00→17:49)
[2021-03-14] MEDS: FAMOTIDINE 20MG TABLET PO SCH (08:36)
[2021-03-14] MEDS: AMLODIPINE 5MG TABLET PO SCH (08:36)
[2021-03-14] MEDS: CITALOPRAM HYDROBROMIDE 10MG TABLET PO SCH (08:36)
[2021-03-14] MEDS: PHENYTOIN SODIUM EXTENDED 100MG CAPSULE PO SCH (08:36)
[2021-03-14] MEDS: ARIPIPRAZOLE 5MG TABLET PO SCH (08:36)
[2021-03-14] MEDS: GABAPENTIN 100MG CAPSULE PO SCH ×3 (08:37→18:07)
[2021-03-14] MEDS: NICOTINE 7MG PATCH TD SCH (08:38)
[2021-03-14] MEDS: ASPIRIN 81MG TABLET PO SCH (08:38)
[2021-03-14] MEDS: METFORMIN HCL 500MG TABLET PO SCH ×2 (08:38→18:20)
[2021-03-14] MEDS ORDERED: REGADENOSON 0.4 MG/5 ML IV ONE (11:23)
[2021-03-14] MEDS ORDERED: [UNRECOGNIZED DRUG - OTHER] XX SCH (12:45)
[2021-03-14] MEDS ORDERED: PHENYTOIN XX SCH (12:45)
[2021-03-14] MEDS ORDERED: RIVA20TA PO (12:51)
[2021-03-14] MEDS ORDERED: FAMO20TA8 MT (12:51)
[2021-03-14] MEDS ORDERED: KEPP500 MT (12:51)
[2021-03-14] MEDS ORDERED: PHENYTOIN SODIUM 100MG/2ML VIAL IV SCH (13:30)
[2021-03-14] MEDS: PHENYTOIN SODIUM 500MG in SODIUM CHLORIDE 0.9% 50ML IV SCH ×2 (15:09→17:30)
[2021-03-14] MEDS ORDERED: PHENYTOIN SODIUM 100MG/2ML VIAL IV NR (18:00)
[2021-03-14] MEDS: RIVAROXABAN 20 MG TABLET PO SCH (18:07)
[2021-03-14 18:29] VITALS: BP 133/67
== END 2021-03-14 18:48 | disposition home or self-care (01) | DRG 203 ==
LOC: ER 13:06 → MICUSO 20:38 → EDBEDREQTM 20:42 → EDBEDREQ 20:42 → 5EST 03-12 00:22
PROVIDERS: ADMIT Internal Medicine; ATTEND Internal Medicine
DX: M94.0 Chondrocostal junction syndrome [Tietze] (principal); I26.99 Other pulmonary embolism without acute cor pulmonale; I42.0 Dilated cardiomyopathy; C80.1 Malignant (primary) neoplasm, unspecified; E11.9 Type 2 diabetes mellitus without complications; D64.9 Anemia, unspecified; E78.5 Hyperlipidemia, unspecified; F14.90 Cocaine use, unspecified, uncomplicated; I11.0 Hypertensive heart disease with heart failure; F17.200 Nicotine dependence, unspecified, uncomplicated; F20.9 Schizophrenia, unspecified; I50.42 Chronic combined systolic (congestive) and diastolic (congestive) heart failure; I25.10 Atherosclerotic heart disease of native coronary artery without angina pectoris; K21.9 Gastro-esophageal reflux disease without esophagitis; R56.9 Unspecified convulsions; Z20.822 Contact with and (suspected) exposure to COVID-19; F99 Mental disorder, not otherwise specified; K56.41 Fecal impaction; I25.2 Old myocardial infarction; Z79.84 Long term (current) use of oral hypoglycemic drugs; Z82.49 Family history of ischemic heart disease and other diseases of the circulatory system; Z85.42 Personal history of malignant neoplasm of other parts of uterus; Z86.718 Personal history of other venous thrombosis and embolism; Z86.73 Personal history of transient ischemic attack (TIA), and cerebral infarction without residual deficits; Z79.899 Other long term (current) drug therapy; Z79.1 Long term (current) use of non-steroidal anti-inflammatories (NSAID); Z79.82 Long term (current) use of aspirin; Z91.19 Patient's noncompliance with other medical treatment and regimen
CPT/HCPCS: 36415; 36600; 71045; 71260; 74177; 78452; 80048; 80053; 80185; 80305; 82375; 82805; 82962; 83036; 83605; 83880; 84484; 85025; 85027; 85379; 87426; 90686; 90732; 93005; 93017; 93306; 99285; A9500; J1165; J1815; J2270; J2785; J3490; J7030; Q9967

== ENCOUNTER 2021-06-10 02:54 | Emergency (ER) | payer OTHER ==
[~2021-06-10] VITALS: Ht 162.6 cm; Wt 67.0 kg
[~2021-06-10 02:54] MED LIST changes: +ATOR40TA70 MT; +ESCI5TAB16 PO; +FAMO20TA8 MT; -GABA-529 PO; +GABA-532 MT; +IBUP-2029 MT; +KEPP500 MT; +LISI2.5T47 MT; +METF-414 MT; -RIVA10TA MT
[2021-06-10] MEDS ORDERED: ASPIRIN 81MG TABLET PO ONE (03:30)
[2021-06-10 06:27] LABS: BASOPHILS % 0.9 % (0.0-2.0); HEMATOCRIT. 34.3 % (36.0-48.0); HEMOGLOBIN. 11.2 g/dL (12.0-16.0); LYMPHOCYTES % 36.2 % (20.0-50.0); MEAN CORPUSCULAR HEMOGLOBIN 27.6 pg (28.0-32.0); MEAN CORPUSCULAR VOLUME 84.4 fL (81.0-99.0); MEAN PLATELET VOLUME 8.1 fl (7.4-10.4); MONOCYTES % 8.9 % (2.0-8.0); PLATELET 219 x1000/uL (130-400); RED BLOOD CELL COUNT 4.07 mill/uL (4.2-5.4); RED CELL DISTRIBUTION WIDTH 18.3 % (11.6-14.6)
[2021-06-10 06:36] LABS: CHLORIDE 107 mEq/L (98-107)
[2021-06-10] MEDS ORDERED: CEPH500T MT (07:09)
[2021-06-10 08:44] LABS: CLARITY URINE CLEAR (CLEAR); COLOR URINE YELLOW (YELLOW); KETONES URINE NEGATIVE (NEGATIVE); LEUKOCYTE ESTERASE URINE NEGATIVE (NEGATIVE); NITRITE URINE NEGATIVE (NEGATIVE); OCCULT BLOOD URINE NEGATIVE (NEGATIVE); PH URINE 6.5 (4.5-8.0); PROTEIN URINE NEGATIVE (NEGATIVE); SPECIFIC GRAVITY URINE 1.007 (1.005-1.030); UROBILINOGEN URINE 0.2 E.U./dL (0.2-1.0)
[2021-06-10 08:58] VITALS: BP 132/85
== END 2021-06-10 08:58 | disposition home or self-care (01) ==
LOC: ER 02:54
DX: R07.89 Other chest pain (principal); I10 Essential (primary) hypertension; F14.10 Cocaine abuse, uncomplicated; Z98.890 Other specified postprocedural states; Z79.899 Other long term (current) drug therapy; Z98.51 Tubal ligation status
CPT/HCPCS: 36415; 71045; 73140; 80053; 81003; 83880; 84484; 85025; 85379; 93005; 99285

== ENCOUNTER 2021-08-07 15:18 | Inpatient (IN) | payer OTHER ==
[~2021-08-07] VITALS: Ht 162.6 cm; Wt 70.8 kg
[~2021-08-07 15:18] MED LIST changes: +ALBU90AE INH; -TOPUD MT
[2021-08-07] MEDS ORDERED: SODIUM CHLORIDE 0.9% 1,000 ML IV ONE (18:30)
[2021-08-07 19:16] LABS: EOSINOPHILS % 1.9 % (0.0-5.0); HEMATOCRIT. 39.1 % (36.0-48.0); HEMOGLOBIN. 12.7 g/dL (12.0-16.0); LYMPHOCYTES % 48.4 % (20.0-50.0); MEAN CORPUSCULAR VOLUME 82.8 fL (81.0-99.0); MEAN PLATELET VOLUME 7.9 fl (7.4-10.4); MONOCYTES % 11.3 % (2.0-8.0); NEUTROPHILS % 37.4 % (40.0-76.0); PLATELET 270 x1000/uL (130-400); RED BLOOD CELL COUNT 4.73 mill/uL (4.2-5.4); RED CELL DISTRIBUTION WIDTH 18.4 % (11.6-14.6)
[2021-08-07 19:21] LABS: CHLORIDE 97 mEq/L (98-107)
[2021-08-07 19:22] LABS: CLARITY URINE CLEAR (CLEAR); COLOR URINE YELLOW (YELLOW); KETONES URINE TRACE (NEGATIVE); LEUKOCYTE ESTERASE URINE NEGATIVE (NEGATIVE); NITRITE URINE NEGATIVE (NEGATIVE); OCCULT BLOOD URINE NEGATIVE (NEGATIVE); PH URINE 5.5 (4.5-8.0); PROTEIN URINE NEGATIVE (NEGATIVE); SPECIFIC GRAVITY URINE 1.027 (1.005-1.030)
[2021-08-07 19:25] LABS: ETHANOL BLOOD < 10 mg/dL
[2021-08-07] MEDS ORDERED: POTASSIUM CHLORIDE 20MEQ TABLET SR PO ONE (19:30)
[2021-08-07] MEDS ORDERED: IBUPROFEN 400MG TABLET PO ONE (19:30)
[2021-08-07 19:32] LABS: *BARBITURATES SCREEN URINE NEGATIVE (NEGATIVE); CANNABINOID URINE SCREEN NEGATIVE (NEGATIVE); METHADONE URINE SCREEN NEGATIVE (NEGATIVE); OPIATES URINE SCREEN NEGATIVE (NEGATIVE); PHENCYCLIDINE URINE SCREEN NEGATIVE (NEGATIVE)
[2021-08-07 19:33] LABS: *AMPHETAMINES SCREEN URINE NEGATIVE (NEGATIVE); *BENZODIAZEPINES SCREEN URINE NEGATIVE (NEGATIVE); *COCAINE SCREEN URINE PRESUMTIVE POSITIVE (NEGATIVE)
[2021-08-07] MEDS ORDERED: ASPIRIN 325MG EC TABLET PO NR (20:00)
[2021-08-08] MEDS ORDERED: IPRATROPIUM/ALBUTEROL 0.5-3(2.5)MG/3ML NEB HHN PRN (10:15)
[2021-08-08] MEDS ORDERED: ONDANSETRON HCL 4MG/2ML INJ IV PRN (10:15)
[2021-08-08] MEDS ORDERED: DEXTROSE 50% WATER 50ML SYRINGE IV PRN (10:15)
[2021-08-08] MEDS ORDERED: ACETAMINOPHEN 325MG TABLET PO PRN (10:15)
[2021-08-08 11:15] VITALS: BP 115/61
[2021-08-08] MEDS: BLOOD SUGAR DIAGNOSTIC STRIP TEST SCH ×3 (12:50→20:05)
[2021-08-08] MEDS: INSULIN LISPRO 100 UNITS/ML SUBCUT SCH ×3 (12:50→21:31)
[2021-08-08 16:00] VITALS: BP 159/112
[2021-08-08] MEDS ORDERED: CARI250T PO (17:25)
[2021-08-08] MEDS ORDERED: ASPI-1497 PO (17:25)
[2021-08-08] MEDS ORDERED: LISI10TA26 PO (17:25)
[2021-08-08] MEDS ORDERED: KEPP500 PO ×2 (17:25→20:09)
[2021-08-08] MEDS ORDERED: PHEN100C4 PO (17:25)
[2021-08-08] MEDS ORDERED: LORA2TAB95 PO (17:25)
[2021-08-08] MEDS ORDERED: METO25TA6 PO (17:25)
[2021-08-08] MEDS ORDERED: ALBUTEROL (0.083%) 2.5MG/3ML NEB HHN PRN (19:00)
[2021-08-08 20:00] VITALS: BP 129/83
[2021-08-08] MEDS ORDERED: ASPI-1406 PO (20:09)
[2021-08-08] MEDS ORDERED: ATORVASTATIN CALCIUM 40MG TABLET PO SCH (21:00)
[2021-08-08] MEDS: LEVETIRACETAM 500MG TABLET PO SCH (21:28)
[2021-08-08] MEDS: FAMOTIDINE 20MG TABLET PO SCH (21:28)
[2021-08-09] MEDS: IBUPROFEN 600MG TABLET PO PRN ×2 (01:37→18:02)
[2021-08-09 04:00] VITALS: BP 110/74
[2021-08-09] MEDS: BLOOD SUGAR DIAGNOSTIC STRIP TEST SCH (05:26)
[2021-08-09] MEDS: INSULIN LISPRO 100 UNITS/ML SUBCUT SCH ×3 (06:08→17:25)
[2021-08-09 08:00] VITALS: BP 139/88
[2021-08-09] MEDS: GABAPENTIN 300MG CAPSULE PO SCH ×3 (08:16→17:22)
[2021-08-09] MEDS: PHENYTOIN SODIUM EXTENDED 100MG CAPSULE PO SCH ×2 (08:16→17:22)
[2021-08-09] MEDS: LEVETIRACETAM 500MG TABLET PO SCH (08:17)
[2021-08-09] MEDS: METFORMIN HCL 500MG TABLET PO SCH ×2 (08:18→17:22)
[2021-08-09] MEDS: FAMOTIDINE 20MG TABLET PO SCH (08:18)
[2021-08-09] MEDS ORDERED: ASPIRIN 81MG EC TABLET PO SCH (09:00)
[2021-08-09] MEDS ORDERED: METOPROLOL TARTRATE 25MG TABLET PO SCH (09:00)
[2021-08-09] MEDS ORDERED: LISINOPRIL 10MG TABLET PO SCH (09:00)
[2021-08-09] MEDS ORDERED: ARIPIPRAZOLE 5MG TABLET PO SCH (09:00)
[2021-08-09] MEDS ORDERED: ASPIRIN 81MG TABLET PO SCH (09:00)
[2021-08-09 12:00] VITALS: BP 125/83
[2021-08-09 16:00] VITALS: BP 117/75
[2021-08-09] MEDS ORDERED: RIVAROXABAN 20 MG TABLET PO SCH (17:00)
[2021-08-09 18:49] VITALS: BP 117/75
[2021-08-09] MEDS ORDERED: QUETIAPINE FUMARATE 50MG TABLET PO SCH (21:00)
[2021-08-10] MEDS ORDERED: OLANZAPINE 5MG TABLET PO SCH (09:00)
== END 2021-08-09 19:55 | disposition home or self-care (01) | DRG 816 ==
LOC: ER 15:18 → MICUSO 22:15 → 8WST 08-08 11:21
PROVIDERS: ADMIT Internal Medicine; ATTEND Internal Medicine
DX: T40.5X1A Poisoning by cocaine, accidental (unintentional), initial encounter (principal); I24.9 Acute ischemic heart disease, unspecified; E87.8 Other disorders of electrolyte and fluid balance, not elsewhere classified; D72.819 Decreased white blood cell count, unspecified; E87.6 Hypokalemia; E11.9 Type 2 diabetes mellitus without complications; I50.9 Heart failure, unspecified; I11.0 Hypertensive heart disease with heart failure; R74.01 Elevation of levels of liver transaminase levels; G40.909 Epilepsy, unspecified, not intractable, without status epilepticus; J45.909 Unspecified asthma, uncomplicated; F20.9 Schizophrenia, unspecified; F31.9 Bipolar disorder, unspecified; Z60.2 Problems related to living alone; F14.10 Cocaine abuse, uncomplicated; F17.210 Nicotine dependence, cigarettes, uncomplicated; Z79.84 Long term (current) use of oral hypoglycemic drugs; Z79.899 Other long term (current) drug therapy; Z79.82 Long term (current) use of aspirin; Z71.51 Drug abuse counseling and surveillance of drug abuser; Z85.89 Personal history of malignant neoplasm of other organs and systems; Z86.718 Personal history of other venous thrombosis and embolism; Z86.73 Personal history of transient ischemic attack (TIA), and cerebral infarction without residual deficits; Y92.89 Other specified places as the place of occurrence of the external cause
CPT/HCPCS: 36415; 71045; 80053; 80305; 80307; 80320; 80329; 81003; 82962; 84484; 85025; 93005; 93306; 99285; J1815; J7030; G0480

== ENCOUNTER 2021-09-01 16:36 | Emergency (ER) | payer OTHER ==
[~2021-09-01] VITALS: Ht 170.2 cm; Wt 66.0 kg
[~2021-09-01 16:36] MED LIST changes: +ASPI-1406 PO; -ASPI-1497 PO; +CARI250T PO; -KEPP500 MT; +KEPP500 PO; +LISI10TA26 PO; -LISI2.5T47 MT; +LORA2TAB95 PO; +METO25TA6 PO
[2021-09-01 19:02] LABS: BASOPHILS % 0.5 % (0.0-2.0); EOSINOPHILS % 1.7 % (0.0-5.0); HEMATOCRIT. 33.2 % (36.0-48.0); HEMOGLOBIN. 10.8 g/dL (12.0-16.0); LYMPHOCYTES % 46.8 % (20.0-50.0); MEAN CORPUSCULAR HEMOGLOBIN 27.5 pg (28.0-32.0); MEAN CORPUSCULAR VOLUME 84.6 fL (81.0-99.0); MEAN PLATELET VOLUME 7.5 fl (7.4-10.4); MONOCYTES % 9.5 % (2.0-8.0); NEUTROPHILS % 41.5 % (40.0-76.0); PLATELET 213 x1000/uL (130-400); RED BLOOD CELL COUNT 3.92 mill/uL (4.2-5.4); RED CELL DISTRIBUTION WIDTH 19.6 % (11.6-14.6)
[2021-09-01 19:09] LABS: CHLORIDE 105 mEq/L (98-107)
[2021-09-01] MEDS ORDERED: ASPIRIN 81MG EC TABLET PO ONE (21:15)
[2021-09-01 23:00] VITALS: BP 129/83
== END 2021-09-01 23:10 | disposition short-term general hospital (02) ==
LOC: ER 16:36
DX: R07.89 Other chest pain (principal); R94.31 Abnormal electrocardiogram [ECG] [EKG]; F14.90 Cocaine use, unspecified, uncomplicated
CPT/HCPCS: 36415; 71045; 80053; 82962; 83880; 84484; 85025; 93005; 99285

== ENCOUNTER 2021-10-29 21:50 | Emergency (ER) | payer OTHER ==
[~2021-10-29] VITALS: Ht 165.1 cm; Wt 58.2 kg
[2021-10-30 01:08] LABS: BASOPHILS % 0.6 % (0.0-2.0); HEMOGLOBIN. 11.6 g/dL (12.0-16.0); LYMPHOCYTES % 47.4 % (20.0-50.0); MEAN CORPUSCULAR HEMOGLOBIN 27.4 pg (28.0-32.0); MEAN CORPUSCULAR VOLUME 85.2 fL (81.0-99.0); MEAN PLATELET VOLUME 7.8 fl (7.4-10.4); MONOCYTES % 10.9 % (2.0-8.0); NEUTROPHILS % 38.1 % (40.0-76.0); PLATELET 210 x1000/uL (130-400); RED BLOOD CELL COUNT 4.23 mill/uL (4.2-5.4); RED CELL DISTRIBUTION WIDTH 18.8 % (11.6-14.6)
[2021-10-30 01:14] LABS: CHLORIDE 99 mEq/L (98-107)
[2021-10-30 01:23] LABS: ETHANOL BLOOD < 10 mg/dL
[2021-10-30 01:55] LABS: *AMPHETAMINES SCREEN URINE NEGATIVE (NEGATIVE); *BARBITURATES SCREEN URINE NEGATIVE (NEGATIVE); *BENZODIAZEPINES SCREEN URINE NEGATIVE (NEGATIVE); *COCAINE SCREEN URINE PRESUMTIVE POSITIVE (NEGATIVE); CANNABINOID URINE SCREEN NEGATIVE (NEGATIVE); METHADONE URINE SCREEN NEGATIVE (NEGATIVE); OPIATES URINE SCREEN NEGATIVE (NEGATIVE); PHENCYCLIDINE URINE SCREEN NEGATIVE (NEGATIVE)
[2021-10-30 06:00] VITALS: BP 125/75
== END 2021-10-30 06:15 | disposition home or self-care (01) ==
LOC: ER 21:50
DX: R44.0 Auditory hallucinations (principal); R51.9 Headache, unspecified; I50.9 Heart failure, unspecified; E11.9 Type 2 diabetes mellitus without complications; I25.2 Old myocardial infarction; Z86.73 Personal history of transient ischemic attack (TIA), and cerebral infarction without residual deficits; Z85.6 Personal history of leukemia; F14.10 Cocaine abuse, uncomplicated; Z79.899 Other long term (current) drug therapy
CPT/HCPCS: 36415; 80053; 80305; 80307; 80320; 80329; 85025; 93005; 99284; G0480

== ENCOUNTER 2021-12-09 23:00 | Emergency (ER) | payer OTHER ==
[~2021-12-09] VITALS: Ht 162.6 cm; Wt 72.4 kg
[2021-12-10 00:33] LABS: CLARITY URINE CLEAR (CLEAR); COLOR URINE YELLOW (YELLOW); KETONES URINE TRACE (NEGATIVE); LEUKOCYTE ESTERASE URINE 2+ (NEGATIVE); NITRITE URINE NEGATIVE (NEGATIVE); OCCULT BLOOD URINE NEGATIVE (NEGATIVE); PROTEIN URINE TRACE (NEGATIVE); SPECIFIC GRAVITY URINE 1.025 (1.005-1.030)
[2021-12-10 00:51] LABS: *AMPHETAMINES SCREEN URINE PRESUMTIVE POSITIVE (NEGATIVE); *BARBITURATES SCREEN URINE NEGATIVE (NEGATIVE); *BENZODIAZEPINES SCREEN URINE NEGATIVE (NEGATIVE); *COCAINE SCREEN URINE PRESUMTIVE POSITIVE (NEGATIVE); CANNABINOID URINE SCREEN NEGATIVE (NEGATIVE); METHADONE URINE SCREEN NEGATIVE (NEGATIVE); OPIATES URINE SCREEN NEGATIVE (NEGATIVE); PHENCYCLIDINE URINE SCREEN NEGATIVE (NEGATIVE)
[2021-12-10 00:57] LABS: BASOPHILS % 0.3 % (0.0-2.0); EOSINOPHILS % 3.9 % (0.0-5.0); HEMATOCRIT. 33.2 % (36.0-48.0); HEMOGLOBIN. 10.7 g/dL (12.0-16.0); LYMPHOCYTES % 36.6 % (20.0-50.0); MEAN CORPUSCULAR HEMOGLOBIN 26.9 pg (28.0-32.0); MEAN CORPUSCULAR VOLUME 83.5 fL (81.0-99.0); MEAN PLATELET VOLUME 7.8 fl (7.4-10.4); MONOCYTES % 11.4 % (2.0-8.0); NEUTROPHILS % 47.8 % (40.0-76.0); PLATELET 210 x1000/uL (130-400); RED BLOOD CELL COUNT 3.97 mill/uL (4.2-5.4); RED CELL DISTRIBUTION WIDTH 17.8 % (11.6-14.6)
[2021-12-10 01:08] LABS: CHLORIDE 104 mEq/L (98-107)
[2021-12-10 01:18] LABS: ETHANOL BLOOD < 10 mg/dL
[2021-12-10] MEDS ORDERED: FLUOXETINE HCL 10 MG CAPSULE PO SCH (11:45)
[2021-12-10] MEDS: OLANZAPINE 5MG TABLET PO SCH ×2 (13:11→21:45)
[2021-12-10] MEDS: CEPHALEXIN 250MG CAPSULE PO SCH ×3 (13:11→21:45)
[2021-12-10] MEDS ORDERED: ACETAMINOPHEN 325MG TABLET PO ONE (17:45)
[2021-12-10] MEDS ORDERED: LEVETIRACETAM 500MG TABLET PO SCH (21:00)
[2021-12-11] MEDS ORDERED: RIVAROXABAN 20 MG TABLET PO SCH ×2 (01:29→17:00)
[2021-12-11] MEDS ORDERED: ACETAMINOPHEN 325MG TABLET PO NR (01:30)
[2021-12-11] MEDS ORDERED: PHENYTOIN SODIUM EXTENDED 100MG CAPSULE PO SCH (09:30)
[2021-12-11] MEDS ORDERED: PHEN100C4 PO (10:49)
[2021-12-11] MEDS ORDERED: KEPP500 PO (10:49)
[2021-12-11 10:50] VITALS: BP 115/68
== END 2021-12-11 10:52 | disposition home or self-care (01) ==
LOC: ER 23:00
DX: R45.851 Suicidal ideations (principal); I50.9 Heart failure, unspecified; E11.9 Type 2 diabetes mellitus without complications; I25.2 Old myocardial infarction; Z86.73 Personal history of transient ischemic attack (TIA), and cerebral infarction without residual deficits; F14.10 Cocaine abuse, uncomplicated; Z79.899 Other long term (current) drug therapy; Z20.822 Contact with and (suspected) exposure to COVID-19
CPT/HCPCS: 36415; 80053; 80305; 80307; 80320; 80329; 81001; 85025; 99285; C9803; U0003; U0005; G0480

== ENCOUNTER 2022-01-02 19:13 | Emergency (ER) | payer OTHER ==
[~2022-01-02] VITALS: Ht 162.6 cm; Wt 74.0 kg
[2022-01-02] MEDS ORDERED: KETOROLAC 30MG/ML VIAL IV STA (19:44)
[2022-01-02] MEDS ORDERED: SODIUM CHLORIDE 0.9% 1,000 ML IV ONE (19:45)
[2022-01-02] MEDS ORDERED: ONDANSETRON HCL 4MG/2ML INJ IV ONE (19:45)
[2022-01-02] MEDS ORDERED: DOXYCYCLINE HYCLATE 100 MG/VIAL IV ONE (20:00)
[2022-01-02] MEDS ORDERED: DOXYCYCLINE 100MG in DEXTROSE 5% WATER 100ML IV NR (20:00)
[2022-01-02] MEDS ORDERED: CEFTRIAXONE 1 G PREMIX 50 ML IV ONE (20:00)
[2022-01-02 21:15] LABS: BASOPHILS % 0.6 % (0.0-2.0); HEMATOCRIT. 27.7 % (36.0-48.0); HEMOGLOBIN. 9.1 g/dL (12.0-16.0); LYMPHOCYTES % 53.4 % (20.0-50.0); MEAN CORPUSCULAR HEMOGLOBIN 27.5 pg (28.0-32.0); MEAN CORPUSCULAR VOLUME 83.7 fL (81.0-99.0); MEAN PLATELET VOLUME 8.6 fl (7.4-10.4); MONOCYTES % 9.1 % (2.0-8.0); NEUTROPHILS % 33.9 % (40.0-76.0); PLATELET 164 x1000/uL (130-400); RED BLOOD CELL COUNT 3.31 mill/uL (4.2-5.4); RED CELL DISTRIBUTION WIDTH 18.6 % (11.6-14.6)
[2022-01-02 21:18] LABS: CHLORIDE 102 mEq/L (98-107)
[2022-01-02 21:27] LABS: ETHANOL BLOOD < 10 mg/dL
[2022-01-02 21:29] LABS: CARBAMAZEPINE < 0.5 ug/mL (4-12); VALPROIC ACID < 3.0 ug/mL (50-100)
[2022-01-02] MEDS ORDERED: DOXY100C5 MT (23:19)
[2022-01-02 23:49] LABS: CLARITY URINE CLEAR (CLEAR); COLOR URINE YELLOW (YELLOW); KETONES URINE TRACE (NEGATIVE); LEUKOCYTE ESTERASE URINE TRACE (NEGATIVE); NITRITE URINE NEGATIVE (NEGATIVE); OCCULT BLOOD URINE NEGATIVE (NEGATIVE); PROTEIN URINE NEGATIVE (NEGATIVE); SPECIFIC GRAVITY URINE 1.029 (1.005-1.030)
[2022-01-03 00:12] LABS: *AMPHETAMINES SCREEN URINE NEGATIVE (NEGATIVE); *BARBITURATES SCREEN URINE NEGATIVE (NEGATIVE); *BENZODIAZEPINES SCREEN URINE NEGATIVE (NEGATIVE); *COCAINE SCREEN URINE PRESUMTIVE POSITIVE (NEGATIVE); CANNABINOID URINE SCREEN NEGATIVE (NEGATIVE); METHADONE URINE SCREEN NEGATIVE (NEGATIVE); OPIATES URINE SCREEN NEGATIVE (NEGATIVE); PHENCYCLIDINE URINE SCREEN NEGATIVE (NEGATIVE)
[2022-01-03 05:00] VITALS: BP 131/68
[2022-01-05 06:12] LABS: NEISSERIA GONORRHOEAE NAA Negative (Negative)
== END 2022-01-03 10:15 | disposition home or self-care (01) ==
LOC: ER 19:13
DX: R45.851 Suicidal ideations (principal); R10.30 Lower abdominal pain, unspecified; F20.9 Schizophrenia, unspecified; F31.9 Bipolar disorder, unspecified; Z20.822 Contact with and (suspected) exposure to COVID-19; N89.8 Other specified noninflammatory disorders of vagina; R11.2 Nausea with vomiting, unspecified; D64.9 Anemia, unspecified; N83.202 Unspecified ovarian cyst, left side; Z20.2 Contact with and (suspected) exposure to infections with a predominantly sexual mode of transmission; G40.909 Epilepsy, unspecified, not intractable, without status epilepticus; F14.90 Cocaine use, unspecified, uncomplicated; Z79.899 Other long term (current) drug therapy
CPT/HCPCS: 36415; 74176; 76830; 76856; 80053; 80156; 80165; 80184; 80185; 80305; 80307; 80320; 80329; 81003; 83690; 85025; 87210; 87491; 87591; 96365; 96367; 96375; 99285; C9803; J0696; J1885; J2405; J3490; J7030; J7060; U0003; U0005; G0480

== ENCOUNTER 2022-01-07 00:02 | Emergency (ER) | payer OTHER ==
[~2022-01-07] VITALS: Ht 154.9 cm; Wt 68.0 kg
[~2022-01-07 00:02] MED LIST changes: +DOXY100C5 MT
[2022-01-07] MEDS ORDERED: DIPH25CA83 MT (00:52)
[2022-01-07 00:56] VITALS: BP 142/86
== END 2022-01-07 04:25 | disposition home or self-care (01) ==
LOC: ER 00:02
DX: L50.9 Urticaria, unspecified (principal)
CPT/HCPCS: 99283

== ENCOUNTER 2022-02-22 12:40 | Emergency (ER) | payer OTHER ==
[~2022-02-22] VITALS: Ht 160 cm; Wt 71.0 kg
[~2022-02-22 12:40] MED LIST changes: +DIPH25CA83 MT
[2022-02-22] MEDS ORDERED: KETOROLAC 30MG/ML VIAL IV ONE (14:30)
[2022-02-22 14:45] VITALS: BP 155/84
[2022-02-22] MEDS ORDERED: TOPUD MT (15:02)
== END 2022-02-22 15:09 | disposition left against medical advice (07) ==
LOC: ER 12:40
DX: R07.89 Other chest pain (principal); R03.0 Elevated blood-pressure reading, without diagnosis of hypertension; I50.9 Heart failure, unspecified; G40.909 Epilepsy, unspecified, not intractable, without status epilepticus; I25.2 Old myocardial infarction
CPT/HCPCS: 71045; 93005; 96374; 99283; J1885

== ENCOUNTER 2022-07-07 21:24 | Emergency (ER) | payer MEDICAID, OTHER ==
[~2022-07-07] VITALS: Ht 157.5 cm; Wt 67.0 kg
[~2022-07-07 21:24] MED LIST changes: +TOPUD MT
[2022-07-08] MEDS ORDERED: ACET-2708 MT (05:51)
[2022-07-08] MEDS ORDERED: LIDOCAINE 5% PATCH TOP SCH (06:00)
[2022-07-08] MEDS ORDERED: LIDOCAINE 5% PATCH TOP NR (06:00)
[2022-07-08] MEDS ORDERED: ACETAMINOPHEN 325MG TABLET PO ONE (06:00)
[2022-07-08 07:08] LABS: CHLORIDE 102 mEq/L (98-107)
[2022-07-08 07:10] LABS: BASOPHILS % 0.4 % (0.0-2.0); EOSINOPHILS % 2.3 % (0.0-5.0); HEMATOCRIT. 34.1 % (36.0-48.0); HEMOGLOBIN. 11.1 g/dL (12.0-16.0); LYMPHOCYTES % 44.1 % (20.0-50.0); MEAN CORPUSCULAR HEMOGLOBIN 26.1 pg (28.0-32.0); MEAN CORPUSCULAR VOLUME 80.6 fL (81.0-99.0); MEAN PLATELET VOLUME 7.8 fl (7.4-10.4); MONOCYTES % 12.7 % (2.0-8.0); NEUTROPHILS % 40.5 % (40.0-76.0); PLATELET 219 x1000/uL (130-400); RED BLOOD CELL COUNT 4.23 mill/uL (4.2-5.4); RED CELL DISTRIBUTION WIDTH 18.7 % (11.6-14.6)
[2022-07-08 07:22] LABS: CLARITY URINE CLEAR (CLEAR); COLOR URINE YELLOW (YELLOW); KETONES URINE TRACE (NEGATIVE); LEUKOCYTE ESTERASE URINE NEGATIVE (NEGATIVE); NITRITE URINE NEGATIVE (NEGATIVE); OCCULT BLOOD URINE NEGATIVE (NEGATIVE); PROTEIN URINE 1+ (NEGATIVE); SPECIFIC GRAVITY URINE 1.029 (1.005-1.030)
[2022-07-08 08:03] VITALS: BP 148/88
== END 2022-07-08 08:06 | disposition home or self-care (01) ==
LOC: ER 21:30
DX: R25.2 Cramp and spasm (principal); R53.83 Other fatigue
CPT/HCPCS: 36415; 80048; 81003; 85025; 99283

== ENCOUNTER 2022-09-15 19:05 | Emergency (ER) | payer OTHER ==
[~2022-09-15] VITALS: Ht 165.1 cm; Wt 54.0 kg
[~2022-09-15 19:05] MED LIST changes: +ACET-2708 MT
[2022-09-15 22:15] LABS: CLARITY URINE CLEAR (CLEAR); COLOR URINE YELLOW (YELLOW); KETONES URINE NEGATIVE (NEGATIVE); LEUKOCYTE ESTERASE URINE TRACE (NEGATIVE); NITRITE URINE NEGATIVE (NEGATIVE); OCCULT BLOOD URINE NEGATIVE (NEGATIVE); PROTEIN URINE NEGATIVE (NEGATIVE); SPECIFIC GRAVITY URINE 1.007 (1.005-1.030)
[2022-09-15] MEDS ORDERED: SODIUM CHLORIDE 0.9% 1,000 ML IV ONE (22:30)
[2022-09-15 23:31] LABS: *AMPHETAMINES SCREEN URINE NEGATIVE (NEGATIVE); *BARBITURATES SCREEN URINE NEGATIVE (NEGATIVE); *BENZODIAZEPINES SCREEN URINE NEGATIVE (NEGATIVE); *COCAINE SCREEN URINE PRESUMTIVE POSITIVE (NEGATIVE); CANNABINOID URINE SCREEN NEGATIVE (NEGATIVE); METHADONE URINE SCREEN NEGATIVE (NEGATIVE); OPIATES URINE SCREEN NEGATIVE (NEGATIVE); PHENCYCLIDINE URINE SCREEN NEGATIVE (NEGATIVE)
[2022-09-16 11:40] VITALS: BP 160/88
== END 2022-09-16 12:06 | disposition home or self-care (01) ==
LOC: ER 19:05
DX: F14.10 Cocaine abuse, uncomplicated (principal); R41.82 Altered mental status, unspecified; I50.9 Heart failure, unspecified; Z79.899 Other long term (current) drug therapy
CPT/HCPCS: 70450; 71045; 80305; 81003; 82962; 93005; 96360; 99285; J7030; Z7610

== ENCOUNTER 2022-09-25 08:26 | Emergency (ER) | payer OTHER ==
[~2022-09-25] VITALS: Ht 165.1 cm; Wt 64.0 kg
[2022-09-25 09:54] LABS: BASOPHILS % 0.6 % (0.0-2.0); EOSINOPHILS % 1.9 % (0.0-5.0); HEMATOCRIT. 32.8 % (36.0-48.0); HEMOGLOBIN. 10.9 g/dL (12.0-16.0); LYMPHOCYTES % 38.2 % (20.0-50.0); MEAN CORPUSCULAR HEMOGLOBIN 27.1 pg (28.0-32.0); MEAN CORPUSCULAR VOLUME 81.8 fL (81.0-99.0); MEAN PLATELET VOLUME 7.9 fl (7.4-10.4); MONOCYTES % 10.3 % (2.0-8.0); PLATELET 223 x1000/uL (130-400); RED BLOOD CELL COUNT 4.01 mill/uL (4.2-5.4)
[2022-09-25 09:58] LABS: CHLORIDE 103 mEq/L (98-107)
[2022-09-25] MEDS ORDERED: MORPHINE SULFATE 4 MG/ML CPJ (NOT FOR IM USE) IV ONE (11:15)
[2022-09-25 12:08] VITALS: BP 130/72
== END 2022-09-25 11:36 | disposition left against medical advice (07) ==
LOC: ER 08:26 → CANBEDREQ 11:41
DX: R07.89 Other chest pain (principal); I11.0 Hypertensive heart disease with heart failure; I50.9 Heart failure, unspecified; E11.9 Type 2 diabetes mellitus without complications; Z79.899 Other long term (current) drug therapy
CPT/HCPCS: 36415; 71045; 80053; 83880; 84484; 85025; 93005; 99285; Z7610

== ENCOUNTER 2022-10-09 10:50 | Emergency (ER) | payer OTHER ==
[~2022-10-09] VITALS: Ht 162.6 cm; Wt 70.0 kg
[2022-10-09 13:57] LABS: BASOPHILS % 0.4 % (0.0-2.0); EOSINOPHILS % 1.3 % (0.0-5.0); HEMATOCRIT. 32.2 % (36.0-48.0); HEMOGLOBIN. 10.5 g/dL (12.0-16.0); LYMPHOCYTES % 45.8 % (20.0-50.0); MEAN CORPUSCULAR VOLUME 82.2 fL (81.0-99.0); MEAN PLATELET VOLUME 7.8 fl (7.4-10.4); MONOCYTES % 9.1 % (2.0-8.0); NEUTROPHILS % 43.4 % (40.0-76.0); PLATELET 237 x1000/uL (130-400); RED BLOOD CELL COUNT 3.91 mill/uL (4.2-5.4)
[2022-10-09 14:05] LABS: CHLORIDE 108 mEq/L (98-107)
[2022-10-09 16:45] VITALS: BP 142/88
== END 2022-10-09 16:46 | disposition home or self-care (01) ==
LOC: ER 10:50
DX: R53.83 Other fatigue (principal); R51.9 Headache, unspecified; I11.0 Hypertensive heart disease with heart failure; I50.9 Heart failure, unspecified; I48.91 Unspecified atrial fibrillation; E11.9 Type 2 diabetes mellitus without complications; F14.10 Cocaine abuse, uncomplicated; Z79.899 Other long term (current) drug therapy
CPT/HCPCS: 36415; 71045; 80053; 83880; 85025; 93005; 99285

== ENCOUNTER 2022-10-09 21:35 | Emergency (ER) | payer OTHER ==
[~2022-10-09] VITALS: Ht 162.6 cm; Wt 69.1 kg
[2022-10-09 22:45] VITALS: BP 125/67; PULSE 56; RESP 18; TEMP 97.2; O2SAT 100
[2022-10-09 23:09] LABS: EOSINOPHILS % 0.7 % (0.0-5.0); HEMATOCRIT. 33.3 % (36.0-48.0); HEMOGLOBIN. 10.9 g/dL (12.0-16.0); LYMPHOCYTES % 54.9 % (20.0-50.0); MEAN CORPUSCULAR HEMOGLOBIN 26.6 pg (28.0-32.0); MEAN CORPUSCULAR VOLUME 81.6 fL (81.0-99.0); MEAN PLATELET VOLUME 7.6 fl (7.4-10.4); MONOCYTES % 7.4 % (2.0-8.0); PLATELET 239 x1000/uL (130-400); RED BLOOD CELL COUNT 4.08 mill/uL (4.2-5.4); RED CELL DISTRIBUTION WIDTH 18.9 % (11.6-14.6)
[2022-10-09 23:22] LABS: CHLORIDE 108 mEq/L (98-107)
[2022-10-10 00:12] LABS: HCG SCREEN NEGATIVE
== END 2022-10-10 08:10 | disposition left against medical advice (07) ==
LOC: ER 21:35
DX: R45.851 Suicidal ideations (principal); F32.A Depression, unspecified; I25.10 Atherosclerotic heart disease of native coronary artery without angina pectoris; E11.9 Type 2 diabetes mellitus without complications; I11.0 Hypertensive heart disease with heart failure; I50.9 Heart failure, unspecified; I48.91 Unspecified atrial fibrillation; F14.90 Cocaine use, unspecified, uncomplicated; F11.90 Opioid use, unspecified, uncomplicated; Z79.84 Long term (current) use of oral hypoglycemic drugs; Z79.82 Long term (current) use of aspirin; Z79.899 Other long term (current) drug therapy; Z20.822 Contact with and (suspected) exposure to COVID-19
CPT/HCPCS: 36415; 80053; 80307; 80329; 84703; 85025; 87426; 99284; C9803

== ENCOUNTER 2022-12-18 18:00 | Emergency (ER) | payer OTHER ==
[~2022-12-18] VITALS: Ht 162.6 cm; Wt 68.5 kg
[2022-12-18 18:19] VITALS: O2SAT 98
[2022-12-18 20:57] LABS: BASOPHILS % 0.9 % (0.0-2.0); EOSINOPHILS % 2.1 % (0.0-5.0); HEMOGLOBIN. 9.9 g/dL (12.0-16.0); LYMPHOCYTES % 34.8 % (20.0-50.0); MEAN CORPUSCULAR HEMOGLOBIN 26.9 pg (28.0-32.0); MEAN CORPUSCULAR VOLUME 83.8 fL (81.0-99.0); MEAN PLATELET VOLUME 8.2 fl (7.4-10.4); MONOCYTES % 11.1 % (2.0-8.0); NEUTROPHILS % 51.1 % (40.0-76.0); PLATELET 251 x1000/uL (130-400); RED CELL DISTRIBUTION WIDTH 19.2 % (11.6-14.6); WHITE BLOOD COUNT 4.8 x1000/uL (4.5-11.0)
[2022-12-18 21:09] LABS: HCG SCREEN NEGATIVE
[2022-12-18 21:11] LABS: CHLORIDE 99 mEq/L (98-107); INDEX HEMOLYSI 2 (1-3); INDEX ICTERIC 1 (1-4); INDEX LIPEMIC 1 (1-3); POTASSIUM 4.4 mEq/L (3.5-5.1); SODIUM 133 mEq/L (136-145)
[2022-12-18 21:29] LABS: ACETAMINOPHEN <2 ug/mL ug/mL (10-30); ALANINE AMINOTRANSFERASE 33 IU/L (13-61); ALBUMIN 3.1 g/dL (3.4-5.0); ASPARTATE AMINOTRANSFERASE 31 IU/L (15-37); BILIRUBIN TOTAL 0.1 mg/dL (0.1-1.0); CALCIUM 8.7 mg/dL (8.5-10.1); CARBON DIOXIDE 27 mEq/L (21-32); CREATININE 0.7 mg/dL (0.6-1.3); ETHANOL BLOOD < 10 mg/dL (-10); GLUCOSE 248 mg/dL (70-105); PROTEIN TOTAL 6.9 g/dL (6.0-8.3); UREA NITROGEN BLOOD 16 mg/dL (7-21)
[2022-12-19 01:34] LABS: CLARITY URINE CLEAR (CLEAR); COLOR URINE YELLOW (YELLOW); GLUCOSE URINE NEGATIVE (NEGATIVE); KETONES URINE NEGATIVE (NEGATIVE); LEUKOCYTE ESTERASE URINE 1+ (NEGATIVE); NITRITE URINE NEGATIVE (NEGATIVE); OCCULT BLOOD URINE NEGATIVE (NEGATIVE); PH URINE 6.5 (4.5-8.0); PROTEIN URINE TRACE (NEGATIVE); SPECIFIC GRAVITY URINE 1.026 (1.005-1.030)
[2022-12-19 01:45] LABS: *AMPHETAMINES SCREEN URINE PRESUMTIVE POSITIVE (NEGATIVE); *BARBITURATES SCREEN URINE NEGATIVE (NEGATIVE); *BENZODIAZEPINES SCREEN URINE NEGATIVE (NEGATIVE); *COCAINE SCREEN URINE PRESUMTIVE POSITIVE (NEGATIVE); CANNABINOID URINE SCREEN NEGATIVE (NEGATIVE); ECSTASY MDMA SCREEN URINE NEGATIVE (NEGATIVE); METHADONE URINE SCREEN NEGATIVE (NEGATIVE); OPIATES URINE SCREEN NEGATIVE (NEGATIVE); PHENCYCLIDINE URINE SCREEN NEGATIVE (NEGATIVE)
[2022-12-19 02:59] LABS: RBC URINE 0-2 /hpf (0-2); SQUAMOUS EPITHELIAL CELL URINE 3+ /lpf (RARE/1+)
[2022-12-19 03:00] LABS: BACTERIA URINE 1+
[2022-12-19] MEDS ORDERED: NITROFURANTOIN 100MG M/M CAPSULE PO SCH (09:00)
[2022-12-19] MEDS ORDERED: NITR-87 MT (09:24)
[2022-12-19 10:55] VITALS: BP 134/84; PULSE 72; RESP 16; TEMP 98
== END 2022-12-19 10:56 | disposition home or self-care (01) ==
LOC: ER 18:00
DX: R45.851 Suicidal ideations (principal); N39.0 Urinary tract infection, site not specified; F14.10 Cocaine abuse, uncomplicated; Z98.890 Other specified postprocedural states; Z98.51 Tubal ligation status; Z79.899 Other long term (current) drug therapy
CPT/HCPCS: 36415; 80053; 80305; 80307; 80320; 80329; 81003; 84443; 84703; 85025; 99283; G0480

== ENCOUNTER 2023-01-04 08:12 | Emergency (ER) | payer OTHER ==
[~2023-01-04] VITALS: Ht 162.6 cm; Wt 58.0 kg
[~2023-01-04 08:12] MED LIST changes: +NITR-87 MT
[2023-01-04 08:50] VITALS: O2SAT 99
[2023-01-04 14:54] LABS: BASOPHILS % 0.5 % (0.0-2.0); EOSINOPHILS % 3.3 % (0.0-5.0); HEMATOCRIT. 35.7 % (36.0-48.0); HEMOGLOBIN. 11.5 g/dL (12.0-16.0); LYMPHOCYTES % 41.6 % (20.0-50.0); MEAN CORPUSCULAR HEMOGLOBIN 26.9 pg (28.0-32.0); MEAN CORPUSCULAR HGB CONC 32.4 g/dL (31.0-37.0); MEAN PLATELET VOLUME 7.9 fl (7.4-10.4); MONOCYTES % 12.4 % (2.0-8.0); NEUTROPHILS % 42.2 % (40.0-76.0); PLATELET 275 x1000/uL (130-400); WHITE BLOOD COUNT 5.7 x1000/uL (4.5-11.0)
[2023-01-04 15:19] LABS: CHLORIDE 105 mEq/L (98-107); INDEX HEMOLYSI 1 (1-3); INDEX ICTERIC 1 (1-4); INDEX LIPEMIC 1 (1-3); POTASSIUM 3.8 mEq/L (3.5-5.1); SODIUM 134 mEq/L (136-145)
[2023-01-04 15:25] LABS: ACETAMINOPHEN <2 ug/mL ug/mL (10-30); CALCIUM 9.2 mg/dL (8.5-10.1); CARBON DIOXIDE 29 mEq/L (21-32); CREATININE 0.7 mg/dL (0.6-1.3); ETHANOL BLOOD < 10 mg/dL (-10); GLUCOSE 226 mg/dL (70-105); UREA NITROGEN BLOOD 8 mg/dL (7-21)
[2023-01-04] MEDS ORDERED: PHEN100C4 MT (16:20)
[2023-01-04 16:30] VITALS: BP 126/98; PULSE 71; RESP 15; TEMP 97.4
== END 2023-01-04 16:32 | disposition home or self-care (01) ==
LOC: ER 08:12
DX: R45.851 Suicidal ideations (principal); I50.9 Heart failure, unspecified; F32.9 Major depressive disorder, single episode, unspecified; Z98.51 Tubal ligation status; Z98.890 Other specified postprocedural states; Z79.899 Other long term (current) drug therapy
CPT/HCPCS: 36415; 80048; 80307; 80320; 80329; 85025; 99285; G0480

== ENCOUNTER 2023-01-14 12:34 | Emergency (ER) | payer OTHER ==
[~2023-01-14] VITALS: Ht 154.9 cm; Wt 67.0 kg
[~2023-01-14 12:34] MED LIST changes: +PHEN100C4 MT
[2023-01-14 12:38] VITALS: BP 132/76; RESP 16; TEMP 98.7; O2SAT 100
[2023-01-14 12:40] VITALS: PULSE 95
[2023-01-14 13:14] LABS: BASOPHILS % 0.4 % (0.0-2.0); EOSINOPHILS % 1.9 % (0.0-5.0); HEMATOCRIT. 28.5 % (36.0-48.0); HEMOGLOBIN. 9.1 g/dL (12.0-16.0); LYMPHOCYTES % 28.8 % (20.0-50.0); MEAN CORPUSCULAR HGB CONC 31.8 g/dL (31.0-37.0); MEAN CORPUSCULAR VOLUME 81.7 fL (81.0-99.0); MEAN PLATELET VOLUME 7.9 fl (7.4-10.4); MONOCYTES % 8.7 % (2.0-8.0); NEUTROPHILS % 60.2 % (40.0-76.0); PLATELET 229 x1000/uL (130-400); RED BLOOD CELL COUNT 3.48 mill/uL (4.2-5.4); RED CELL DISTRIBUTION WIDTH 18.3 % (11.6-14.6); WHITE BLOOD COUNT 5.2 x1000/uL (4.5-11.0)
[2023-01-14 13:29] LABS: INR 1.1; PROTHROMBIN TIME 12.2 sec (9.6-11.0)
[2023-01-14 13:36] LABS: CHLORIDE 100 mEq/L (98-107); INDEX HEMOLYSI 1 (1-3); INDEX ICTERIC 1 (1-4); INDEX LIPEMIC 1 (1-3); SODIUM 134 mEq/L (136-145)
[2023-01-14 13:47] LABS: ALANINE AMINOTRANSFERASE 28 IU/L (13-61); ALBUMIN 3.4 g/dL (3.4-5.0); ASPARTATE AMINOTRANSFERASE 21 IU/L (15-37); BILIRUBIN TOTAL 0.2 mg/dL (0.1-1.0); CALCIUM 8.5 mg/dL (8.5-10.1); CARBON DIOXIDE 26 mEq/L (21-32); CREATININE 0.5 mg/dL (0.6-1.3); GLUCOSE 248 mg/dL (70-105); NT PRO B-TYPE NATRIURETIC PEP 100 pg/mL (5-125); PROTEIN TOTAL 6.9 g/dL (6.0-8.3); UREA NITROGEN BLOOD 12 mg/dL (7-21)
[2023-01-14 13:53] LABS: TROPONIN I HIGH SENSITIVITY 198 ng/L (<54)
== END 2023-01-14 17:00 | disposition left against medical advice (07) ==
LOC: ER 13:15
DX: R10.9 Unspecified abdominal pain (principal); Z53.21 Procedure and treatment not carried out due to patient leaving prior to being seen by health care provider
CPT/HCPCS: 36415; 71045; 80053; 83880; 84484; 85025; 93005; 99281

== ENCOUNTER 2023-02-09 00:16 | Emergency (ER) | payer OTHER ==
[~2023-02-09] VITALS: Ht 162.6 cm; Wt 68.0 kg
[2023-02-09 00:37] VITALS: O2SAT 100
[2023-02-09] MEDS ORDERED: LEVETIRACETAM 500MG/5ML CUP PO ONE (03:00)
[2023-02-09 04:14] LABS: BASOPHILS % 0.5 % (0.0-2.0); EOSINOPHILS % 3.4 % (0.0-5.0); HEMATOCRIT. 29.5 % (36.0-48.0); HEMOGLOBIN. 9.6 g/dL (12.0-16.0); MEAN CORPUSCULAR HEMOGLOBIN 26.7 pg (28.0-32.0); MEAN CORPUSCULAR HGB CONC 32.5 g/dL (31.0-37.0); MEAN CORPUSCULAR VOLUME 82.4 fL (81.0-99.0); MEAN PLATELET VOLUME 8.3 fl (7.4-10.4); MONOCYTES % 11.5 % (2.0-8.0); NEUTROPHILS % 31.6 % (40.0-76.0); PLATELET 200 x1000/uL (130-400); RED BLOOD CELL COUNT 3.58 mill/uL (4.2-5.4); WHITE BLOOD COUNT 4.5 x1000/uL (4.5-11.0)
[2023-02-09 04:25] LABS: CHLORIDE 106 mEq/L (98-107); INDEX HEMOLYSI 1 (1-3); INDEX ICTERIC 1 (1-4); INDEX LIPEMIC 1 (1-3); POTASSIUM 4.2 mEq/L (3.5-5.1); SODIUM 137 mEq/L (136-145)
[2023-02-09 04:32] LABS: ACETAMINOPHEN < 2 ug/mL (10-30); ALANINE AMINOTRANSFERASE 31 IU/L (13-61); ALBUMIN 3.6 g/dL (3.4-5.0); ASPARTATE AMINOTRANSFERASE 27 IU/L (15-37); BILIRUBIN TOTAL 0.2 mg/dL (0.1-1.0); CALCIUM 8.5 mg/dL (8.5-10.1); CARBON DIOXIDE 28 mEq/L (21-32); CREATINE KINASE 384 IU/L (26-192); CREATININE 0.6 mg/dL (0.6-1.3); ETHANOL BLOOD < 10 mg/dL (<10); GLUCOSE 105 mg/dL (70-105); PHENYTOIN 1.1 ug/mL (10-20); UREA NITROGEN BLOOD 15 mg/dL (7-21)
[2023-02-09 06:37] LABS: CLARITY URINE CLEAR (CLEAR); COLOR URINE YELLOW (YELLOW); GLUCOSE URINE NEGATIVE (NEGATIVE); KETONES URINE NEGATIVE (NEGATIVE); LEUKOCYTE ESTERASE URINE NEGATIVE (NEGATIVE); NITRITE URINE NEGATIVE (NEGATIVE); OCCULT BLOOD URINE NEGATIVE (NEGATIVE); PH URINE 6.5 (4.5-8.0); PROTEIN URINE NEGATIVE (NEGATIVE); SPECIFIC GRAVITY URINE 1.015 (1.005-1.030)
[2023-02-09] MEDS ORDERED: FLUCONAZOLE 100MG TABLET PO NR (07:30)
[2023-02-09 08:02] LABS: *AMPHETAMINES SCREEN URINE NEGATIVE (NEGATIVE); *BARBITURATES SCREEN URINE NEGATIVE (NEGATIVE); *BENZODIAZEPINES SCREEN URINE NEGATIVE (NEGATIVE); *COCAINE SCREEN URINE PRESUMTIVE POSITIVE (NEGATIVE); CANNABINOID URINE SCREEN NEGATIVE (NEGATIVE); ECSTASY MDMA SCREEN URINE NEGATIVE (NEGATIVE); OPIATES URINE SCREEN NEGATIVE (NEGATIVE); PHENCYCLIDINE URINE SCREEN NEGATIVE (NEGATIVE)
[2023-02-09] MEDS: LEVETIRACETAM 500MG TABLET PO SCH ×2 (09:03→18:50)
[2023-02-09] MEDS: PHENYTOIN SODIUM EXTENDED 100MG CAPSULE PO SCH ×2 (09:03→18:50)
[2023-02-09] MEDS ORDERED: ACETAMINOPHEN 325MG TABLET PO ONE (13:00)
[2023-02-10] MEDS ORDERED: IBUPROFEN 600MG TABLET PO NR (03:00)
[2023-02-10] MEDS: LEVETIRACETAM 500MG TABLET PO SCH (09:42)
[2023-02-10] MEDS ORDERED: PHEN100C4 PO (13:37)
[2023-02-10] MEDS ORDERED: LEVE1000 PO (13:37)
[2023-02-10 14:05] VITALS: BP 146/73; PULSE 76; RESP 18; TEMP 98.2
== END 2023-02-10 14:06 | disposition home or self-care (01) ==
LOC: ER 00:16
DX: R45.851 Suicidal ideations (principal); Z20.822 Contact with and (suspected) exposure to COVID-19; Z86.59 Personal history of other mental and behavioral disorders; Z79.899 Other long term (current) drug therapy; Z98.890 Other specified postprocedural states; Z98.51 Tubal ligation status
CPT/HCPCS: 80053; 80305; 81003; 80307; 80329; 80320; 82550; 80185; 85025; 36415; 99285; 87426; C9803; G0480

== ENCOUNTER 2023-03-21 20:27 | Emergency (ER) | payer OTHER ==
[~2023-03-21] VITALS: Ht 162.6 cm; Wt 68.9 kg
[~2023-03-21 20:27] MED LIST changes: +LEVE1000 PO
[2023-03-21 21:05] VITALS: BP 126/75; RESP 20; TEMP 98.3; O2SAT 99
[2023-03-21 21:10] VITALS: PULSE 84
[2023-03-21 23:41] LABS: BASOPHILS % 0.5 % (0.0-2.0); EOSINOPHILS % 1.3 % (0.0-5.0); HEMATOCRIT. 35.8 % (36.0-48.0); HEMOGLOBIN. 11.7 g/dL (12.0-16.0); LYMPHOCYTES % 52.1 % (20.0-50.0); MEAN CORPUSCULAR HEMOGLOBIN 27.3 pg (28.0-32.0); MEAN CORPUSCULAR HGB CONC 32.7 g/dL (31.0-37.0); MEAN CORPUSCULAR VOLUME 83.4 fL (81.0-99.0); MEAN PLATELET VOLUME 8.4 fl (7.4-10.4); MONOCYTES % 11.6 % (2.0-8.0); NEUTROPHILS % 34.5 % (40.0-76.0); PLATELET 218 x1000/uL (130-400); RED BLOOD CELL COUNT 4.29 mill/uL (4.2-5.4); RED CELL DISTRIBUTION WIDTH 19.6 % (11.6-14.6); WHITE BLOOD COUNT 5.9 x1000/uL (4.5-11.0)
[2023-03-22 00:01] LABS: ALANINE AMINOTRANSFERASE 19 IU/L (10-49); ALBUMIN 4.8 g/dL (3.2-4.8); ASPARTATE AMINOTRANSFERASE 36 IU/L (<34); BILIRUBIN TOTAL 0.3 mg/dL (0.1-1.0); CALCIUM 9.5 mg/dL (8.7-10.4); CARBON DIOXIDE 30 mEq/L (21-32); CHLORIDE 102 mEq/L (98-107); CREATININE 0.9 mg/dL (0.6-1.0); GLUCOSE 117 mg/dL (70-105); POTASSIUM 3.9 mEq/L (3.5-5.1); PROTEIN TOTAL 7.4 g/dL (6.0-8.3); SODIUM 140 mEq/L (136-145); UREA NITROGEN BLOOD 24 mg/dL (9-23)
[2023-03-22 00:04] LABS: TROPONIN I HIGH SENSITIVITY 194 ng/L (3.0-34)
[2023-03-22] MEDS ORDERED: PHENYTOIN SODIUM EXTENDED 100MG CAPSULE PO NR (00:15)
[2023-03-22] MEDS ORDERED: LEVETIRACETAM 500MG/5ML CUP PO NR (00:15)
[2023-03-22 00:25] LABS: PHENYTOIN 10.7 ug/mL (10-20)
[2023-03-22 00:38] LABS: ETHANOL BLOOD < 10 mg/dL (<10)
[2023-03-22 02:05] LABS: TROPONIN I HIGH SENSITIVITY 200 ng/L (3.0-34)
[2023-03-22] MEDS ORDERED: PHEN100C4 PO (04:00)
[2023-03-22] MEDS ORDERED: KEPP500 PO (04:00)
== END 2023-03-22 04:12 | disposition home or self-care (01) ==
LOC: ER 20:27
DX: I20.89 Other forms of angina pectoris (principal); G40.909 Epilepsy, unspecified, not intractable, without status epilepticus; I50.9 Heart failure, unspecified; F32.A Depression, unspecified; F14.90 Cocaine use, unspecified, uncomplicated; F25.9 Schizoaffective disorder, unspecified; Z98.890 Other specified postprocedural states; Z98.51 Tubal ligation status; Z79.899 Other long term (current) drug therapy; R79.89 Other specified abnormal findings of blood chemistry
CPT/HCPCS: 36415; 71045; 80053; 80185; 80320; 84484; 85025; 93005; 99285; G0480

== ENCOUNTER 2023-04-20 16:28 | Emergency (ER) | payer OTHER ==
[~2023-04-20] VITALS: Ht 162.6 cm; Wt 69.0 kg
[2023-04-20 16:57] VITALS: O2SAT 100
[2023-04-20 18:26] LABS: BASOPHILS % 0.5 % (0.0-2.0); HEMATOCRIT. 31.2 % (36.0-48.0); HEMOGLOBIN. 10.1 g/dL (12.0-16.0); LYMPHOCYTES % 38.7 % (20.0-50.0); MEAN CORPUSCULAR HEMOGLOBIN 26.3 pg (28.0-32.0); MEAN CORPUSCULAR HGB CONC 32.4 g/dL (31.0-37.0); MEAN PLATELET VOLUME 7.3 fl (7.4-10.4); MONOCYTES % 10.9 % (2.0-8.0); NEUTROPHILS % 48.9 % (40.0-76.0); PLATELET 232 x1000/uL (130-400); RED BLOOD CELL COUNT 3.85 mill/uL (4.2-5.4); RED CELL DISTRIBUTION WIDTH 19.2 % (11.6-14.6); WHITE BLOOD COUNT 4.6 x1000/uL (4.5-11.0)
[2023-04-20 18:40] LABS: ALANINE AMINOTRANSFERASE 25 IU/L (10-49); ALBUMIN 4.1 g/dL (3.2-4.8); ASPARTATE AMINOTRANSFERASE 62 IU/L (<34); BILIRUBIN TOTAL 0.3 mg/dL (0.1-1.0); CALCIUM 9.2 mg/dL (8.7-10.4); CARBON DIOXIDE 33 mEq/L (21-32); CHLORIDE 99 mEq/L (98-107); CREATININE 0.9 mg/dL (0.6-1.0); GLUCOSE 165 mg/dL (70-105); POTASSIUM 4.5 mEq/L (3.5-5.1); PROTEIN TOTAL 7.2 g/dL (6.0-8.3); SODIUM 137 mEq/L (136-145); UREA NITROGEN BLOOD 28 mg/dL (9-23)
[2023-04-20 18:57] LABS: ETHANOL BLOOD < 10 mg/dL (<10)
[2023-04-20 20:20] LABS: CLARITY URINE CLEAR (CLEAR); COLOR URINE YELLOW (YELLOW); GLUCOSE URINE TRACE (NEGATIVE); KETONES URINE TRACE (NEGATIVE); LEUKOCYTE ESTERASE URINE TRACE (NEGATIVE); NITRITE URINE NEGATIVE (NEGATIVE); OCCULT BLOOD URINE NEGATIVE (NEGATIVE); PROTEIN URINE NEGATIVE (NEGATIVE)
[2023-04-20 20:36] LABS: *AMPHETAMINES SCREEN URINE PRESUMPTIVE POSITIVE (NEGATIVE); *BARBITURATES SCREEN URINE NEGATIVE (NEGATIVE); *BENZODIAZEPINES SCREEN URINE NEGATIVE (NEGATIVE); *COCAINE SCREEN URINE PRESUMPTIVE POSITIVE (NEGATIVE); CANNABINOID URINE SCREEN NEGATIVE (NEGATIVE); ECSTASY MDMA SCREEN URINE NEGATIVE (NEGATIVE); METHADONE URINE SCREEN Neg (NEGATIVE); OPIATES URINE SCREEN NEGATIVE (NEGATIVE); PHENCYCLIDINE URINE SCREEN NEGATIVE (NEGATIVE)
[2023-04-20 20:44] LABS: BACTERIA URINE TRACE; RBC URINE 0-2 /hpf (0-2); SQUAMOUS EPITHELIAL CELL URINE 1+ /lpf (RARE/1+)
[2023-04-21] MEDS ORDERED: PHENYTOIN SODIUM EXTENDED 100MG CAPSULE PO ONE (09:15)
[2023-04-21] MEDS ORDERED: FURO20TA4 PO (14:19)
[2023-04-21] MEDS ORDERED: LEVE500T19 PO (14:19)
[2023-04-21] MEDS ORDERED: RIVA10TA PO (14:19)
[2023-04-21] MEDS ORDERED: METO10TA3 PO (14:19)
[2023-04-21] MEDS ORDERED: PHEN100C12 PO (14:19)
[2023-04-21] MEDS ORDERED: PRIL20 PO (14:19)
[2023-04-21] MEDS ORDERED: BECL10.62 IH (14:24)
[2023-04-21] MEDS ORDERED: ALBU18HF2 PO (14:24)
[2023-04-21] MEDS ORDERED: OLAN7.5T18 PO (14:28)
[2023-04-21] MEDS ORDERED: CARSR60 PO (14:31)
[2023-04-21] MEDS ORDERED: QUET100T34 PO (14:31)
[2023-04-21] MEDS ORDERED: ARIP10TA56 PO (14:31)
[2023-04-21] MEDS ORDERED: ESCI5TAB16 PO (14:32)
[2023-04-21] MEDS ORDERED: QUET50TA23 PO (14:32)
[2023-04-21] MEDS ORDERED: FERR325T30 PO (14:32)
[2023-04-21] MEDS: SERTRALINE HCL 25MG TABLET PO SCH (14:43)
[2023-04-21] MEDS: LEVETIRACETAM 500MG TABLET PO SCH (21:32)
[2023-04-22] MEDS: SERTRALINE HCL 25MG TABLET PO SCH (09:00)
[2023-04-22] MEDS: LEVETIRACETAM 500MG TABLET PO SCH ×2 (09:00→22:51)
[2023-04-23] MEDS: SERTRALINE HCL 25MG TABLET PO SCH (09:00)
[2023-04-23] MEDS: LEVETIRACETAM 500MG TABLET PO SCH (09:00)
[2023-04-23 11:25] VITALS: BP 126/78; PULSE 80; RESP 14; TEMP 97.9
== END 2023-04-23 11:23 | disposition home or self-care (01) ==
LOC: ER 16:28
DX: R45.851 Suicidal ideations (principal); I11.0 Hypertensive heart disease with heart failure; I50.9 Heart failure, unspecified; Z79.899 Other long term (current) drug therapy; Z98.890 Other specified postprocedural states; Z98.51 Tubal ligation status; Z20.822 Contact with and (suspected) exposure to COVID-19; Z86.59 Personal history of other mental and behavioral disorders
CPT/HCPCS: 80053; 80305; 81003; 80320; 83880; 85025; 36415; 99285; 87426; C9803; G0480

== ENCOUNTER 2023-05-13 07:13 | Emergency (ER) | payer MEDICAID, OTHER ==
[~2023-05-13] VITALS: Ht 162.6 cm; Wt 64.0 kg
[~2023-05-13 07:13] MED LIST changes: -ABIL5 PO; -ACET-2708 MT; +ALBU18HF2 PO; -ALBU90AE INH; +ARIP10TA56 PO; +BECL10.62 IH; -CARI250T PO; +CARSR60 PO; -DIPH25CA83 MT; -DOXY100C5 MT; -FAMO20TA8 MT; +FERR325T30 PO; +FURO20TA4 PO; -IBUP-2029 MT; -KEPP500 PO; -LEVE1000 PO; +LEVE500T19 PO; -LISI10TA26 PO; -LORA2TAB95 PO; -METF-414 MT; +METO10TA3 PO; -METO25TA6 PO; -NITR-87 MT; +OLAN7.5T18 PO; +PHEN100C12 PO; -PHEN100C4 MT; -PHEN100C4 PO; +PRIL20 PO; +QUET100T34 PO; +QUET50TA23 PO; +RIVA10TA PO; -RIVA20TA PO; -TOPUD MT
[2023-05-13 08:01] VITALS: BP 161/79; PULSE 96; RESP 17; TEMP 98.8; O2SAT 99
[2023-05-13] MEDS ORDERED: LEVETIRACETAM 500MG TABLET PO ONE (08:15)
[2023-05-13 10:37] LABS: BASOPHILS % 0.6 % (0.0-2.0); EOSINOPHILS % 1.9 % (0.0-5.0); HEMATOCRIT. 29.5 % (36.0-48.0); HEMOGLOBIN. 9.3 g/dL (12.0-16.0); LYMPHOCYTES % 38.8 % (20.0-50.0); MEAN CORPUSCULAR HEMOGLOBIN 26.3 pg (28.0-32.0); MEAN CORPUSCULAR HGB CONC 31.7 g/dL (31.0-37.0); MEAN PLATELET VOLUME 7.7 fl (7.4-10.4); MONOCYTES % 13.4 % (2.0-8.0); NEUTROPHILS % 45.3 % (40.0-76.0); PLATELET 220 x1000/uL (130-400); RED BLOOD CELL COUNT 3.55 mill/uL (4.2-5.4); RED CELL DISTRIBUTION WIDTH 18.5 % (11.6-14.6); WHITE BLOOD COUNT 3.5 x1000/uL (4.5-11.0)
[2023-05-13 12:16] LABS: ALANINE AMINOTRANSFERASE 20 IU/L (10-49); ASPARTATE AMINOTRANSFERASE 24 IU/L (<34); BILIRUBIN TOTAL 0.2 mg/dL (0.1-1.0); CARBON DIOXIDE 24 mEq/L (21-32); CHLORIDE 104 mEq/L (98-107); CREATININE 0.7 mg/dL (0.6-1.0); GLUCOSE 250 mg/dL (70-105); PROTEIN TOTAL 6.8 g/dL (6.0-8.3); SODIUM 139 mEq/L (136-145); UREA NITROGEN BLOOD 8 mg/dL (9-23)
[2023-05-13 12:19] LABS: ETHANOL BLOOD < 10 mg/dL (<10); PHENYTOIN < 2.0 ug/mL (10-20)
[2023-05-13] MEDS ORDERED: PHENYTOIN SODIUM EXTENDED 100MG CAPSULE PO ONE (12:30)
== END 2023-05-13 14:11 | disposition home or self-care (01) ==
LOC: ER 07:13
DX: R10.9 Unspecified abdominal pain (principal); R56.9 Unspecified convulsions; F15.90 Other stimulant use, unspecified, uncomplicated; I50.9 Heart failure, unspecified; F32.A Depression, unspecified; F14.90 Cocaine use, unspecified, uncomplicated; Z98.51 Tubal ligation status; Z98.890 Other specified postprocedural states
CPT/HCPCS: 36415; 80053; 80185; 80320; 85025; 99283; G0480

== ENCOUNTER 2023-08-11 09:48 | Emergency (ER) | payer OTHER ==
[~2023-08-11] VITALS: Ht 167.6 cm; Wt 53.0 kg
[~2023-08-11 09:48] MED LIST changes: +KEPP500 PO; -PHEN100C12 PO
[2023-08-11 09:50] VITALS: O2SAT 100
[2023-08-11 11:54] LABS: CLARITY URINE CLOUDY (CLEAR); COLOR URINE YELLOW (YELLOW); GLUCOSE URINE 3+ (NEGATIVE); KETONES URINE TRACE (NEGATIVE); LEUKOCYTE ESTERASE URINE 1+ (NEGATIVE); NITRITE URINE NEGATIVE (NEGATIVE); OCCULT BLOOD URINE 2+ (NEGATIVE); PROTEIN URINE TRACE (NEGATIVE); SPECIFIC GRAVITY URINE 1.038 (1.005-1.030)
[2023-08-11 12:35] LABS: SQUAMOUS EPITHELIAL CELL URINE 1+ /lpf (RARE/1+)
[2023-08-11 12:36] LABS: BACTERIA URINE 1+
[2023-08-11] MEDS ORDERED: DOXY100C5 MT (13:13)
[2023-08-11] MEDS: CEFTRIAXONE SODIUM 500MG VIAL IM ONE (13:15)
[2023-08-11] MEDS: ACETAMINOPHEN 325MG TABLET PO ONE (13:15)
[2023-08-11] MEDS ORDERED: NITR100C MT (13:15)
[2023-08-11] MEDS: LIDOCAINE HCL/PF 1% 10 MG/ML 5ML VIAL INFIL ONE (14:00)
[2023-08-11 14:45] VITALS: BP 145/98; PULSE 98; RESP 18; TEMP 98
[2023-08-13 17:11] LABS: CHLAMYDIA TRACHOMATIS NAA Negative (Negative); NEISSERIA GONORRHOEAE NAA Negative (Negative)
== END 2023-08-11 15:35 | disposition home or self-care (01) ==
LOC: ER 10:08
DX: N76.0 Acute vaginitis (principal); A54.9 Gonococcal infection, unspecified; F20.9 Schizophrenia, unspecified; I50.9 Heart failure, unspecified; F15.90 Other stimulant use, unspecified, uncomplicated; F14.90 Cocaine use, unspecified, uncomplicated; Z98.890 Other specified postprocedural states; Z98.51 Tubal ligation status
CPT/HCPCS: 87491; 87591; 81003; 82962; 87210; 96372; 99284; J0696; J3490; Z7610

== ENCOUNTER 2023-11-05 17:05 | Emergency (ER) | payer OTHER ==
[~2023-11-05] VITALS: Ht 165.1 cm; Wt 68.0 kg
[~2023-11-05 17:05] MED LIST changes: +ALBU18HF2 IH; +IBUP-2029 MT; +KEPP500 MT; -KEPP500 PO; -LEVE500T19 PO; +METF-414 MT; -METO10TA3 PO; +PECT2.8L4 MM
[2023-11-05 17:12] VITALS: BP 136/91; PULSE 92; RESP 16; TEMP 98.6; O2SAT 99
[2023-11-05] MEDS ORDERED: HYDROCODONE/ACETAMINOPHEN 5/325MG TABLET PO STA (17:27)
[2023-11-05 18:14] LABS: BASOPHILS % 0.6 % (0.0-2.0); EOSINOPHILS % 2.9 % (0.0-5.0); HEMATOCRIT. 32.1 % (36.0-48.0); HEMOGLOBIN. 10.2 g/dL (12.0-16.0); LYMPHOCYTES % 37.1 % (20.0-50.0); MEAN CORPUSCULAR HEMOGLOBIN 26.5 pg (28.0-32.0); MEAN CORPUSCULAR HGB CONC 31.8 g/dL (31.0-37.0); MEAN CORPUSCULAR VOLUME 83.5 fL (81.0-99.0); MEAN PLATELET VOLUME 7.9 fl (7.4-10.4); MONOCYTES % 10.9 % (2.0-8.0); NEUTROPHILS % 48.5 % (40.0-76.0); PLATELET 217 x1000/uL (130-400); RED BLOOD CELL COUNT 3.84 mill/uL (4.2-5.4); RED CELL DISTRIBUTION WIDTH 18.9 % (11.6-14.6); WHITE BLOOD COUNT 4.5 x1000/uL (4.5-11.0)
[2023-11-05 18:54] LABS: TROPONIN I HIGH SENSITIVITY 221 ng/L (3.0-34)
[2023-11-05 20:46] LABS: CHLORIDE 105 mEq/L (98-107); POTASSIUM 4.1 mEq/L (3.5-5.1); SODIUM 140 mEq/L (136-145)
[2023-11-05 20:47] LABS: CARBON DIOXIDE 29 mEq/L (21-32)
[2023-11-05 20:48] LABS: CALCIUM 9.5 mg/dL (8.7-10.4)
[2023-11-05 20:52] LABS: CREATININE 0.9 mg/dL (0.6-1.0); GLUCOSE 188 mg/dL (70-105)
[2023-11-05 20:53] LABS: UREA NITROGEN BLOOD 22 mg/dL (9-23)
[2023-11-05 20:55] LABS: ETHANOL BLOOD < 10 mg/dL (<10); TROPONIN I HIGH SENSITIVITY 215 ng/L (3.0-34)
== END 2023-11-06 01:33 | disposition home or self-care (01) ==
LOC: ER 17:05
DX: F14.10 Cocaine abuse, uncomplicated (principal); I50.9 Heart failure, unspecified; F15.90 Other stimulant use, unspecified, uncomplicated; I11.0 Hypertensive heart disease with heart failure; F32.A Depression, unspecified; R51.9 Headache, unspecified; Z86.73 Personal history of transient ischemic attack (TIA), and cerebral infarction without residual deficits; Z98.890 Other specified postprocedural states; Z98.51 Tubal ligation status; Z85.9 Personal history of malignant neoplasm, unspecified
CPT/HCPCS: 36415; 70486; 74176; 80048; 80320; 84484; 85025; 99284; G0480

== ENCOUNTER 2024-08-16 02:08 | Emergency (ER) | payer OTHER ==
[~2024-08-16] VITALS: Ht 162.6 cm; Wt 70.0 kg
[~2024-08-16 02:08] MED LIST changes: -ARIP10TA56 PO; +ARIP10TA86 PO; +CYCL10TA21 PO; +GABA-1180 MT; -GABA-532 MT; +METF-416 MT; +OLAN5TAB6 PO; -OLAN7.5T18 PO; +OLAN7.5T50 PO; +RIVA20TA MT; +SERT50TA PO; +XAR15 PO
[2024-08-16 02:26] VITALS: TEMP 36.8; O2SAT 100
[2024-08-16 04:02] LABS: BASOPHILS % 0.5 % (0.0-2.0); EOSINOPHILS % 1.6 % (0.0-5.0); HEMATOCRIT. 34.5 % (36.0-48.0); HEMOGLOBIN. 11.2 g/dL (12.0-16.0); MEAN CORPUSCULAR HEMOGLOBIN 27.3 pg (28.0-32.0); MEAN CORPUSCULAR HGB CONC 32.6 g/dL (31.0-37.0); MEAN CORPUSCULAR VOLUME 83.8 fL (81.0-99.0); MEAN PLATELET VOLUME 7.5 fl (7.4-10.4); MONOCYTES % 10.4 % (2.0-8.0); NEUTROPHILS % 41.5 % (40.0-76.0); PLATELET 208 x1000/uL (130-400); RED BLOOD CELL COUNT 4.12 mill/uL (4.2-5.4); RED CELL DISTRIBUTION WIDTH 17.9 % (11.6-14.6); WHITE BLOOD COUNT 4.9 x1000/uL (4.5-11.0)
[2024-08-16 04:09] LABS: PROTHROMBIN TIME 10.4 sec (9.6-11.0)
[2024-08-16 04:12] LABS: CARBON DIOXIDE 27 mEq/L (21-32); CHLORIDE 105 mEq/L (98-107); POTASSIUM 3.6 mEq/L (3.5-5.1); SODIUM 139 mEq/L (136-145)
[2024-08-16 04:13] LABS: CALCIUM 9.6 mg/dL (8.7-10.4)
[2024-08-16 04:17] LABS: CREATININE 0.7 mg/dL (0.6-1.0); GLUCOSE 274 mg/dL (70-105)
[2024-08-16 04:18] LABS: UREA NITROGEN BLOOD 13 mg/dL (9-23)
[2024-08-16 04:19] LABS: ALANINE AMINOTRANSFERASE 36 IU/L (10-49); ALBUMIN 4.3 g/dL (3.2-4.8); ASPARTATE AMINOTRANSFERASE 38 IU/L (<34)
[2024-08-16 04:20] LABS: BILIRUBIN DIRECT < 0.1 mg/dL (<=3.0); BILIRUBIN TOTAL 0.2 mg/dL (0.1-1.0); PROTEIN TOTAL 7.2 g/dL (6.0-8.3)
[2024-08-16 04:22] LABS: TROPONIN I HIGH SENSITIVITY 165 ng/L (3.0-34)
[2024-08-16] MEDS ORDERED: KETO10TA2 MT (05:15)
[2024-08-16 05:23] VITALS: BP 114/75; PULSE 89; RESP 12; O2SAT 98
== END 2024-08-16 05:27 | disposition home or self-care (01) ==
LOC: ER 02:08
DX: R51.9 Headache, unspecified (principal)
CPT/HCPCS: 36415; 71045; 80048; 80076; 84484; 85025; 99284

== ENCOUNTER 2024-11-30 23:19 | Emergency (ER) | payer OTHER ==
[~2024-11-30] VITALS: Ht 160 cm; Wt 59.0 kg
[~2024-11-30 23:19] MED LIST changes: -ALBU18HF2 IH; +AMLO5TAB88 PO; -CARSR60 PO; -FURO20TA4 PO; -IBUP-2029 MT; -METF-414 MT; -OLAN7.5T50 PO; -QUET100T34 PO
[2024-11-30 23:29] VITALS: TEMP 36.7; O2SAT 99
[2024-12-01] MEDS ORDERED: NALO4SPR BOTHNSTRLS (01:34)
[2024-12-01 03:07] VITALS: BP 138/71; PULSE 95; RESP 16; O2SAT 95
== END 2024-12-01 03:08 | disposition home or self-care (01) ==
LOC: ER 23:19
DX: T40.2X1A Poisoning by other opioids, accidental (unintentional), initial encounter (principal); F20.9 Schizophrenia, unspecified; E11.9 Type 2 diabetes mellitus without complications; F17.200 Nicotine dependence, unspecified, uncomplicated; Z86.718 Personal history of other venous thrombosis and embolism; Z79.899 Other long term (current) drug therapy; Z79.84 Long term (current) use of oral hypoglycemic drugs; Z79.82 Long term (current) use of aspirin; Z79.51 Long term (current) use of inhaled steroids; Z79.01 Long term (current) use of anticoagulants; Y92.89 Other specified places as the place of occurrence of the external cause
CPT/HCPCS: 71045; 99283

== ENCOUNTER 2024-12-25 22:13 | Emergency (ER) | payer MEDICAID, OTHER ==
[~2024-12-25] VITALS: Ht 165.1 cm; Wt 77.0 kg
[~2024-12-25 22:13] MED LIST changes: +NALO4SPR BOTHNSTRLS
[2024-12-25 22:33] VITALS: O2SAT 100
[2024-12-26 01:26] LABS: BASOPHILS % 0.8 % (0.0-2.0); EOSINOPHILS % 3.0 % (0.0-5.0); HEMATOCRIT. 32.4 % (36.0-48.0); HEMOGLOBIN. 10.4 g/dL (12.0-16.0); LYMPHOCYTES % 53.6 % (20.0-50.0); MEAN PLATELET VOLUME 8.3 fl (7.4-10.4); MONOCYTES % 13.3 % (2.0-8.0); NEUTROPHILS % 29.3 % (40.0-76.0); PLATELET 197 x1000/uL (130-400); RED BLOOD CELL COUNT 3.90 mill/uL (4.2-5.4); RED CELL DISTRIBUTION WIDTH 18.2 % (11.6-14.6)
[2024-12-26 01:40] LABS: CREATININE 1.0 mg/dL (0.6-1.0)
[2024-12-26 01:41] LABS: ETHANOL BLOOD < 10 mg/dL (<10); UREA NITROGEN BLOOD 20 mg/dL (9-23)
[2024-12-26 01:42] LABS: ASPARTATE AMINOTRANSFERASE 29 IU/L (<34)
[2024-12-26 01:43] LABS: BILIRUBIN DIRECT 0.2 mg/dL (<=3.0); BILIRUBIN TOTAL 0.6 mg/dL (0.1-1.0); PROTEIN TOTAL 6.4 g/dL (6.0-8.3)
[2024-12-26 08:00] VITALS: BP 154/74; PULSE 71; RESP 12; TEMP 36.9; O2SAT 98
[2024-12-26 09:58] LABS: *AMPHETAMINES SCREEN URINE NEGATIVE (NEGATIVE)
[2024-12-26 09:59] LABS: *BARBITURATES SCREEN URINE NEGATIVE (NEGATIVE); *BENZODIAZEPINES SCREEN URINE NEGATIVE (NEGATIVE); *COCAINE SCREEN URINE PRESUMPTIVE POSITIVE (NEGATIVE); CANNABINOID URINE SCREEN PRESUMPTIVE POSITIVE (NEGATIVE); ECSTASY MDMA SCREEN URINE NEGATIVE (NEGATIVE); METHADONE URINE SCREEN NEGATIVE (NEGATIVE); OPIATES URINE SCREEN NEGATIVE (NEGATIVE); PHENCYCLIDINE URINE SCREEN NEGATIVE (NEGATIVE)
== END 2024-12-26 10:51 | disposition home or self-care (01) ==
LOC: ER 22:13
DX: R45.851 Suicidal ideations (principal); I10 Essential (primary) hypertension; E11.9 Type 2 diabetes mellitus without complications; F17.200 Nicotine dependence, unspecified, uncomplicated; Z79.82 Long term (current) use of aspirin; Z79.899 Other long term (current) drug therapy; Z98.890 Other specified postprocedural states; Z86.59 Personal history of other mental and behavioral disorders
CPT/HCPCS: 36415; 80048; 80076; 80305; 80307; 80320; 80329; 85025; 99285; G0480

== ENCOUNTER 2025-04-15 17:30 | Emergency (ER) | payer OTHER ==
[~2025-04-15] VITALS: Ht 162.6 cm; Wt 74.0 kg
[~2025-04-15 17:30] MED LIST changes: +APIX5TAB PO; -ARIP10TA86 PO; -CYCL10TA21 PO; -ESCI5TAB16 PO; -GABA-1180 MT; +PANT40TA51 PO; +PHEN100C12 PO; -PRIL20 PO; -QUET50TA23 PO; -RIVA10TA PO; -RIVA20TA MT; -XAR15 PO
[2025-04-15 22:17] LABS: CLARITY URINE TURBID (CLEAR); COLOR URINE YELLOW (YELLOW); GLUCOSE URINE 3+ (NEGATIVE); KETONES URINE TRACE (NEGATIVE); LEUKOCYTE ESTERASE URINE 2+ (NEGATIVE); NITRITE URINE NEGATIVE (NEGATIVE); OCCULT BLOOD URINE TRACE (NEGATIVE); PH URINE 6.5 (4.5-8.0); PROTEIN URINE 1+ (NEGATIVE); SPECIFIC GRAVITY URINE 1.044 (1.005-1.030); UROBILINOGEN URINE 1.0 E.U./dL (0.2-1.0)
[2025-04-15 22:28] LABS: BACTERIA URINE 4+; RBC URINE 0-2 /hpf (0-2); SQUAMOUS EPITHELIAL CELL URINE 1+ /lpf (RARE/1+)
[2025-04-15 22:33] LABS: *AMPHETAMINES SCREEN URINE PRESUMPTIVE POSITIVE (NEGATIVE); *BARBITURATES SCREEN URINE NEGATIVE (NEGATIVE); *BENZODIAZEPINES SCREEN URINE NEGATIVE (NEGATIVE); *COCAINE SCREEN URINE PRESUMPTIVE POSITIVE (NEGATIVE); METHADONE URINE SCREEN NEGATIVE (NEGATIVE)
[2025-04-15 22:34] LABS: CANNABINOID URINE SCREEN NEGATIVE (NEGATIVE); ECSTASY MDMA SCREEN URINE NEGATIVE (NEGATIVE); OPIATES URINE SCREEN NEGATIVE (NEGATIVE); PHENCYCLIDINE URINE SCREEN NEGATIVE (NEGATIVE)
[2025-04-16 00:39] LABS: BASOPHILS % 0.8 % (0.0-2.0); EOSINOPHILS % 0.8 % (0.0-5.0); HEMATOCRIT. 32.3 % (36.0-48.0); HEMOGLOBIN. 10.4 g/dL (12.0-16.0); LYMPHOCYTES % 33.2 % (20.0-50.0); MEAN PLATELET VOLUME 8.2 fl (7.4-10.4); MONOCYTES % 10.4 % (2.0-8.0); NEUTROPHILS % 54.8 % (40.0-76.0); PLATELET 200 x1000/uL (130-400); RED BLOOD CELL COUNT 3.93 mill/uL (4.2-5.4); RED CELL DISTRIBUTION WIDTH 19.9 % (11.6-14.6)
[2025-04-16 00:55] LABS: CREATININE 1.0 mg/dL (0.6-1.0)
[2025-04-16 00:56] LABS: ETHANOL BLOOD < 10 mg/dL (<10); PROTEIN TOTAL 6.2 g/dL (6.0-8.3); UREA NITROGEN BLOOD 10 mg/dL (9-23)
[2025-04-16 00:57] LABS: ASPARTATE AMINOTRANSFERASE 25 IU/L (<34)
[2025-04-16 00:58] LABS: BILIRUBIN DIRECT 0.1 mg/dL (<=3.0); BILIRUBIN TOTAL 0.4 mg/dL (0.1-1.0)
[2025-04-16] MEDS: NITROFURANTOIN 100MG M/M CAPSULE PO SCH (01:30)
[2025-04-16] MEDS ORDERED: NITROFURANTOIN MACROCRYSTAL 25MG CAPSULE PO SCH (01:30)
[2025-04-16] MEDS: IPRATROPIUM BROMIDE (0.02%) 0.5MG/2.5ML NEB HHN ONE (03:19)
[2025-04-16] MEDS: ALBUTEROL (0.083%) 2.5MG/3ML NEB HHN ONE (03:19)
[2025-04-16 03:20] VITALS: PULSE 68; RESP 18; O2SAT 98
[2025-04-16] MEDS: HYDROCODONE/ACETAMINOPHEN 5/325MG TABLET PO ONE (04:42)
[2025-04-16] MEDS ORDERED: NITROFURANTOIN 100MG M/M CAPSULE PO SCH (09:00)
[2025-04-16] MEDS: OLANZAPINE 10MG TABLET PO SCH (09:24)
[2025-04-16] MEDS: LEVETIRACETAM 500MG TABLET PO SCH (09:26)
[2025-04-16] MEDS: METFORMIN HCL 500MG TABLET PO SCH (09:26)
[2025-04-16] MEDS: AMLODIPINE 5MG TABLET PO SCH (09:26)
[2025-04-16] MEDS: ASPIRIN 81MG TABLET PO SCH (09:26)
[2025-04-16 10:18] VITALS: BP 145/66; PULSE 77; RESP 17; TEMP 36.8; O2SAT 100
[2025-04-16] MEDS ORDERED: ATORVASTATIN CALCIUM 40MG TABLET PO SCH (21:00)
== END 2025-04-16 10:21 | disposition home or self-care (01) ==
LOC: ER 17:30
DX: J06.9 Acute upper respiratory infection, unspecified (principal); R45.851 Suicidal ideations; N39.0 Urinary tract infection, site not specified; D64.9 Anemia, unspecified; E11.65 Type 2 diabetes mellitus with hyperglycemia; F14.90 Cocaine use, unspecified, uncomplicated; F15.90 Other stimulant use, unspecified, uncomplicated; F17.200 Nicotine dependence, unspecified, uncomplicated; I10 Essential (primary) hypertension; F20.9 Schizophrenia, unspecified; Z79.82 Long term (current) use of aspirin; Z79.84 Long term (current) use of oral hypoglycemic drugs; Z79.899 Other long term (current) drug therapy; Z20.822 Contact with and (suspected) exposure to COVID-19
CPT/HCPCS: 80305; 81003; 36415; 71045; 93005; 99285; 87426; 80076; 80048; 80307; 80329; 80320; 85025; 94640; 98960; Z7610 ×3; 94070; 94664; G0480